=== PATIENT | male | born 1970 | race Caucasian/White ===

== ENCOUNTER 2017-06-08 14:21 | Inpatient (IN) | payer OTHER ==
[~2017-06-08] VITALS: Ht 172.7 cm; Wt 137.9 kg
--- NOTE | ~2017-06-08 | O ---
[place], [place] OPERATIVE NOTE NAME: CHARY COBURN UNIT #: [id number] ROOM: 521 DOCTOR: TWAN ALONSO DPM BIRTHDATE: [birth year] DOS: 06/09/2017 PREOPERATIVE DIAGNOSIS: Abscess, left foot with possible osteomyelitis. POSTOPERATIVE DIAGNOSIS: Abscess, left foot with possible osteomyelitis. Pending pathology. PROCEDURE: Incision and drainage, left foot with bone biopsy, fourth left metatarsal head. SURGEON: Twan Alonso DPM ESTIMATED BLOOD LOSS: 8 mL. SPECIMEN: Bone, fourth left metatarsal. PACKIN.5 inch plain packing. ANESTHESIA: MAC. PROCEDURE IN DETAIL: The patient was brought to the operating room, placed on the operating table in supine position. Anesthesia was administered per Anesthesia Department. The left lower extremity was prepped and draped in usual aseptic manner. Local block of 10 mL of 0.5% Marcaine plain was utilized for local block. There was an ulceration plantar to the fourth left MPJ with necrotic tissue noted. A Barnum elevator was utilized and the ulceration probed both proximally and distally, approximately a total of 6 cm. A 15 blade was utilized to incise the area through and through subcutaneous tissue level to the exposed fourth left metatarsal head. The Barnum elevator also was utilized to follow a tract to the dorsal aspect of the medial aspect of the fourth left toe, which was dorsally linearly incised with a 15 blade. All necrotic tissue was debrided and excised. There was foul odor, serous and purulent bloody drainage noted which was cultured. A Jamshidi needle was utilized to obtain bone specimens to be sent to pathology to rule out osteomyelitis and for separate cultures of the bone including Gram stain, aerobic, anaerobic, acid fast and fungal cultures. Next, copious irrigation was performed with sterile saline. The area was packed with 0.5 inch plain packing, sterile compression dressing consisting of wet-to-dry dressing of 4 x 4s, Kerlix, ABD, and Gerald bandage was applied. Capillary refill time was less than 1 second to all digits of the left foot. The patient tolerated the procedure and anesthesia well and left the OR with vital signs stable, and neurovascular status intact. The patient will return to the nursing unit after clearance by Anesthesia and resume previous orders, antibiotics per Infectious Disease and the patient will be seen tomorrow for a followup. [place], [place] OPERATIVE NOTE NAME: CHARY COBURN UNIT #: [id number] ROOM: 521 DOCTOR: TWAN ALONSO DPM BIRTHDATE: [birth year] TWAN ALONOS DPM CM:CARLOSECORD:OPERATIVE NOTE [id number] TWAN ALONSO DPM 06/10/17 0834 interface
--- NOTE | ~2017-06-08 | CON ---
[place], [place] REPORT OF CONSULTATION NAME: CHARY COBURN UNIT #: [id number] ROOM: 521 DOCTOR: ULYSSES ALONSO DPM BIRTHDATE: [birth year] DOS: 06/09/2017 SUBJECTIVE: The patient is a 46-year-old male with chief complaint of swelling and redness of the left foot, which has been evident for the last 4 days. The patient has pain to the area. The patient tried treating it himself. 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 SOCIAL HISTORY: Denies alcohol, illicit drug use or smoking. FAMILY HISTORY: Mother age 65. Father age 66. ALLERGIES: No known allergies. PHYSICAL EXAMINATION: LOWER EXTREMITY: Pedal pulses are palpable. There is decreased hair growth. There is an ulceration of plantar fourth left MPJ with foul odor noted, surrounding undermining noted. There is also to the tissue distally to the plantar fourth left toe. Fluctuance and apparent purulent drainage under the skin noted. IMAGING: Review of the radiographs by myself reveals clinically correlating possible gas in the soft tissue, which would correlate with the fluctuant apparent drainage. The patient's arterial studies were normal. His left foot MRI revealed ulceration, plantar aspect of fourth metatarsal head with cellulitis, diffuse forefoot soft tissue swelling and reactive ostitis within the plantar aspect of the fourth metatarsal head. No definitive acute osteomyelitis. They stated that no drainable abscess or fluid collection and myositis of the intrinsic muscles of the foot; however, clinically the patient does appear to have an abscess and noted purulence underneath the skin with correlation on the x-rays. ASSESSMENT: Diabetic foot infection, possible osteomyelitis, abscess, left foot. PLAN: Evaluation and management. The patient will be taken for incision and drainage with bone biopsy later tonight. Bactroban dressing applied currently and we will proceed with surgical intervention. [place], [place] REPORT OF CONSULTATION NAME: CHARY COBURN UNIT #: [id number] ROOM: 521 DOCTOR: ULYSSES ALONSO DPM BIRTHDATE: [birth year] ULYSSES ALONSO DPM CM:CONSTR:REPORT OF CONSULTATION 1211 06/09/17 2232 interface
--- NOTE | ~2017-06-08 | PROC NOTE ---
[place], [place] PROCEDURE NOTE NAME: CHARY COBURN UNIT #: [id number] ROOM: 521 DOCTOR: Silke Yepez BIRTHDATE: [birth year] DOS: 06/13/2017 REFERRING PHYSICIAN: Dr. Alanis. AGE: 46 years. BACKGROUND MEDICAL HISTORY: The patient was admitted to the hospital due to sepsis in his foot and a diabetic ulcer and was diagnosed with acute renal failure, cellulitis hyperglycemia, and elevated blood pressure. The patient also has a diagnosis of right lower lobe pneumonia and a modified barium swallow study was ordered to rule out aspiration. The patient reports no difficulty at bedside and nurses notes indicated no difficulty during meals at this time, and the patient states that he has no difficulty coughing or choking during the meals. Oral assessment was completed and lingual range of motion was decreased. Labial range of motion was within functional limits as well as strength and coordination, eliciting a dry cough was within functional limits and eliciting a dry swallow was also within functional limits at this time. METHODS OF MATERIALS: The patient was seated in a wheelchair and viewed in the lateral plane. The patient was given thin liquids by cup and by straw as well as nectar thick liquids by cup, pureed consistency to soft consistencies and a regular consistency material, all coated in liquid beers first for viewing under fluoroscopy. ORAL PHASE: This phase of swallow was essentially unremarkable. At this time, the patient demonstrated adequate labial seal and mastication. The patient's oral transit times were within functional limits. No piecemeal deglutition was noted and bolus formation was adequate. At this time, the tongue in the palate contact and tongue in the posterior pharyngeal wall contact were within functional limits. No tongue pumping was noted and Hubert function was noted as well. PHARYNGEAL PHASE: The patient demonstrated mild deficits with the pharyngeal phase at this time. Swallow trigger was timely this date and no premature loss of bolus was noted. The vallecular stasis did not occur during the assessment aside from minimal stasis noted after the swallow with puree consistency; however, this was cleared. Piriform stasis was also not noted during the assessment this date. The patient demonstrated flash penetration of thin liquids and nectar thick liquids; however, improvement was noted with a chin tuck. No aspiration occurred at any time during the assessment. ESOPHAGEAL PHASE: This phase of swallow was not formally assessed; however, no regurgitation of material was noted during the assessment. IMPRESSION AND RECOMMENDATIONS: The patient presents with mild pharyngeal deficits; however, no diet changes are recommended as the patient is tolerating his current diet and no aspiration was noted during the assessment. Flash penetration is normal and was cleared this date by the patient. It is recommended that the patient remain on his present diet and continued to eat slowly during meals. Monitor the patient for any changes in condition. The [place], [place] PROCEDURE NOTE NAME: CHARY COBURN UNIT #: [id number] ROOM: 521 DOCTOR: Silke Yepez BIRTHDATE: [birth year] patient also presented with involuntary movements during the assessment and throughout the session today of his trunk, head, neck, and arms. The patient was frequently moving during the assessment and it is possible that the movement contributed to his flash penetration as he was constantly moving while trying to swallow. This appears to be baseline for the patient. Therefore, no diet changes are recommended at this time. If you have any questions or comments regarding this assessment, please contact the speech pathology department at [phone]. Thank you for this referral. Silke Yepez CM:PROCNOTE:PROCEDURE NOTE [id number] Silke Yepez
--- NOTE | ~2017-06-08 | PR ---
[place], [place] PROGRESS NOTE NAME: CHARY COBURN UNIT #: [id number] ROOM: 521 DOCTOR: ULYSSES ALONSO DPM BIRTHDATE: [birth year] DOS: 06/11/2017 SUBJECTIVE: The patient is seen for follow up post I and D of abscess, left foot, day 2. The patient feels less discomfort at this time. OBJECTIVE: Upon removal of the dressing and packing, there is definite decrease in erythema and edema from pre-surgical appearance. There are no further signs of purulent drainage, much improved overall. ASSESSMENT: Postop incision and drainage of abscess, left foot. PLAN: The packing and dressing change this visit. Discussed the case with the patient that he may need delayed primary closure or a wound VAC and possible hyperbaric oxygen treatment along with proper offloading for the diabetic foot and IV antibiotics. Time span depending on results of the bone biopsy and cultures and to be determined by ID. I will write for physical therapy for crutch training and the patient can ambulate with no weight to the left foot with crutches. ULYSSES ALONSO DPM CM:KRYSTLE [id number] ULYSSES ALONSO DPM 06/11/17 1558 interface
--- NOTE | ~2017-06-08 | PR ---
[place], [place] PROGRESS NOTE NAME: CHARY COBURN UNIT #: [id number] ROOM: 521 DOCTOR: UYLSSES ALONSO DPM BIRTHDATE: [birth year] DOS: 06/10/2017 SUBJECTIVE: The patient is seen postop I and D of abscess of left foot, day #1. The patient has some discomfort. OBJECTIVE: Upon removal of the dressing and packing, there is decreased erythema and decreased edema. There are no further signs of purulent drainage or foul odor. The area has improved from surgery. ASSESSMENT: Post incision and drainage of abscess with bone biopsy, left foot. PLAN: Dressing and packing changes visit ordered, half inch plain packing with wet to dry dressing twice a day. Discussed with the patient and his daughter. We may start a wound VAC on Monday. We will perform the b.i.d. packing and dressing changes until that point, continue antibiotics per Infectious Disease. Cultures results are still pending. Bone biopsy results still pending. The patient will be seen tomorrow or Monday for followup. ULYSSES ALONSO DPM CM:KRYSTLE [id number] ULYSSES ALONSO DPM 06/10/17 1211 interface
--- NOTE | ~2017-06-08 | PR ---
[place], [place] PROGRESS NOTE NAME: CHARY COBURN UNIT #: [id number] ROOM: 521 DOCTOR: RAGHAV GARCIA DPM BIRTHDATE: [birth year] DOS: 06/12/2017 SUBJECTIVE: The patient is seen postop day 3, status post I and D of abscess, left foot. States he feels well, only minimal discomfort. Denies fever, chills, nausea, vomiting or night sweats. OBJECTIVE: Upon removal of packing and dressing, the area is very clean and granular with no purulent drainage or malodor. The area is clean. No surrounding edema or erythema. No signs of remaining abscess and only minimal erythema is seen. ASSESSMENT: Postop day #3, status post incision and drainage of abscess, left foot, doing well. PLAN: Packing and dressing is changed. Discussed with the patient it is okay from Podiatry standpoint if can be discharged, nonweightbearing with crutches, with packing and dressing changes daily. He has an appointment tomorrow to follow up in the wound care center. He can follow up there for postop visit in crutches, nonweightbearing with daily wound care. If he is still there tomorrow, we will see him. If not, he will follow up at wound care center. RAGHAV GARCIA DPM CM:PNTRANS [id number] RAGHAV GARCIA DPM 06/12/17 1434 interface
--- NOTE | ~2017-06-08 | PR ---
[place], [place] PROGRESS NOTE NAME: CHARY COBURN UNIT #: [id number] ROOM: 521 DOCTOR: ULYSSES ALONSO DPM BIRTHDATE: [birth year] DOS: 06/13/2017 SUBJECTIVE: The patient is seen post I and D of abscess, left foot. The patient is resting comfortably without pain. OBJECTIVE: Upon removal of dressing and packing post-abscess, it is granulating well. No signs of purulent drainage or foul odor. No erythema or edema. ASSESSMENT: Post incision and drainage of abscess, left foot with bone biopsy. PLAN: Packing and dressing changes visit. The patient is being discharged to be nonweightbearing with crutches. Home nursing is to apply packing and wet to dry dressing daily. I spoke with Dr. Del Castillo at the [facility] who will see the patient for possible hyperbaric oxygen treatment and possible wound VAC or delayed closure. If our assistance is needed to perform delayed closure procedure, we will perform the procedure. But again, I think the patient may be a candidate for the hyperbaric oxygen treatment along with wound VAC and antibiotics per Infectious Disease. ULYSSES ALONSO DPM CM:KRYSTLE [id number] ULYSESS ALONSO DPM 06/13/171741 interface
[~2017-06-08 14:21] MED LIST: ANAPROX DS550 MG PO; CLEOCIN HCL150 MG PO; FLOMAX0.4 MG PO; HYDROCODONE BIT1 T11 PO; VICODIN 5/500 505 MG PO
[2017-06-08 14:44] VITALS: BP 150/92
[2017-06-08 15:27] LABS: BASO # 0.1 10*3/uL (0.0-0.1); BASO % 0.4 % (0.0-1.0); EOS # 0.1 10*3/uL (0.0-0.4); EOS % 0.9 % (1.0-4.0); HEMATOCRIT 40.9 % (42.0-52.0); HEMOGLOBIN 14.4 g/dl (14.0-18.0); IG # 0.1 10*3/uL (0.0-0.1); LYMPH # 2.1 10*3/uL (1.3-4.4); LYMPH % 15.9 % (27.0-41.0); MEAN CELL VOLUME 83.3 fl (80.0-94.0); MEAN CORPUSCULAR HGB 29.3 pg (27.0-31.0); MEAN CORPUSCULAR HGB CONC 35.2 g/dl (33.0-37.0); MONO # 0.9 10*3/uL (0.1-1.0); MONO % 6.7 % (3.0-9.0); NEUT # 10.1 10*3/uL (2.3-7.9); NEUT % 75.6 % (47.0-73.0); PLATELET COUNT AUTOMATED 218 10*3/uL (130-400); RED BLOOD COUNT 4.91 10*6/uL (4.50-5.90); RED CELL DISTRI WIDTH 13.5 % (0-14.5); WHITE BLOOD COUNT 13.4 10*3/uL (4.8-10.8)
[2017-06-08 15:45] LABS: ALBUMIN 3.2 gm/dl (3.1-4.5); ALKALINE PHOSPHATASE 63 U/L (45-117); BILIRUBIN, TOTAL 1.4 mg/dl (0.2-1.0); BUN 17 mg/dl (7-24); CARBON DIOXIDE 24 mmol/L (21-32); CHLORIDE 97 mmol/L (98-107); EST GLOM FILT AFRICAN AMERICAN 48 ml/min; GLUCOSE 398 mg/dL (65-99); POTASSIUM 4.2 mmol/L (3.5-5.1); SGOT/AST 12 IU/L (3-35); SGPT/ALT 22 U/L (12-78); SODIUM 133 mmol/L (136-145)
[2017-06-08 15:46] LABS: TROPONIN I < 0.015 ng/ml (<0.045)
[2017-06-08 16:51] VITALS: BP 152/70
[2017-06-08 17:19] VITALS: BP 155/77
[2017-06-08 17:23] LABS: LA>2 REFLEX 2 HR DRAW NOW
[2017-06-08 17:42] VITALS: BP 156/78
[2017-06-08 20:00] VITALS: BP 105/46
[2017-06-09] VITALS (8 sets, daily range): BP systolic 130–161; BP diastolic 63–102
[2017-06-09 06:24] LABS: BASO % 0.4 % (0.0-1.0); EOS # 0.3 10*3/uL (0.0-0.4); EOS % 2.3 % (1.0-4.0); HEMATOCRIT 39.4 % (42.0-52.0); HEMOGLOBIN 13.2 g/dl (14.0-18.0); LYMPH % 18.5 % (27.0-41.0); MEAN CELL VOLUME 85.5 fl (80.0-94.0); MEAN CORPUSCULAR HGB 28.6 pg (27.0-31.0); MEAN CORPUSCULAR HGB CONC 33.5 g/dl (33.0-37.0); MEAN PLATELET VOLUME 10.4 fl (9.6-12.3); MONO # 0.8 10*3/uL (0.1-1.0); MONO % 7.3 % (3.0-9.0); NEUT # 7.9 10*3/uL (2.3-7.9); NEUT % 71.1 % (47.0-73.0); PLATELET COUNT AUTOMATED 204 10*3/uL (130-400); RED BLOOD COUNT 4.61 10*6/uL (4.50-5.90); RED CELL DISTRI WIDTH 13.8 % (0-14.5)
[2017-06-09 06:42] LABS: ALBUMIN 2.6 gm/dl (3.1-4.5); ALKALINE PHOSPHATASE 56 U/L (45-117); BUN 17 mg/dl (7-24); CARBON DIOXIDE 25 mmol/L (21-32); CHLORIDE 103 mmol/L (98-107); CHOLESTEROL 127 mg/dL (<200); EST GLOM FILT AFRICAN AMERICAN > 60 ml/min; GLUCOSE 308 mg/dL (65-99); HDL CHOLESTEROL 28 mg/dl (40-60); LDL CHOLESTEROL 25 mg/dL (9-159); MAGNESIUM 1.9 mg/dL (1.5-2.1); PHOSPHOROUS 3.1 mg/dL (2.5-4.9); SGOT/AST 13 IU/L (3-35); SGPT/ALT 17 U/L (12-78); SODIUM 137 mmol/L (136-145); TOTAL PROTEIN 6.8 gm/dL (6.4-8.2); TRIGLYCERIDES 368 mg/dl (<150); VLDL CHOLESTEROL 74 mg/dL (6-40)
[2017-06-09 06:57] LABS: HEMOGLOBIN A1c 10.1 % (4.8-5.6)
[2017-06-09 07:34] LABS: FOLIC ACID 11.56 ng/mL (>5.38); VITAMIN D, 25-HYDROXY 14.6 ng/mL (30-100)
[2017-06-10] VITALS: BP 144/72
[2017-06-10 06:17] LABS: BASO # 0.1 10*3/uL (0.0-0.1); BASO % 0.4 % (0.0-1.0); EOS # 0.3 10*3/uL (0.0-0.4); EOS % 2.3 % (1.0-4.0); HEMATOCRIT 39.9 % (42.0-52.0); HEMOGLOBIN 13.7 g/dl (14.0-18.0); IG # 0.1 10*3/uL (0.0-0.1); LYMPH # 2.2 10*3/uL (1.3-4.4); MEAN CELL VOLUME 85.6 fl (80.0-94.0); MEAN CORPUSCULAR HGB 29.4 pg (27.0-31.0); MEAN CORPUSCULAR HGB CONC 34.3 g/dl (33.0-37.0); MEAN PLATELET VOLUME 9.4 fl (9.6-12.3); MONO # 0.9 10*3/uL (0.1-1.0); MONO % 7.6 % (3.0-9.0); NEUT # 8.1 10*3/uL (2.3-7.9); NEUT % 70.2 % (47.0-73.0); PLATELET COUNT AUTOMATED 219 10*3/uL (130-400); RED BLOOD COUNT 4.66 10*6/uL (4.50-5.90); RED CELL DISTRI WIDTH 13.8 % (0-14.5); WHITE BLOOD COUNT 11.6 10*3/uL (4.8-10.8)
[2017-06-10 06:39] LABS: POTASSIUM 4.2 mmol/L (3.5-5.1)
[2017-06-10 08:00] VITALS: BP 156/78
[2017-06-10 12:00] VITALS: BP 148/75
[2017-06-10 14:14] VITALS: BP 176/88
[2017-06-10 16:00] VITALS: BP 154/81
[2017-06-10 20:00] VITALS: BP 160/72
[2017-06-11] VITALS: BP 135/70
[2017-06-11 06:18] LABS: BASO % 0.4 % (0.0-1.0); EOS # 0.2 10*3/uL (0.0-0.4); EOS % 2.4 % (1.0-4.0); HEMATOCRIT 37.5 % (42.0-52.0); HEMOGLOBIN 12.8 g/dl (14.0-18.0); LYMPH # 2.3 10*3/uL (1.3-4.4); LYMPH % 25.4 % (27.0-41.0); MEAN CELL VOLUME 85.6 fl (80.0-94.0); MEAN CORPUSCULAR HGB 29.2 pg (27.0-31.0); MEAN CORPUSCULAR HGB CONC 34.1 g/dl (33.0-37.0); MEAN PLATELET VOLUME 9.7 fl (9.6-12.3); MONO # 0.7 10*3/uL (0.1-1.0); MONO % 7.3 % (3.0-9.0); NEUT # 5.8 10*3/uL (2.3-7.9); NEUT % 64.1 % (47.0-73.0); PLATELET COUNT AUTOMATED 235 10*3/uL (130-400); RED BLOOD COUNT 4.38 10*6/uL (4.50-5.90); RED CELL DISTRI WIDTH 13.5 % (0-14.5); WHITE BLOOD COUNT 9.1 10*3/uL (4.8-10.8)
[2017-06-11 06:20] LABS: ALBUMIN 2.4 gm/dl (3.1-4.5); BILIRUBIN, TOTAL 1.2 mg/dl (0.2-1.0); PHOSPHOROUS 3.9 mg/dL (2.5-4.9); TOTAL PROTEIN 6.9 gm/dL (6.4-8.2)
[2017-06-11 08:00] VITALS: BP 134/86
[2017-06-11 12:00] VITALS: BP 130/82
[2017-06-11 16:00] VITALS: BP 158/89
[2017-06-11 20:00] VITALS: BP 160/90
[2017-06-12] VITALS: BP 124/65
[2017-06-12 06:46] LABS: BASO % 0.3 % (0.0-1.0); EOS # 0.1 10*3/uL (0.0-0.4); EOS % 0.5 % (1.0-4.0); HEMATOCRIT 39.5 % (42.0-52.0); HEMOGLOBIN 13.6 g/dl (14.0-18.0); IG # 0.1 10*3/uL (0.0-0.1); LYMPH # 1.9 10*3/uL (1.3-4.4); LYMPH % 13.8 % (27.0-41.0); MEAN CELL VOLUME 83.3 fl (80.0-94.0); MEAN CORPUSCULAR HGB 28.7 pg (27.0-31.0); MEAN CORPUSCULAR HGB CONC 34.4 g/dl (33.0-37.0); MEAN PLATELET VOLUME 9.5 fl (9.6-12.3); MONO # 0.7 10*3/uL (0.1-1.0); MONO % 5.2 % (3.0-9.0); NEUT # 10.9 10*3/uL (2.3-7.9); NEUT % 79.5 % (47.0-73.0); PLATELET COUNT AUTOMATED 296 10*3/uL (130-400); RED BLOOD COUNT 4.74 10*6/uL (4.50-5.90); RED CELL DISTRI WIDTH 13.2 % (0-14.5); WHITE BLOOD COUNT 13.7 10*3/uL (4.8-10.8)
[2017-06-12 08:00] VITALS: BP 126/52; BP 126/74
[2017-06-12 12:00] VITALS: BP 136/65
[2017-06-12] MEDS ORDERED: KEFLEX500 M1 PO (14:17)
[2017-06-12 16:00] VITALS: BP 134/75
[2017-06-12 20:00] VITALS: BP 156/99
[2017-06-13] VITALS: BP 133/76
[2017-06-13 07:47] LABS: BASO # 0.1 10*3/uL (0.0-0.1); BASO % 0.6 % (0.0-1.0); EOS # 0.3 10*3/uL (0.0-0.4); EOS % 3.5 % (1.0-4.0); HEMATOCRIT 40.3 % (42.0-52.0); HEMOGLOBIN 13.8 g/dl (14.0-18.0); IG # 0.1 10*3/uL (0.0-0.1); LYMPH # 2.7 10*3/uL (1.3-4.4); LYMPH % 29.1 % (27.0-41.0); MEAN CELL VOLUME 85.6 fl (80.0-94.0); MEAN CORPUSCULAR HGB 29.3 pg (27.0-31.0); MEAN CORPUSCULAR HGB CONC 34.2 g/dl (33.0-37.0); MEAN PLATELET VOLUME 9.4 fl (9.6-12.3); MONO # 0.6 10*3/uL (0.1-1.0); MONO % 5.9 % (3.0-9.0); NEUT # 5.7 10*3/uL (2.3-7.9); NEUT % 60.3 % (47.0-73.0); PLATELET COUNT AUTOMATED 264 10*3/uL (130-400); RED BLOOD COUNT 4.71 10*6/uL (4.50-5.90); RED CELL DISTRI WIDTH 13.5 % (0-14.5); WHITE BLOOD COUNT 9.4 10*3/uL (4.8-10.8)
[2017-06-13 08:00] VITALS: BP 130/78
[2017-06-13 08:07] LABS: POTASSIUM 3.9 mmol/L (3.5-5.1)
[2017-06-13 12:00] VITALS: BP 127/70
[2017-06-13] MEDS ORDERED: LEVEMIR10 ML SC (12:10)
[2017-06-13] MEDS ORDERED: D-1000 185 MG-11 TAB PO (12:10)
[2017-06-13] MEDS ORDERED: MUCINEX ER600 MG PO (12:10)
[2017-06-13] MEDS ORDERED: LOPRESSOR25 MG PO (12:10)
[2017-06-13] MEDS ORDERED: HUMALOG100 U/ML SC (12:10)
[2017-06-13] MEDS ORDERED: NEURONTIN100 MG PO (12:12)
[2017-06-14 15:07] LABS: LEGIONELLA URINARY ANTIGEN Negative (Negative); ORGANISM ID Not indicated. (.); SPECIMEN SOURCE Urine (.); STREPTOCOCCUS PNEUMONIAE AG Negative (Negative)
== END 2017-06-13 13:44 | disposition home or self-care (01) | DRG 853 ==
LOC: ED 14:21 → EDHOLD 16:38 → 5E 16:38
PROVIDERS: Hospitalist; Internal Medicine; Registered Nurse
PROC: 0QBP0ZX Excision of Left Metatarsal, Open Approach, Diagnostic (ICD-10-PCS; principal; 2017-06-09)
PROC: BD11YZZ Fluoroscopy of Esophagus using Other Contrast (ICD-10-PCS; 2017-06-13)
DX: A41.9 Sepsis, unspecified organism (principal); N17.0 Acute kidney failure with tubular necrosis; E43 Unspecified severe protein-calorie malnutrition; E87.2 Acidosis; E11.621 Type 2 diabetes mellitus with foot ulcer; J18.1 Lobar pneumonia, unspecified organism; E87.8 Other disorders of electrolyte and fluid balance, not elsewhere classified; B86 Scabies; L03.116 Cellulitis of left lower limb; E87.1 Hypo-osmolality and hyponatremia; Z68.42 Body mass index [BMI] 45.0-49.9, adult; R65.20 Severe sepsis without septic shock; E66.01 Morbid (severe) obesity due to excess calories; E83.51 Hypocalcemia; E11.65 Type 2 diabetes mellitus with hyperglycemia; E80.6 Other disorders of bilirubin metabolism; L97.529 Non-pressure chronic ulcer of other part of left foot with unspecified severity; E55.9 Vitamin D deficiency, unspecified; E78.2 Mixed hyperlipidemia; Z71.3 Dietary counseling and surveillance

== ENCOUNTER → 2017-06-20 | Outpatient (CLI) | payer OTHER ==
[~2017-06-20] MED LIST changes: +D-1000 185 MG-11 TAB PO; +HUMALOG100 U/ML SC; +KEFLEX500 M1 PO; +LEVEMIR10 ML SC; +LOPRESSOR25 MG PO; +MUCINEX ER600 MG PO; +NEURONTIN100 MG PO
== END | disposition home or self-care (01) ==
LOC: RESCLI 06-13 02:26
DX: E11.621 Type 2 diabetes mellitus with foot ulcer (principal); I10 Essential (primary) hypertension; L97.509 Non-pressure chronic ulcer of other part of unspecified foot with unspecified severity; G62.9 Polyneuropathy, unspecified; G25.0 Essential tremor; E55.9 Vitamin D deficiency, unspecified; E66.09 Other obesity due to excess calories

== ENCOUNTER 2017-07-04 00:04 | Inpatient (IN) | payer OTHER ==
[~2017-07-04] VITALS: Ht 172.7 cm; Wt 128.0 kg
[2017-07-04] VITALS (13 sets, daily range): BP systolic 101–163; BP diastolic 62–89
--- NOTE | ~2017-07-04 | CON ---
[place], [place] REPORT OF CONSULTATION NAME: CHARY COBURN UNIT #: [id number] ROOM: 516 DOCTOR: ULYSSES ALONSO DPM BIRTHDATE: [birth year] DOS: 07/04/2017 SUBJECTIVE: The patient is a 46-year-old male who is seen for infection again to the left foot. The patient was doing well with outpatient therapy and improving and a wound VAC was ordered and was to be applied today at the office; however, over the last 2 days, the patient and his family member noticed increased redness and swelling and yesterday, they noted drainage and a foul odor and the patient went to the Emergency Room and was subsequently admitted. PAST MEDICAL HISTORY: Acute renal failure, diabetes, pneumonia, hyperlipidemia, moderate protein calorie malnutrition, morbid obesity, vitamin D deficiency, history of hip surgery, essential tremor, disease. SOCIAL HISTORY: Denies alcohol, illicit drug use or smoking. FAMILY HISTORY: Mother at age 65. Father at age 66. ALLERGIES: No known allergies. PHYSICAL EXAMINATION: LOWER EXTREMITIES: Examination, pedal pulses palpable. There is erythema to the left forefoot. There is purulent drainage and foul odor noted from the previous incision site to the plantar left foot consistent with abscess. The erythema extending to the dorsal foot. There is mild tenderness to the area noted. ASSESSMENT: Abscess, left foot, possible progressing osteomyelitis. PLAN: Evaluation and management discussed with the patient's family member. The patient needs to return to the operating room for incision and drainage with possible additional bone biopsy. The patient will be n.p.o. immediately and will be taken to surgery later today. Consent surgery would be incision and drainage, left foot with bone biopsy, left foot. ULYSSES ALONSO DPM CM:CONSTR:REPORT OF CONSULTATION 1139 07/04/17 1206 interface
--- NOTE | ~2017-07-04 | PR ---
[place], [place] PROGRESS NOTE [facility]: [facility]URN [id number] UNIT #: [id number] ROOM: 516 DOCTOR: RAGHAV GARCIA DPM BIRTHDATE: [birth year] DOS: 07/07/2017 SUBJECTIVE: The patient is seen postop day 3, I and D of abscess, left foot. He states he thinks he is feeling better and his left foot is not as painful. OBJECTIVE: Wound VAC is removed at this time. There is noted to be edematous and erythematous area at the dorsal left distal fourth intermetatarsal space and dorsal left fifth metatarsal. Upon probe in the area plantarly and squeezing the dorsal foot, there is about 2-3 mL of purulence that are removed from the area that appears to be an abscess at the dorsal lateral left forefoot. The area is warm and red and the plantar wound tracks dorsally to this area. The patient's white blood cell count is still elevated at 11.5 and his sed rate is still elevated at 135. ASSESSMENT: Status post I and D, left foot, with another abscess dorsal lateral left forefoot. PLAN: Wound VAC was removed. Again, there was found to be an abscess dorsal lateral left forefoot. The plantar wound appears to tract to dorsal and lateral into the area of the abscess. I called Dr. Omer and also discussed with the patient. I feel the patient needs to be taken back to surgery to debride the wound, incise that area and flush it out. This was discussed with the patient, need to do this today. The patient was made n.p.o. and consent will be obtained for incision and drainage of abscess, left foot, with debridement. I think the patient will benefit from further debridement, irrigation and then obviously incising the area at the dorsal lateral foot. He is agreeable with this. I discussed possible complications with the patient. We will try to get this set up later today for Dr. Omer and again, he was made n.p.o. now. He has not eaten since breakfast. RAGHAV GARCIA DPM CM:PNTRANS [id number] RAGHAV GARCIA Sejal 07/11/17 0712 interface
--- NOTE | ~2017-07-04 | O ---
[place], [place] OPERATIVE NOTE NAME: CHARY COBURN UNIT #: [id number] ROOM: 516 DOCTOR: TWAN ALONSO DPM BIRTHDATE: [birth year] DOS: 07/07/2017 INTERIM NOTE: The patient was seen on the nursing unit today by Dr. Hoang who noted a new abscess site overlying the fifth left metatarsophalangeal joint. He was able to drain pus from the area, but thought that it may track deeper, subsequently it was decided to proceed with additional incision and drainage of the left foot with debridement. PREOPERATIVE DIAGNOSIS: Abscess, left foot with osteomyelitis. POSTOPERATIVE DIAGNOSIS: Abscess, left foot with osteomyelitis with new pockets of abscess from previous surgical intervention performed 2 days ago. PROCEDURE: Incision and drainage of multiple pockets of abscess, left foot and both plantar and dorsal aspect. SURGEON: Twan Alonso DPM FORENSIC STRUCTURAL ENGINEER: None. ESTIMATED BLOOD LOSS: Approximately 10 mL. ANESTHESIA: LMAC. PACKING: One-inch plain packing. SPECIMEN: None. PROCEDURE DETAILS: The patient was brought to the operating room placed on operating table in supine position. Anesthesia administered per Anesthesia Department. Local infiltration of 10 mL of 0.5% Marcaine plain was utilized for local block. The left foot was prepped and draped in usual aseptic manner. Attention was directed to the plantar incision site, which was probed with Amalia elevator, new additional pockets were identified and incised with a #15 blade. A new sinus tract was noted to track to the dorsal fifth left MPJ, which was linearly incised approximately 3 cm in length to the dorsal foot, this was noted to track dorsally proximally, which was opened with #15 blade and drained. The sinus tract was opened again also to the medial aspect of the fourth left toe. Necrotic nonviable tissue was excised with rongeur. No further sinus tracts were identified and approximately 10 mL of serous drainage was noted and drained. Culture was taken of the dorsal fifth MPJ abscess site. The area was copiously flushed with pulse power irrigation with sterile saline. The areas were packed with 1 inch plain packing with wet-to-dry dressing with 4 x 4s, Kerlix, ABD pads, and Gerald bandage. The patient tolerated the procedure and anesthesia well and left the OR with vital signs stable, neurovascular status intact. Capillary refill time was still noted to be within normal limits to all digits of the left foot. The patient will return to nursing unit and resume previous orders. Elevate the left foot, apply ice 30 minutes per hour under the left knee while awake. No weightbearing in the left foot. Reinforce dressing as needed, and I will see the patient tomorrow morning and possibly resume the [place], [place] OPERATIVE NOTE NAME: CHARY COBURN UNIT #: [id number] ROOM: 516 DOCTOR: TWAN ALONSO DPM BIRTHDATE: [birth year] wound VAC at that time after removal of the packing. I discussed with the patient both preoperatively and postoperatively, he is still at severe risk for limb loss, loss of digits or forefoot. The patient understood this and stated he would be more compliant at this time. The patient will be released back to the nursing unit on the fifth floor after discharge via clearance by Anesthesia. TWAN ALONSO DPM CM:OPRECORD:OPERATIVE NOTE [id number] TWAN ALONSO DPM 07/08/17 0547 interface
--- NOTE | ~2017-07-04 | PR ---
[place], [place] PROGRESS NOTE NAME: CHARY COBURN UNIT #: [id number] ROOM: 516 DOCTOR: ULYSSES ALONSO DPM BIRTHDATE: [birth year] DOS: 07/06/2017 SUBJECTIVE: The patient is seen postop day 2 post I and D of abscess. The patient feels decreased pain at this time to the left foot. OBJECTIVE: The wound VAC is in place. Decreased surrounding erythema, decreased pain to the foot. Decreased overall edema. Results of the patient's blood culture showed no bacterial growth. The patient's WBC has decreased somewhat to 11.7. C-reactive protein has decreased to 7.06. The patient's wound culture consistent with E. coli. ASSESSMENT: Post incision and drainage of abscess with Escherichia coli infection. PLAN: Continue wound VAC. Continue IV antibiotics per ID who has not seen the patient yet. Discussed the patient's case with Dr. Monreal on the floor. Ordered new CBC with diff, sed rate and C-reactive protein for tomorrow morning. Discussed the case with Dr. Hoang who will see the patient tomorrow. If no improvement, possible additional debridement may need to be performed; however, the patient currently appears to be improving. We will monitor the patient closely. The patient is not stable enough to be discharged in my opinion at this time and is still at very high risk for limb loss. I discussed this with the patient in detail. He needs to maintain compliance this time after his discharge and not go back to work and is to maintain nonweightbearing. Still awaiting for results of the bone biopsy. The patient will be seen again tomorrow for continued care and followup and the patient will need at least 2 weeks of IV antibiotic treatment potentially 6 weeks if the bone biopsy is positive. ULYSSES ALONSO DPM CM:PNRENAN 30 [phone] ULYSSES ALONSO DPM 07/06/172120 interface
--- NOTE | ~2017-07-04 | O ---
[place], [place] OPERATIVE NOTE NAME: CHARY COBURN UNIT #: [id number] ROOM: 516 DOCTOR: TWAN ALONSO DPM BIRTHDATE: [birth year] DOS: 07/05/2017 INTERIM NOTE: The patient presents as a 46-year-old male for surgical intervention of the left foot. The patient did not offload his foot as directed after his previous surgery and subsequently became infected again. The patient was admitted again to the hospital last night. The patient had been seen last and the wound was clean with no signs of purulent drainage or foul odor and a wound VAC was ordered for the patient. The patient was seen preoperatively. Discussed with the patient and his family member he needs to maintain compliance as the patient is at extreme risk for limb loss and sepsis. We decided to proceed with incision and drainage of left foot with bone biopsy. PREOPERATIVE DIAGNOSIS: Abscess, left foot with possible osteomyelitis. POSTOPERATIVE DIAGNOSIS: Multiple pockets of abscess throughout the plantar left foot all different tissue levels and possible osteomyelitis, pending pathology. PROCEDURE: Incision and drainage of multiple pockets of abscess, plantar aspect of left foot extending the dorsal left foot with bone biopsy of the fourth left metatarsal. SURGEON: Twan Alonso DPM. MEDICAL FACILITIES SECTION DIRECTOR: None. ESTIMATED BLOOD LOSS: Approximately 20 mL. ANESTHESIA: LMAC Packin.5 inch plain packing. SPECIMEN: From the fourth left metatarsal. DESCRIPTION OF PROCEDURE: The patient was brought to operating room and placed on the operating table in supine position. Anesthesia was administered per Anesthesia Department. The left lower extremity was prepped and draped in usual aseptic manner. No tourniquet was utilized during the procedure. Local infiltration of 8 mL of 0.5% Marcaine plain was utilized for local block. Attention was directed to the previous incision site at the plantar aspect of left foot where purulent drainage was noted. The wound was probed with a [place] elevator and was noted to extend proximally. This was opened down to the deep layers of the foot with a #15 blade. There are multiple pockets noted throughout the different tissue planes with pockets of purulent drainage. These were all opened with a 15 blade and rongeur. The necrotic nonviable tissue was debrided with a rongeur. The wound was noted to track to the dorsal aspect of the fourth left MPJ. This was also opened with a 15 blade. All pockets throughout the tissue planes were opened and drained. There was approximately 15 mL of purulent drainage that was drained with foul odor. Deep cultures were taken of the soft tissue and separately of the bone for Gram stain, aerobic, anaerobic, acid fast and fungal cultures. A Jamshidi needle was utilized to obtain bone from the fourth left metatarsal, which samples were sent for both [place], [place] OPERATIVE NOTE NAME: CHARY COBURN UNIT #: [id number] ROOM: [facility] DOCTOR: TWAN ALONSO DPM BIRTHDATE: [birth year] culture and pathology to rule out osteomyelitis. Extensive irrigation was performed with pulse power irrigation to flush out any remaining drainage or foul odor from the wound. The wound was noted to be clean after sterile flush and debridement. There was no further evidence of foul odor or purulence at this time. Subsequently, all the tissue planes were packed with 0.5 inch plain packing both plantarly and dorsally. The incision in the plantar foot was approximately 9 cm in length. The dorsal foot was approximately 2 cm in length. The area was then dressed with a wet to dry dressing consisting of 4 x 4s, Kerlix, ABD and Gerald bandage. The patient tolerated the procedures and anesthesia well and left the OR with vital signs stable and neurovascular status intact. Capillary refill time was noted to be less than 1 second to all digits of the left foot. The patient will be transferred back to the nursing unit after anesthesia clears the patient for return to the floor, will resume previous orders. The patient is to maintain strict nonweightbearing crutches only, reinforce the dressing as needed, elevate the left leg, ice behind the left knee at 30 minute intervals. Additionally, the patient will be seen tomorrow for packing and dressing change and possible wound VAC consultation at that time to be started. The patient is to maintain strict nonweightbearing and will reinforce again with the patient and his family he cannot return to work, that he is at high risk for limb loss and sepsis or even . Again, the patient will be seen tomorrow. TWAN ALONSO DPM CM:OPRECORD:OPERATIVE NOTE [id number] TWAN ALONSO DPM 07/11/17 0711 interface
--- NOTE | ~2017-07-04 | PR ---
[place], [place] PROGRESS NOTE NAME: CHARY COBURN UNIT #: [id number] ROOM: 516 DOCTOR: RAGHAV GARCIA DPM BIRTHDATE: [birth year] DOS: 07/10/2017 SUBJECTIVE: The patient presents today status post I and D of abscess, left foot. States he is feeling well. Denies fever, chills, nausea, vomiting or night sweats. OBJECTIVE: Upon removal of the wound VAC, the plantar and dorsal foot wounds are very clean. There is minimal malodor. There is no expressible purulent drainage. Previous edema and erythema at the dorsal lateral left forefoot has gone and the wounds look much more clean and granular than it did on Monday. No signs of remaining abscess at this time. ASSESSMENT: Status post incision and drainage of abscess for severe diabetic foot infection, osteomyelitis, left foot. PLAN: His wound looks significantly better at the plantar and dorsal left forefoot. We would to go home with the [facility] wound [facility]. This was applied today. We will get him a wheelchair to be nonweightbearing on the left foot. He will follow up at the wound care center for and wound care. He will get IV antibiotic therapy per Infectious Disease. Right now, he is doing well and he is okay to discharge from Podiatry standpoint. RAGHAV GARCIA DPM CM:PNRENAN [id number] RAGHAV GARCIA DPM 07/10/17 1337 interface
--- NOTE | ~2017-07-04 | PR ---
[place], [place] PROGRESS NOTE NAME: CHARY COBURN UNIT #: [id number] ROOM: 516 DOCTOR: ULYSSES ALONSO DPM BIRTHDATE: [birth year] DOS: 07/08/2017 SUBJECTIVE: The patient presents post I and D of abscess, left foot. The patient feels less pain today than he did last night. OBJECTIVE: Upon removal of the dressing and packing, there is still foul odor from the new abscess site of the dorsal fifth left MPJ. There are no signs of purulent drainage noted; however, the erythema surrounding the new abscess site has resolved from appearance prior to surgical intervention. The plantar wound appears improving. There is less necrotic tissue postsurgery. There are no apparent new pockets of abscess identified. ASSESSMENT: Severe diabetic foot infection, left foot with osteomyelitis, post incision and drainage of abscess. PLAN: Ordered the wound VAC to be applied, continuous at 125 mmHg. Continue antibiotics per Infectious Disease. Ordered new CBC with diff, sed rate, C-reactive protein for the morning. Discussed with the patient we will keep him in-house until he is stabilized and his numbers start to improve. Again, the patient is still at high risk for limb loss and for new pockets of abscess. We will monitor the patient's blood work and keep the patient in-house until at least Monday. Discussed with the patient we may have him follow at the wound care center for continuation of the wound VAC and additionally hyperbaric oxygen treatment to try and heal the large wound and prevent limb loss. ULYSSES ALONSO DPM CM:PNTRANS [id number] ULYSSES ALONSO DPM 07/08/17 1053 interface
[2017-07-04 00:49] LABS: BASO % 0.3 % (0.0-1.0); EOS # 0.4 10*3/uL (0.0-0.4); HEMATOCRIT 33.7 % (42.0-52.0); HEMOGLOBIN 11.5 g/dl (14.0-18.0); LYMPH # 1.9 10*3/uL (1.3-4.4); LYMPH % 16.2 % (27.0-41.0); MEAN CELL VOLUME 81.6 fl (80.0-94.0); MEAN CORPUSCULAR HGB 27.8 pg (27.0-31.0); MEAN CORPUSCULAR HGB CONC 34.1 g/dl (33.0-37.0); MEAN PLATELET VOLUME 10.1 fl (9.6-12.3); MONO # 0.9 10*3/uL (0.1-1.0); MONO % 7.9 % (3.0-9.0); NEUT # 8.6 10*3/uL (2.3-7.9); NEUT % 71.9 % (47.0-73.0); PLATELET COUNT AUTOMATED 207 10*3/uL (130-400); RED BLOOD COUNT 4.13 10*6/uL (4.50-5.90); RED CELL DISTRI WIDTH 13.8 % (0-14.5); WHITE BLOOD COUNT 11.9 10*3/uL (4.8-10.8)
[2017-07-04 01:04] LABS: ALBUMIN 2.6 gm/dl (3.1-4.5); CREATININE 1.72 mg/dL (0.70-1.30); POTASSIUM 3.9 mmol/L (3.5-5.1); TOTAL PROTEIN 7.9 gm/dL (6.4-8.2)
[2017-07-04 08:49] LABS: BASO % 0.4 % (0.0-1.0); EOS # 0.3 10*3/uL (0.0-0.4); EOS % 3.3 % (1.0-4.0); LYMPH # 1.6 10*3/uL (1.3-4.4); LYMPH % 15.2 % (27.0-41.0); MEAN CELL VOLUME 82.5 fl (80.0-94.0); MEAN CORPUSCULAR HGB 28.4 pg (27.0-31.0); MEAN CORPUSCULAR HGB CONC 34.4 g/dl (33.0-37.0); MEAN PLATELET VOLUME 9.8 fl (9.6-12.3); MONO # 0.8 10*3/uL (0.1-1.0); MONO % 8.1 % (3.0-9.0); NEUT # 7.4 10*3/uL (2.3-7.9); NEUT % 72.3 % (47.0-73.0); PLATELET COUNT AUTOMATED 197 10*3/uL (130-400); RED BLOOD COUNT 3.88 10*6/uL (4.50-5.90); RED CELL DISTRI WIDTH 13.9 % (0-14.5); WHITE BLOOD COUNT 10.3 10*3/uL (4.8-10.8)
[2017-07-04 09:23] LABS: ALBUMIN 2.4 gm/dl (3.1-4.5); CREATININE 1.54 mg/dL (0.70-1.30); MAGNESIUM 2.3 mg/dL (1.5-2.1); PHOSPHOROUS 3.7 mg/dL (2.5-4.9); POTASSIUM 4.2 mmol/L (3.5-5.1); TOTAL PROTEIN 7.3 gm/dL (6.4-8.2)
[2017-07-04] MEDS ORDERED: LISINOPRIL5 MG PO (09:32)
[2017-07-04] MEDS ORDERED: LANTUS SOL100 UNIT/1 SC (09:35)
[2017-07-04 18:29] LABS: BILIRUBIN NEGATIVE (NEGATIVE); BLOOD 2+ (NEGATIVE); CLARITY SL CLOUDY (CLEAR); COLOR YELLOW (YELLOW); GLUCOSE NEGATIVE (NEGATIVE); KETONE NEGATIVE (NEGATIVE); LEUKO ESTERASE NEGATIVE (NEGATIVE); NITRITE NEGATIVE (NEGATIVE); PH 5.5 (5.0-9.0); SPECIFIC GRAVITY 1.025 (1.005-1.030)
[2017-07-04 18:52] LABS: BACTERIA 1+; URIC ACID CRYSTALS 3+
[2017-07-04 18:53] LABS: RBC 21-30 rbc/hpf (0-2)
[2017-07-05] VITALS: BP 132/61
[2017-07-05 06:13] LABS: BASO # 0.1 10*3/uL (0.0-0.1); BASO % 0.4 % (0.0-1.0); EOS # 0.4 10*3/uL (0.0-0.4); EOS % 2.9 % (1.0-4.0); HEMATOCRIT 28.1 % (42.0-52.0); HEMOGLOBIN 9.7 g/dl (14.0-18.0); LYMPH # 2.3 10*3/uL (1.3-4.4); LYMPH % 18.8 % (27.0-41.0); MEAN CELL VOLUME 82.4 fl (80.0-94.0); MEAN CORPUSCULAR HGB 28.4 pg (27.0-31.0); MEAN CORPUSCULAR HGB CONC 34.5 g/dl (33.0-37.0); MEAN PLATELET VOLUME 9.4 fl (9.6-12.3); MONO # 1.1 10*3/uL (0.1-1.0); MONO % 9.2 % (3.0-9.0); NEUT # 8.3 10*3/uL (2.3-7.9); NEUT % 67.9 % (47.0-73.0); PLATELET COUNT AUTOMATED 236 10*3/uL (130-400); RED BLOOD COUNT 3.41 10*6/uL (4.50-5.90); RED CELL DISTRI WIDTH 13.8 % (0-14.5); WHITE BLOOD COUNT 12.2 10*3/uL (4.8-10.8)
[2017-07-05 06:44] LABS: ALBUMIN 2.2 gm/dl (3.1-4.5); CREATININE 1.77 mg/dL (0.70-1.30); POTASSIUM 4.4 mmol/L (3.5-5.1); TOTAL PROTEIN 7.1 gm/dL (6.4-8.2)
[2017-07-05 08:00] VITALS: BP 127/71
[2017-07-05 13:00] VITALS: BP 112/62
[2017-07-05 16:00] VITALS: BP 119/68
[2017-07-05 20:00] VITALS: BP 143/75
[2017-07-06] VITALS: BP 141/57
[2017-07-06 06:26] LABS: BASO % 0.3 % (0.0-1.0); EOS # 0.5 10*3/uL (0.0-0.4); EOS % 3.9 % (1.0-4.0); HEMATOCRIT 30.1 % (42.0-52.0); HEMOGLOBIN 10.1 g/dl (14.0-18.0); LYMPH # 2.6 10*3/uL (1.3-4.4); LYMPH % 22.1 % (27.0-41.0); MEAN CELL VOLUME 83.6 fl (80.0-94.0); MEAN CORPUSCULAR HGB 28.1 pg (27.0-31.0); MEAN CORPUSCULAR HGB CONC 33.6 g/dl (33.0-37.0); MEAN PLATELET VOLUME 9.4 fl (9.6-12.3); MONO # 0.9 10*3/uL (0.1-1.0); MONO % 7.7 % (3.0-9.0); NEUT # 7.5 10*3/uL (2.3-7.9); NEUT % 64.5 % (47.0-73.0); PLATELET COUNT AUTOMATED 286 10*3/uL (130-400); RED CELL DISTRI WIDTH 13.8 % (0-14.5); WHITE BLOOD COUNT 11.7 10*3/uL (4.8-10.8)
[2017-07-06 06:42] LABS: POTASSIUM 4.5 mmol/L (3.5-5.1)
[2017-07-06 06:44] LABS: CREATININE 1.53 mg/dL (0.70-1.30)
[2017-07-06 08:00] VITALS: BP 140/60
[2017-07-06 16:00] VITALS: BP 160/87
[2017-07-06 20:00] VITALS: BP 164/75
[2017-07-07] VITALS (7 sets, daily range): BP systolic 129–163; BP diastolic 60–90
[2017-07-07 06:57] LABS: BASO % 0.4 % (0.0-1.0); EOS # 0.4 10*3/uL (0.0-0.4); EOS % 3.1 % (1.0-4.0); HEMATOCRIT 29.5 % (42.0-52.0); LYMPH # 2.6 10*3/uL (1.3-4.4); LYMPH % 22.7 % (27.0-41.0); MEAN CELL VOLUME 83.6 fl (80.0-94.0); MEAN CORPUSCULAR HGB 28.3 pg (27.0-31.0); MEAN CORPUSCULAR HGB CONC 33.9 g/dl (33.0-37.0); MONO # 0.8 10*3/uL (0.1-1.0); MONO % 6.9 % (3.0-9.0); NEUT # 7.3 10*3/uL (2.3-7.9); NEUT % 65.1 % (47.0-73.0); PLATELET COUNT AUTOMATED 294 10*3/uL (130-400); RED BLOOD COUNT 3.53 10*6/uL (4.50-5.90); RED CELL DISTRI WIDTH 13.8 % (0-14.5); WHITE BLOOD COUNT 11.2 10*3/uL (4.8-10.8)
[2017-07-07 07:27] LABS: ALBUMIN 2.3 gm/dl (3.1-4.5); ALKALINE PHOSPHATASE 62 U/L (45-117); BUN 15 mg/dl (7-24); CHLORIDE 105 mmol/L (98-107); CREATININE 1.39 mg/dL (0.70-1.30); POTASSIUM 4.5 mmol/L (3.5-5.1); SGOT/AST 15 IU/L (3-35); SGPT/ALT 30 U/L (12-78); SODIUM 137 mmol/L (136-145); TOTAL PROTEIN 7.5 gm/dL (6.4-8.2)
[2017-07-07 12:07] LABS: ACID FAST SMEAR Negative (.); ACID FAST SPEC PROCESSING Tissue Grinding (.)
[2017-07-07 12:07] LABS: ACID FAST SMEAR Negative (.)
[2017-07-08] VITALS: BP 112/44; BP 154/75
[2017-07-08 06:20] LABS: BASO % 0.3 % (0.0-1.0); EOS # 0.3 10*3/uL (0.0-0.4); EOS % 2.7 % (1.0-4.0); HEMATOCRIT 29.9 % (42.0-52.0); HEMOGLOBIN 10.2 g/dl (14.0-18.0); LYMPH % 23.8 % (27.0-41.0); MEAN CELL VOLUME 83.3 fl (80.0-94.0); MEAN CORPUSCULAR HGB 28.4 pg (27.0-31.0); MEAN CORPUSCULAR HGB CONC 34.1 g/dl (33.0-37.0); MEAN PLATELET VOLUME 9.1 fl (9.6-12.3); MONO % 7.9 % (3.0-9.0); NEUT % 63.3 % (47.0-73.0); PLATELET COUNT AUTOMATED 353 10*3/uL (130-400); RED BLOOD COUNT 3.59 10*6/uL (4.50-5.90); RED CELL DISTRI WIDTH 13.6 % (0-14.5); WHITE BLOOD COUNT 12.7 10*3/uL (4.8-10.8)
[2017-07-08 06:58] LABS: BUN 16 mg/dl (7-24); CHLORIDE 104 mmol/L (98-107); CREATININE 1.41 mg/dL (0.70-1.30); PHOSPHOROUS 4.7 mg/dL (2.5-4.9); POTASSIUM 4.3 mmol/L (3.5-5.1); SODIUM 137 mmol/L (136-145)
[2017-07-08 08:00] VITALS: BP 121/64
[2017-07-08 12:00] VITALS: BP 130/64
[2017-07-08 16:00] VITALS: BP 153/75
[2017-07-08 20:00] VITALS: BP 127/67
[2017-07-09] VITALS: BP 147/75
[2017-07-09 06:43] LABS: BASO % 0.4 % (0.0-1.0); EOS # 0.3 10*3/uL (0.0-0.4); EOS % 3.1 % (1.0-4.0); HEMATOCRIT 29.7 % (42.0-52.0); HEMOGLOBIN 9.9 g/dl (14.0-18.0); LYMPH # 2.7 10*3/uL (1.3-4.4); LYMPH % 26.7 % (27.0-41.0); MEAN CELL VOLUME 83.2 fl (80.0-94.0); MEAN CORPUSCULAR HGB 27.7 pg (27.0-31.0); MEAN CORPUSCULAR HGB CONC 33.3 g/dl (33.0-37.0); MEAN PLATELET VOLUME 9.3 fl (9.6-12.3); MONO # 0.8 10*3/uL (0.1-1.0); MONO % 7.7 % (3.0-9.0); NEUT # 5.9 10*3/uL (2.3-7.9); NEUT % 59.2 % (47.0-73.0); PLATELET COUNT AUTOMATED 341 10*3/uL (130-400); RED BLOOD COUNT 3.57 10*6/uL (4.50-5.90); RED CELL DISTRI WIDTH 13.6 % (0-14.5)
[2017-07-09 06:51] LABS: BUN 21 mg/dl (7-24); CHLORIDE 102 mmol/L (98-107); CREATININE 1.45 mg/dL (0.70-1.30); POTASSIUM 4.2 mmol/L (3.5-5.1); SODIUM 136 mmol/L (136-145)
[2017-07-09 08:00] VITALS: BP 141/67
[2017-07-09 12:00] VITALS: BP 142/85
[2017-07-09 16:00] VITALS: BP 140/82
[2017-07-09 20:00] VITALS: BP 131/70
[2017-07-10] VITALS: BP 142/76
[2017-07-10 08:00] VITALS: BP 137/67
[2017-07-10] MEDS ORDERED: NORCO 5-325 TA1 EACH PO (10:05)
[2017-07-10] MEDS ORDERED: ANTIFUNGAL CREA14 GM T (10:05)
[2017-07-10] MEDS ORDERED: METOPROLOL TART50 M1 PO (10:05)
[2017-07-10] MEDS ORDERED: LEVEMIR100 UNIT/1 SC (10:05)
[2017-07-10] MEDS ORDERED: CEFTRIAXON2 GM/50 ML IV (10:06)
[2017-07-10 12:00] VITALS: BP 144/78
== END 2017-07-10 16:33 | disposition home health service (06) | DRG 853 ==
LOC: ED 00:04 → 5E 01:32 → EDHOLD 01:32 → 5E 01:39
PROVIDERS: Family Medicine; Internal Medicine; Physician Assistant; Podiatrist; ADMIT Internal Medicine
PROC: 0QBP3ZX Excision of Left Metatarsal, Percutaneous Approach, Diagnostic (ICD-10-PCS; principal; 2017-07-05)
PROC: 02HV33Z Insertion of Infusion Device into Superior Vena Cava, Percutaneous Approach (ICD-10-PCS; 2017-07-06)
PROC: 0JBR0ZZ Excision of Left Foot Subcutaneous Tissue and Fascia, Open Approach (ICD-10-PCS; 2017-07-07)
DX: A41.9 Sepsis, unspecified organism (principal); E43 Unspecified severe protein-calorie malnutrition; N17.0 Acute kidney failure with tubular necrosis; E87.1 Hypo-osmolality and hyponatremia; M86.072 Acute hematogenous osteomyelitis, left ankle and foot; E11.40 Type 2 diabetes mellitus with diabetic neuropathy, unspecified; B37.2 Candidiasis of skin and nail; Z68.41 Body mass index [BMI] 40.0-44.9, adult; L03.116 Cellulitis of left lower limb; E11.621 Type 2 diabetes mellitus with foot ulcer; E11.69 Type 2 diabetes mellitus with other specified complication; E11.65 Type 2 diabetes mellitus with hyperglycemia; N18.3 Chronic kidney disease, stage 3 (moderate); L97.529 Non-pressure chronic ulcer of other part of left foot with unspecified severity; E66.01 Morbid (severe) obesity due to excess calories; E11.628 Type 2 diabetes mellitus with other skin complications; E78.5 Hyperlipidemia, unspecified; L08.9 Local infection of the skin and subcutaneous tissue, unspecified; B96.20 Unspecified Escherichia coli [E. coli] as the cause of diseases classified elsewhere; F95.2 Tourette's disorder; E55.9 Vitamin D deficiency, unspecified; Z79.899 Other long term (current) drug therapy; Z79.4 Long term (current) use of insulin

== ENCOUNTER → 2017-07-13 | Outpatient (CLI) | payer OTHER ==
[~2017-07-13] MED LIST changes: +ANTIFUNGAL CREA14 GM T; +CEFTRIAXON2 GM/50 ML IV; +LANTUS SOL100 UNIT/1 SC; +LEVEMIR100 UNIT/1 SC; +LISINOPRIL5 MG PO; +METOPROLOL TART50 M1 PO; +NORCO 5-325 TA1 EACH PO
--- NOTE | ~2017-07-13 | WRIGHTHP ---
[place], [place] PATIENT HISTORY AND PHYSICAL EXAM NAME: CHARY COBURN [facility] #: [id number] UNIT #: [id number] ROOM: DOCTOR: ROSITA PortilloFERNIE BIRTHDATE: [birth year] DOS: 07/13/2017 CHIEF COMPLAINT: Diabetic foot ulcer. HISTORY OF PRESENT ILLNESS: This is a 46-year-old male with a history of recently diagnosed uncontrolled diabetes mellitus who was admitted back towards the end of May initially for a diabetic foot infection. He underwent surgical debridement of an abscess of the foot on 06/09/2017 with bone biopsy done as well. This was done by Dr. Omer. Initial cultures looked to be positive for Proteus, Morganella and streptococci. The patient was sent home on oral antibiotics, Keflex and was following up with Podiatry. However, subsequently readmitted just recently on 07/04/2017 for sepsis, diabetic foot ulceration, infection and osteomyelitis. He underwent 2 subsequent operative debridements of the foot, had several pockets noted during the incision and drainage. His MRI was positive for septic arthritis and osteomyelitis at the fourth metatarsophalangeal joint. Secondary osteonecrosis of the fourth metatarsal head was questioned. Diffuse soft tissue edema was noted as well. His subsequent cultures grew E. coli and he is being managed by Infectious Disease on Rocephin 2 g IV daily for 6 weeks. The wound was quite deep. He actually has more than one wound and he was started on a wound VAC and recently discharged on 07/10/2017. He was referred to the Wound [facility] to see Dr. Del Castillo, however, he was unable to make an appointment for tomorrow, so he has come in to see me today. He has also been referred for hyperbaric oxygen therapy possibly. PAST MEDICAL HISTORY: Recently diagnosed diabetes mellitus, hemoglobin A1c is over 10, healthcare-associated pneumonia, hyperlipidemia, moderate protein calorie malnutrition, acute renal failure, morbid obesity, vitamin D deficiency, history of hip surgery, essential tremor, Sjlp-Sbhwh-Qupnglm disease. SOCIAL HISTORY: Does not smoke or drink. FAMILY HISTORY: Really noncontributory at this time. ALLERGIES: No known drug allergies. CURRENT MEDICATIONS: Lipitor 20 mg p.o. daily, metoprolol 50 p.o. b.i.d., Humalog sliding scale, Levemir 48 units at bedtime, Clayton 1 tablet every 6 hours as needed, vitamin D3 1000 units daily and Rocephin 2 g IV daily for 42 days. The patient has Home Health coming in, they changed the wound VAC twice since it has been started. The patient states that he has had multiple difficulties with the seal with the wound VAC presently and basically since 2 o'clock this morning, the wound VAC was not working. He unhooked the machine and could not find where the leak was, but kept the dressing on. So, the dressing was maintained there with all the foam, but was not actually working. He reports continued pain with his foot. When I asked specifically if it is any worse, he said "it is not any worse." He says overall his swelling in his foot has improved. He denies any fevers or chills. He denies any problems with the antibiotics. He denies any chest pains or shortness of breath or nausea or [place], [place] PATIENT HISTORY AND PHYSICAL EXAM NAME: CHARY COBURN UNIT #: [id number] ROOM: DOCTOR: FERNIE BECKER M.D. BIRTHDATE: [birth year] vomiting or diarrhea. He has a tic disorder and has uncontrollable motor tics that is not new. I asked specifically if he has to use inhalers on a daily basis and he says no. He has never had a seizure disorder. He does have some claustrophobia, but states he is willing to go ahead and try HBO if insurance approves it. He offers no other specific complaints. PHYSICAL EXAMINATION: VITAL SIGNS: Temperature 99.1, pulse is 60, respirations 20, blood pressure is 90/60: GENERAL: This is an alert male in no acute distress who is pleasant and cooperative. He has multiple motor tics mostly on his face and his head notable. He is mildly obese. HEENT: Oropharynx is clear. Extraocular movements are intact. Tympanic membranes appear to have some scar tissue bilaterally noted. There does appear to be a perforation on the left tympanic membrane. I asked specifically if he had any hearing difficulties or pain with his ears or any problems with ear infections in the past and he reports no. NECK: There is no JVD. LUNGS: Clear. CARDIOVASCULAR: S1, S2 regular rate and rhythm. He is not tachycardic. ABDOMEN: Soft, morbidly obese. EXTREMITIES: He has positive pedal pulses. He has a very large open wound of the left foot noted. The plantar wound is noted to be 11.5 x 1.5 x 2.1 in depth. There is a foul smelling pungent odor noted. There is exposed tendon and moderate necrotic tissue still present. There is a wound on the left dorsum of the foot that is measuring 3.5 x 1 x 1.2 cm in depth that tracks 3.5 cm distally and there is exposed tendon as well, moderate necrotic tissue is present. There is induration and severe swelling of the left foot, but when I asked specifically if the swelling was worse or improved, the patient reports that it is actually much better than it was. A debridement was done to remove devitalized tissue from the plantar wound. It is a fibrin, slough and subcutaneous tissue was noted. There was minimal bleeding. The patient tolerated the debridement well. Forceps, scissors, and a curette was utilized. The other wound was cleansed with sterile saline and a sterile Q-tip with a brown purulent drainage that was noted. It was fairly moderate in nature. The post-debridement wounds on the plantar wound actually was 11.5 x 2 x 2 cm in depth. No debridement was done on the dorsal wound. A lot of the drainage was cleaned with a sterile Q-tip and saline. The patient tolerated the debridement well. LABORATORY DATA: Show a hemoglobin A1c of 10.1. His bone biopsy showed positive for acute osteomyelitis, most recent cultures was E. coli. His ESR is high, anywhere from the 120-135 range. CRP was 11 when he came in and it was down to 7 upon discharge. Most recent white count was 10,000. Chem-7 shows a BUN of 21, a creatinine of 1.45. Glucose of 149. Urine was positive for 2+ blood and 2+ protein. ASSESSMENT AND PLAN: Diabetic foot ulcer, Barker stage 3 with osteomyelitis, status post multiple debridements. He is on IV antibiotics. He has 2 very large deep wounds presently. He has been referred for hyperbaric oxygen [place], [place] PATIENT HISTORY AND PHYSICAL EXAM NAME: CHARY COBURN UNIT #: [id number] ROOM: DOCTOR: [facility]illo[facility] He did have arterial Dopplers, which indicates no hemodynamically significant peripheral vascular disease. Due to the foul odor noted and the fact that the wound VAC was not working and he had kept it on for some many hours without it is functioning well, I would like to hold off on the wound VAC for now until the wound looks a bit trolley cleaner. So, for now, we are going to use Santyl and Aquacel Ag ribbon, it is going to be changed every day. Home Health will be notified about this change for now and we would like him to come back on Monday to reevaluate the situation. Due to the patient's extent of his wound and the fact that he has had over 30 days of wound care, he has had bone debridements and treatment for infection, he has Barker 3 and is at high risk for amputation and should be considered a candidate for hyperbaric oxygen treatment as adjuvant therapy for limb salvage. He had an echocardiogram done, which showed normal systolic function. He had a chest x-ray done which showed cardiomegaly with mild central vascular congestion; however, that was back at the end of May. Currently, he is asymptomatic. There is no pneumothorax or pleural effusion or any type of bullous disease noted. He did have an EKG, which showed a right bundle branch block, so we will go ahead and check to see if we can get approval for HBO therapy. FERNIE BECKER MD CM:HISPHYS:PATIENT HISTORY AND PHYSICAL EXAMINATION [id number] FERNIE BECKER M.D. 07/13/171707 interface
--- NOTE | ~2017-07-13 | PR ---
[place], [place] PROGRESS NOTE NAME: CHARY COBURN UNIT #: [id number] ROOM: DOCTOR: FERNIE BECKER M.D. BIRTHDATE: [birth year] DOS: 07/13/2017 ADDENDUM I just want to mention that his blood pressure was noted to be 90/60. When he came here, he was asymptomatic from this. He stated that he told staff that he had just taken his blood pressure medication before arriving here. He did not report any feelings of dizziness or feeling ill in any way other than continued pain and discomfort in his foot that was present before and has not changed. FERNIE BECKER MD CM:PNTRANS [id number] FERNIE BECKER M.D. 07/14/17 0603 interface
== END | disposition home or self-care (01) ==
LOC: WOUNDCARE 11:58
DX: E11.621 Type 2 diabetes mellitus with foot ulcer (principal); L97.522 Non-pressure chronic ulcer of other part of left foot with fat layer exposed; E11.69 Type 2 diabetes mellitus with other specified complication; M86.072 Acute hematogenous osteomyelitis, left ankle and foot; E78.5 Hyperlipidemia, unspecified; E66.01 Morbid (severe) obesity due to excess calories

== ENCOUNTER 2017-07-18 16:18 | Emergency (ER) | payer OTHER ==
[~2017-07-18] VITALS: Ht 172.7 cm; Wt 138.3 kg
[2017-07-18 17:13] LABS: BASO # 0.1 10*3/uL (0.0-0.1); BASO % 0.7 % (0.0-1.0); EOS # 0.2 10*3/uL (0.0-0.4); EOS % 1.6 % (1.0-4.0); HEMATOCRIT 32.6 % (42.0-52.0); HEMOGLOBIN 10.8 g/dl (14.0-18.0); LYMPH # 2.1 10*3/uL (1.3-4.4); LYMPH % 21.4 % (27.0-41.0); MEAN CELL VOLUME 81.5 fl (80.0-94.0); MEAN CORPUSCULAR HGB CONC 33.1 g/dl (33.0-37.0); MEAN PLATELET VOLUME 9.3 fl (9.6-12.3); MONO # 0.8 10*3/uL (0.1-1.0); MONO % 7.7 % (3.0-9.0); NEUT # 6.7 10*3/uL (2.3-7.9); NEUT % 68.1 % (47.0-73.0); PLATELET COUNT AUTOMATED 297 10*3/uL (130-400); WHITE BLOOD COUNT 9.9 10*3/uL (4.8-10.8)
[2017-07-18 17:27] LABS: ALBUMIN 2.9 gm/dl (3.1-4.5); CREATININE 1.52 mg/dL (0.70-1.30); POTASSIUM 4.2 mmol/L (3.5-5.1); TOTAL PROTEIN 8.2 gm/dL (6.4-8.2)
== END 2017-07-18 18:39 | disposition home or self-care (01) ==
LOC: ED 16:18
PROVIDERS: Internal Medicine
DX: M79.662 Pain in left lower leg (principal); E11.22 Type 2 diabetes mellitus with diabetic chronic kidney disease; N18.3 Chronic kidney disease, stage 3 (moderate); E78.5 Hyperlipidemia, unspecified; M86.9 Osteomyelitis, unspecified; E11.40 Type 2 diabetes mellitus with diabetic neuropathy, unspecified; E66.01 Morbid (severe) obesity due to excess calories

== ENCOUNTER → 2017-07-18 | Outpatient (CLI) | payer OTHER ==
--- NOTE | ~2017-07-18 | PR ---
[place], [place] PROGRESS NOTE NAME: CHARY COBURN UNIT #: [id number] ROOM: DOCTOR: ROSITA PortilloFERNIE BIRTHDATE: [birth year] DOS: 07/18/2017 CHIEF COMPLAINT: Follow up diabetic foot ulcer. HISTORY OF PRESENT ILLNESS: A 46-year-old male with recently diagnosed diabetes, which was uncontrolled, who was seen for the first time last in the wound clinic for a very large diabetic foot ulcer with infection and osteomyelitis. He had undergone multiple debridements and drainage by Podiatry and was sent here for wound care therapy. He was discharged on 07/10/2017 with the wound VAC and IV antibiotics per Infectious Disease. His most recent cultures grew E. coli. When he presented to the clinic last , he had complained that the wound VAC was not working properly, it had a leak and he was not told or explained by home health about how to work the wound VAC and he left it on all day until he came to the wound clinic and there was a very foul smell once that was removed. There was also a moderate amount of necrotic tissue present when we saw him last week and due to this concern for continued infection, the wound VAC was held off for a couple days until I saw him later this week. So, the patient returns for followup for this wound. He states overall the foot feels the same, it is not really any worse. His is with him and feels that the foot is definitely not as swollen as it was and definitely a lot of the redness has gone down quite a bit. He has no documented fevers. I did explain to the patient that we were still trying to get him approved for hyperbaric, but we do not have approval yet. Apparently, [facility] is out of network and so that has to be sorted through before we can approve him to go into the chamber. He is complaining about home health and saying that he does not feel that they are doing an adequate job with dressing the wound and cleansing the wound. He is just not happy with the way they are providing wound care. Staff report that when they first took the dressing off, they did noticed pungent odor and once the foot was washed and the dressing was removed and cleansed and when I went into the room, I did not notice the odor as I did last week. The staff did report, however, that the Aquacel Ag ribbon that was ordered was not really packed as it should be and it was just sort of lying on top of the upper part of the wound. SOCIAL HISTORY: The patient is a former smoker, has quit 25 years ago and does not drink alcohol. OBJECTIVE: VITAL SIGNS: Temperature 98.8, pulse of 104, respirations are 20 and blood pressure is 112/74. SKIN: The wound on the left foot is measuring 9.5 x 1.5 x 1.8 in depth. Overall, it does appear slightly pattern cleaner than last week. There is an area where it still goes deep at the 12 o'clock position, it goes almost down to 2.6 cm. A debridement was done to remove the necrotic tissue, fibrin and slough as well as subcutaneous tissue. Once again, the tendon was exposed. The dorsal foot wound was also evaluated and it is measuring 3.5 x 1 x 1.5. There is moderate amount of fibrin and slough present in the base of the wound and there is still a fair amount of drainage noted. There is still the pocket that goes deep at that area around the 12 o'clock position towards the distal part of the toe and that is fairly deep as well. The distal tunnel is measuring 3 cm, I believe it was [place], [place] PROGRESS NOTE NAME: CHARY COBURN UNIT #: [id number] ROOM: DOCTOR: FERNIE BECKER M.D. BIRTHDATE: [birth year] larger last week at 3.5. This area was also debrided of fibrin, slough and subcutaneous tissue. There was moderate bleeding controlled with pressure. The patient tolerated the debridement well. Overall, the foot seems to be less swollen, there is less erythema and it is not acutely tender in general. ASSESSMENT AND PLAN: Diabetic foot ulcer, Barker stage 3 with osteomyelitis and obvious continued infection. I think the wound is pattern cleaner than it was. The foot does not appear to be as swollen as it did last week and we will go ahead and write to restart the wound VAC as planned per Podiatry. He is going to follow up with Dr. Del Castillo in the wound clinic this Monday. Also, we did explain that we are trying to get approval for hyperbaric oxygen therapy and as soon as he is approved, we will go ahead and try to get him into the chamber as soon as possible. The patient is maintained on IV antibiotics. FERNIE BECKER MD CM:KRYSTLE [id number] FERNIE BECKER M.D. 07/20/17 1259 interface
== END | disposition home or self-care (01) ==
LOC: WOUNDCARE 03:15
DX: E11.621 Type 2 diabetes mellitus with foot ulcer (principal); L97.522 Non-pressure chronic ulcer of other part of left foot with fat layer exposed; E11.69 Type 2 diabetes mellitus with other specified complication; M86.072 Acute hematogenous osteomyelitis, left ankle and foot; Z87.891 Personal history of nicotine dependence

== ENCOUNTER 2017-07-26 16:42 | Emergency (ER) | payer OTHER ==
[~2017-07-26] VITALS: Wt 140.6 kg
[2017-07-26] MEDS ORDERED: Percocet 325 MG1 TAB PO (17:17)
== END 2017-07-26 19:38 | disposition home or self-care (01) ==
LOC: ED 16:42
DX: M79.672 Pain in left foot (principal)

== ENCOUNTER → 2017-07-28 | Outpatient (CLI) | payer OTHER ==
[~2017-07-28] MED LIST changes: +Percocet 325 MG1 TAB PO
--- NOTE | ~2017-07-28 | PR ---
[place], [place] PROGRESS NOTE NAME: CHARY COBURN UNIT #: [id number] ROOM: DOCTOR: HELEN FERMIN DPM BIRTHDATE: [birth year] DOS: 07/28/2017 SUBJECTIVE: This is an established patient at [facility], but a new patient to me. He had been seen by Dr. Parada, originally seen by Dr. Omer. He then was at [facility] where another I and D of the foot was done. He comes in with a wound VAC and not been on the foot for about a day and a half because there are problems with the seal. Upon physical examination, it is noted the left plantar foot incision measures 10 cm x 1.3 cm x 0.2 cm. Some slough and debris is noted at the base of the wound. Left foot dorsal ulceration is 5 cm x 2 cm x 1.3 cm and new left foot dorsal midline wound secondary from the previous I and D measures 3 cm x 0.5 cm x 0.6 cm. These areas have slough and debris at the base of the wound. No odor, drainage or signs of active purulence or active infection noted. DP, PT pulses are unable to be palpated. There is some edema of the lower extremity consistent for multiple surgeries and probable osteomyelitis. The patient is no longer on IV antibiotics, but he is on p.o. antibiotics. He does have a rash noted in and around the areas of the incision which is most likely secondary to the Op-Site from the VAC. IMPRESSION: Diabetic grade 3 ulcerations x 3, left foot. PLAN: 1. Evaluate. 2. Debridement was performed through subcutaneous to remove devitalized tissue and debris. The patient tolerated procedure well. We will reinstate the wound VAC. We will put Puracol AG at the base of the wounds and have the patient come back in 1 week for followup. HELEN FERMIN DPM CM:PNTRANS [id number] HELEN FERMIN DPM 07/29/17 0924 interface
== END | disposition home or self-care (01) ==
LOC: WOUNDCARE 02:38
DX: E11.621 Type 2 diabetes mellitus with foot ulcer (principal); L97.522 Non-pressure chronic ulcer of other part of left foot with fat layer exposed; E11.69 Type 2 diabetes mellitus with other specified complication; M86.072 Acute hematogenous osteomyelitis, left ankle and foot

== ENCOUNTER → 2017-08-01 | Outpatient (CLI) | payer OTHER | END | disposition home or self-care (01) | LOC: RESCLI 02:03 | DX: E11.621 Type 2 diabetes mellitus with foot ulcer (principal); L97.509 Non-pressure chronic ulcer of other part of unspecified foot with unspecified severity; L08.9 Local infection of the skin and subcutaneous tissue, unspecified; E78.5 Hyperlipidemia, unspecified; G62.9 Polyneuropathy, unspecified; G25.0 Essential tremor; E66.09 Other obesity due to excess calories ==

== ENCOUNTER → 2017-08-04 | Outpatient (CLI) | payer OTHER | END | disposition home or self-care (01) | LOC: WOUNDCARE 02:09 | DX: E11.621 Type 2 diabetes mellitus with foot ulcer (principal); L97.522 Non-pressure chronic ulcer of other part of left foot with fat layer exposed; E11.69 Type 2 diabetes mellitus with other specified complication; M86.072 Acute hematogenous osteomyelitis, left ankle and foot; Z87.891 Personal history of nicotine dependence ==

== ENCOUNTER 2017-08-08 13:50 | Emergency (ER) | payer OTHER ==
[~2017-08-08] VITALS: Ht 172.7 cm; Wt 121.6 kg
[2017-08-08 15:23] LABS: BASO # 0.1 10*3/uL (0.0-0.1); BASO % 0.6 % (0.0-1.0); EOS # 0.3 10*3/uL (0.0-0.4); EOS % 3.2 % (1.0-4.0); HEMATOCRIT 37.2 % (42.0-52.0); HEMOGLOBIN 12.3 g/dl (14.0-18.0); LYMPH # 2.4 10*3/uL (1.3-4.4); LYMPH % 27.2 % (27.0-41.0); MEAN CELL VOLUME 82.5 fl (80.0-94.0); MEAN CORPUSCULAR HGB 27.3 pg (27.0-31.0); MEAN CORPUSCULAR HGB CONC 33.1 g/dl (33.0-37.0); MEAN PLATELET VOLUME 9.3 fl (9.6-12.3); MONO # 0.6 10*3/uL (0.1-1.0); MONO % 6.3 % (3.0-9.0); NEUT # 5.6 10*3/uL (2.3-7.9); NEUT % 62.3 % (47.0-73.0); PLATELET COUNT AUTOMATED 238 10*3/uL (130-400); RED BLOOD COUNT 4.51 10*6/uL (4.50-5.90); RED CELL DISTRI WIDTH 15.8 % (0-14.5); WHITE BLOOD COUNT 8.9 10*3/uL (4.8-10.8)
[2017-08-08 15:40] LABS: ALBUMIN 3.3 gm/dl (3.1-4.5); ALKALINE PHOSPHATASE 60 U/L (45-117); BUN 25 mg/dl (7-24); CHLORIDE 103 mmol/L (98-107); CREATININE 1.28 mg/dL (0.70-1.30); POTASSIUM 4.2 mmol/L (3.5-5.1); SGOT/AST 15 IU/L (3-35); SGPT/ALT 23 U/L (12-78); SODIUM 138 mmol/L (136-145); TOTAL PROTEIN 8.2 gm/dL (6.4-8.2)
[2017-08-08 15:42] LABS: TROPONIN I < 0.015 ng/ml (<0.045)
== END 2017-08-08 16:37 | disposition home or self-care (01) ==
LOC: ED 13:50
PROVIDERS: Nurse Practitioner Family
DX: S91.302A Unspecified open wound, left foot, initial encounter (principal); L08.9 Local infection of the skin and subcutaneous tissue, unspecified; E11.22 Type 2 diabetes mellitus with diabetic chronic kidney disease; N18.3 Chronic kidney disease, stage 3 (moderate); E78.5 Hyperlipidemia, unspecified; E78.00 Pure hypercholesterolemia, unspecified; E66.01 Morbid (severe) obesity due to excess calories; Z98.890 Other specified postprocedural states; Z79.899 Other long term (current) drug therapy; Z88.8 Allergy status to other drugs, medicaments and biological substances; X58.XXXA Exposure to other specified factors, initial encounter; Y93.89 Activity, other specified; Y92.89 Other specified places as the place of occurrence of the external cause; Y99.9 Unspecified external cause status

== ENCOUNTER → 2017-08-11 | Outpatient (CLI) | payer OTHER | END | disposition home or self-care (01) | LOC: WOUNDCARE 01:40 | DX: T81.89XD Other complications of procedures, not elsewhere classified, subsequent encounter (principal); E11.621 Type 2 diabetes mellitus with foot ulcer; L97.522 Non-pressure chronic ulcer of other part of left foot with fat layer exposed; E11.69 Type 2 diabetes mellitus with other specified complication; M86.072 Acute hematogenous osteomyelitis, left ankle and foot; Z87.891 Personal history of nicotine dependence; Y83.8 Other surgical procedures as the cause of abnormal reaction of the patient, or of later complication, without mention of misadventure at the time of the procedure ==

== ENCOUNTER → 2017-08-30 | Outpatient (CLI) | payer OTHER | LOC: WOUNDCARE 08-18 01:12 | DX: T81.89XD Other complications of procedures, not elsewhere classified, subsequent encounter (principal); E11.621 Type 2 diabetes mellitus with foot ulcer; L97.522 Non-pressure chronic ulcer of other part of left foot with fat layer exposed; E11.69 Type 2 diabetes mellitus with other specified complication; M86.072 Acute hematogenous osteomyelitis, left ankle and foot; Z87.891 Personal history of nicotine dependence; Y83.8 Other surgical procedures as the cause of abnormal reaction of the patient, or of later complication, without mention of misadventure at the time of the procedure ==

== ENCOUNTER 2017-11-13 09:56 | Inpatient (IN) | payer OTHER ==
[~2017-11-13] VITALS: Ht 172.7 cm; Wt 133.6 kg
--- NOTE | ~2017-11-13 | PR ---
[place], [place] PROGRESS NOTE NAME: CHARY COBURN UNIT #: [id number] ROOM: 522 DOCTOR: ULYSSES ALONSO DPM BIRTHDATE: [birth year] DOS: 11/16/2017 SUBJECTIVE: The patient was seen for followup of incision and drainage with bone biopsy of the left foot. The patient is resting comfortably without acute pain. OBJECTIVE: Wound VAC is intact with no signs of localized erythema or abscess. Capillary refill time is within normal limits to the digits. The patient's WBC is 6.2 today with bone biopsy consistent with chronic osteomyelitis. Cultures are consistent with Escherichia coli and MRSA. ASSESSMENT: Osteomyelitis, MRSA, and E. coli infection, left foot. PLAN: Recommend continue wound VAC therapy. Continue antibiotics per Infectious Disease. Apparently, the patient needs to be transferred to [facility] due to insurance reasons. The patient can follow with the physicians at [facility]. I discussed with the patient he may need further resection of bone of the fourth and possibly fifth metatarsal heads and decision will be made accordingly depending on following physician. We can help out if need be down the road, but again the patient will be transferred to [facility] for continued treatment and follow. The patient was resistant at first and wanted to sign out AMA, but after discussion with the patient due to his history of multiple infections and severe recurrent cellulitis, chronic osteomyelitis and multiple abscess surgeries discussed. The patient is still at risk for limb loss and the patient understood this and agreed to be transferred. Again, the patient further surgical intervention with possible further resection of bone if need be will be determined [facility]. ULYSSES ALONSO DPM CM:PNTRANS [id number] ULYSSES ALONSO DPM 11/16/[id number] interface
--- NOTE | ~2017-11-13 | O ---
[place], [place] OPERATIVE NOTE NAME: CHARY COBURN UNIT #: [id number] ROOM: 522 DOCTOR: CELESTE MUNOZ,TWAN Marx BIRTHDATE: [birth year] DOS: 11/14/2017 PREOPERATIVE DIAGNOSIS: Abscess left foot with possible osteomyelitis fourth metatarsal. POSTOPERATIVE DIAGNOSIS: Abscess left foot with possible osteomyelitis fourth metatarsal, pending pathology. PROCEDURE: Incision and drainage of left foot with bone biopsy, fourth left metatarsal. ESTIMATED BLOOD LOSS: 2 mL. SPECIMEN: Bone fourth flap metatarsal. PACKING: Half inch plain packing. QC ANALYST: None. ANESTHESIA: LMAC. SURGEON: Twan Alonso DPM PROCEDURE IN DETAIL: The patient was brought to operating room, placed in the operating table in supine position. Anesthesia administered per anesthesia department. Local infiltration of 9 mL of 0.5% Marcaine plain was utilized for local block. The area was prepped and draped in usual aseptic manner. Attention was directed to plantar fourth left MPJ where an ulceration was noted with abscess. All necrotic nonviable tissue was excised excisionally with a rongeur. [place] elevator was utilized to probe to the fourth left metatarsal head. A bone rongeur was utilized to resect bone for bone cultures and bone biopsy. Tissue cultures were also taken and the culture consisted of aerobic and anaerobic acid-fast and fungal cultures along with gram stain. The area was flushed with sterile saline and sterile compressive dressing consisting of half inch plain packing. A wet to dry dressing with 4x4, ABD, Kerlix and SHANTA bandage was applied. Patient tolerated the procedure and anesthesia well, left the OR with vital signs stable and neurovascular status intact. Capillary refill time is normal to all digits to left foot. I discussed with the patient preoperatively he may need resection of the fourth left metatarsal head at a later date and potential further surgical intervention. Return to unit and resume previous orders. CBC with diff, sed rate and C-reactive protein for tomorrow morning is ordered. IV antibiotics per infectious disease. The patient will be seen tomorrow for postoperative followup. The patient will be discharged back to the unit after approval by anesthesia. [place], [place] OPERATIVE NOTE NAME: CHARY COBURN UNIT #: [id number] ROOM: 522 DOCTOR: TWAN ALONSO DPM BIRTHDATE: [birth year] TWAN ALONSO DPM CM:OPRECORD:OPERATIVE NOTE [id number] TWAN ALONSO DPM 11/17/17 0706 interface
--- NOTE | ~2017-11-13 | CON ---
[place], [place] REPORT OF CONSULTATION NAME: CHARY COBURN UNIT #: [id number] ROOM: 522 DOCTOR: ULYSSES ALONSO DPM BIRTHDATE: [birth year] DOS: 11/14/2017 SUBJECTIVE: The patient was admitted yesterday with chief complaint of bleeding from an ulceration on the plantar left foot. The patient is well known to our practice, has had multiple bouts of diabetic ulcerations with infected abscess and osteomyelitis. The patient was currently seeing a [facility] in [place]. PAST MEDICAL HISTORY: Chronic kidney disease stage 3. Essential tremor, insulin-dependent diabetes, Wfdx-Mdkjr-Ooydngm disease, morbid obesity, Tourette syndrome, vitamin D deficiency. PAST SURGICAL HISTORY: Hip surgery, left foot I and D with bone biopsies and debridement. SOCIAL HISTORY: Denies alcohol, illicit drug use or smoking. FAMILY HISTORY: Father, mother alive. ALLERGIES: METOPROLOL. LOWER EXTREMITY EXAMINATION: Pedal pulses palpable, but diminished, epicritic sensations, decreased bilateral. There is an ulceration, plantar fourth MPJ is full thickness to and through subcutaneous tissue level of foul odor in apparent sinus tract, consistent with an abscess. Results of the CT exam of the left foot were consistent with possible abscess with extensive soft tissue swelling, cellulitis and edema, acute or chronic osteomyelitis of the fourth metatarsal bone as well as fifth metatarsal bone and proximal fifth digit consistent with septic arthritis. ASSESSMENT: Abscess, osteomyelitis, left foot. PLAN: Evaluation and management. The patient will be taken to surgery at noon today for incision and drainage with biopsy of bone of the left foot. Discussed the advantages, disadvantages with the patient of the surgery along with potential complications including potential transmetatarsal amputation or potential loss of limb continued wound care treatment, extended IV antibiotic treatment, etc. The patient understood. All questions answered. No guarantees were given. We will proceed with surgical intervention. [place], [place] REPORT OF CONSULTATION NAME: CHARY COBURN UNIT #: [id number] ROOM: 522 DOCTOR: ULYSSES ALONSO DPM BIRTHDATE: [birth year] ULYSSES ALONSO DPM CM:CONSTR:REPORT OF CONSULTATION [id number] 11/14/17 2331 interface
[2017-11-13 10:04] VITALS: BP 131/74
[2017-11-13 11:01] LABS: BASO # 0.1 10*3/uL (0.0-0.1); BASO % 0.5 % (0.0-1.0); EOS # 0.4 10*3/uL (0.0-0.4); HEMATOCRIT 46.7 % (42.0-52.0); HEMOGLOBIN 15.8 g/dl (14.0-18.0); LYMPH # 2.5 10*3/uL (1.3-4.4); MEAN CELL VOLUME 81.8 fl (80.0-94.0); MEAN CORPUSCULAR HGB 27.7 pg (27.0-31.0); MEAN CORPUSCULAR HGB CONC 33.8 g/dl (33.0-37.0); MONO # 0.6 10*3/uL (0.1-1.0); MONO % 6.8 % (3.0-9.0); NEUT # 5.6 10*3/uL (2.3-7.9); NEUT % 61.3 % (47.0-73.0); PLATELET COUNT AUTOMATED 204 10*3/uL (130-400); RED BLOOD COUNT 5.71 10*6/uL (4.50-5.90); RED CELL DISTRI WIDTH 14.7 % (0-14.5); WHITE BLOOD COUNT 9.1 10*3/uL (4.8-10.8)
[2017-11-13 11:10] LABS: ACT PARTIAL THROMBO TIME 25.5 SECONDS (20.8-31.5)
[2017-11-13 11:19] LABS: ALBUMIN 3.5 gm/dl (3.1-4.5); ALKALINE PHOSPHATASE 65 U/L (45-117); BUN 28 mg/dl (7-24); CHLORIDE 100 mmol/L (98-107); LIPASE 298 U/L (73-393); POTASSIUM 4.4 mmol/L (3.5-5.1); SGOT/AST 19 IU/L (3-35); SGPT/ALT 28 U/L (12-78); SODIUM 136 mmol/L (136-145); TOTAL PROTEIN 7.9 gm/dL (6.4-8.2)
[2017-11-13 11:23] LABS: TROPONIN I < 0.015 ng/ml (<0.045)
[2017-11-13] MEDS ORDERED: LISINOPRIL5 MG PO (13:16)
[2017-11-13] MEDS ORDERED: HUMALOG100 UNIT/2 SQ (13:16)
[2017-11-13] MEDS ORDERED: LANTUS SOL100 UNIT/1 SQ (13:16)
[2017-11-13 13:45] VITALS: BP 111/78
[2017-11-13 14:33] VITALS: BP 122/73
[2017-11-13 16:00] VITALS: BP 135/88
[2017-11-13 20:00] VITALS: BP 145/90
[2017-11-14] VITALS (11 sets, daily range): BP systolic 110–154; BP diastolic 77–92
[2017-11-14 06:58] LABS: BASO # 0.1 10*3/uL (0.0-0.1); BASO % 0.9 % (0.0-1.0); EOS # 0.3 10*3/uL (0.0-0.4); HEMATOCRIT 42.6 % (42.0-52.0); HEMOGLOBIN 14.7 g/dl (14.0-18.0); LYMPH # 2.1 10*3/uL (1.3-4.4); LYMPH % 25.2 % (27.0-41.0); MEAN CELL VOLUME 81.8 fl (80.0-94.0); MEAN CORPUSCULAR HGB 28.2 pg (27.0-31.0); MEAN CORPUSCULAR HGB CONC 34.5 g/dl (33.0-37.0); MONO # 0.6 10*3/uL (0.1-1.0); MONO % 6.8 % (3.0-9.0); NEUT # 5.2 10*3/uL (2.3-7.9); NEUT % 62.6 % (47.0-73.0); PLATELET COUNT AUTOMATED 186 10*3/uL (130-400); RED BLOOD COUNT 5.21 10*6/uL (4.50-5.90); RED CELL DISTRI WIDTH 14.5 % (0-14.5); WHITE BLOOD COUNT 8.2 10*3/uL (4.8-10.8)
[2017-11-14 07:34] LABS: CREATININE 1.55 mg/dL (0.70-1.30); PHOSPHOROUS 3.8 mg/dL (2.5-4.9)
[2017-11-14 07:43] LABS: THYROID STIM HORMONE (HS) 3.45 uIU/ml (0.358-4.75)
[2017-11-14 10:45] LABS: VITAMIN D, 25-HYDROXY 8.1 ng/mL (30-100)
[2017-11-15] VITALS: BP 114/61
[2017-11-15 06:43] LABS: BASO # 0.1 10*3/uL (0.0-0.1); BASO % 0.7 % (0.0-1.0); EOS # 0.3 10*3/uL (0.0-0.4); EOS % 3.8 % (1.0-4.0); HEMATOCRIT 42.5 % (42.0-52.0); HEMOGLOBIN 14.7 g/dl (14.0-18.0); LYMPH # 2.1 10*3/uL (1.3-4.4); LYMPH % 23.1 % (27.0-41.0); MEAN CELL VOLUME 82.5 fl (80.0-94.0); MEAN CORPUSCULAR HGB 28.5 pg (27.0-31.0); MEAN CORPUSCULAR HGB CONC 34.6 g/dl (33.0-37.0); MEAN PLATELET VOLUME 9.6 fl (9.6-12.3); MONO # 0.7 10*3/uL (0.1-1.0); MONO % 7.3 % (3.0-9.0); NEUT # 5.8 10*3/uL (2.3-7.9); NEUT % 64.7 % (47.0-73.0); PLATELET COUNT AUTOMATED 175 10*3/uL (130-400); RED BLOOD COUNT 5.15 10*6/uL (4.50-5.90); RED CELL DISTRI WIDTH 14.6 % (0-14.5)
[2017-11-15 07:06] LABS: CREATININE 1.54 mg/dL (0.70-1.30)
[2017-11-15 08:00] VITALS: BP 125/56
[2017-11-15 12:00] VITALS: BP 135/75
[2017-11-15 16:00] VITALS: BP 118/79
[2017-11-15 20:00] VITALS: BP 139/89
[2017-11-16] VITALS: BP 143/76
[2017-11-16 06:00] LABS: CREATININE 1.56 mg/dL (0.70-1.30); POTASSIUM 4.3 mmol/L (3.5-5.1)
[2017-11-16 06:02] LABS: VANCOMYCIN TROUGH 19.8 ug/mL (10-20)
[2017-11-16 06:07] LABS: BASO % 0.5 % (0.0-1.0); EOS # 0.2 10*3/uL (0.0-0.4); EOS % 3.9 % (1.0-4.0); HEMOGLOBIN 13.9 g/dl (14.0-18.0); LYMPH # 1.6 10*3/uL (1.3-4.4); LYMPH % 25.6 % (27.0-41.0); MEAN CELL VOLUME 82.5 fl (80.0-94.0); MEAN CORPUSCULAR HGB CONC 33.9 g/dl (33.0-37.0); MEAN PLATELET VOLUME 9.8 fl (9.6-12.3); MONO # 0.5 10*3/uL (0.1-1.0); MONO % 8.4 % (3.0-9.0); NEUT # 3.8 10*3/uL (2.3-7.9); NEUT % 61.3 % (47.0-73.0); PLATELET COUNT AUTOMATED 148 10*3/uL (130-400); RED BLOOD COUNT 4.97 10*6/uL (4.50-5.90); RED CELL DISTRI WIDTH 14.6 % (0-14.5); WHITE BLOOD COUNT 6.2 10*3/uL (4.8-10.8)
[2017-11-16 08:00] VITALS: BP 138/87
[2017-11-16 12:00] VITALS: BP 140/69
[2017-11-16 16:00] VITALS: BP 134/91
== END 2017-11-16 22:25 | disposition short-term general hospital (02) | DRG 623 ==
LOC: ED 09:56 → EDHOLD 12:51 → 5E 12:51
PROVIDERS: Emergency Medicine; Family Medicine; Internal Medicine; Internal Medicine Infectious Disease; Podiatrist; Student in an Organized Health Care Education/Training Program
PROC: 0QBP0ZX Excision of Left Metatarsal, Open Approach, Diagnostic (ICD-10-PCS; principal; 2017-11-14)
PROC: 0JBR0ZZ Excision of Left Foot Subcutaneous Tissue and Fascia, Open Approach (ICD-10-PCS; 2017-11-14)
DX: E11.69 Type 2 diabetes mellitus with other specified complication (principal); L03.116 Cellulitis of left lower limb; M86.672 Other chronic osteomyelitis, left ankle and foot; N17.0 Acute kidney failure with tubular necrosis; E11.621 Type 2 diabetes mellitus with foot ulcer; E66.01 Morbid (severe) obesity due to excess calories; E11.22 Type 2 diabetes mellitus with diabetic chronic kidney disease; E11.40 Type 2 diabetes mellitus with diabetic neuropathy, unspecified; L97.428 Non-pressure chronic ulcer of left heel and midfoot with other specified severity; L02.612 Cutaneous abscess of left foot; Z68.41 Body mass index [BMI] 40.0-44.9, adult; N18.3 Chronic kidney disease, stage 3 (moderate); E55.9 Vitamin D deficiency, unspecified; F95.2 Tourette's disorder; E11.65 Type 2 diabetes mellitus with hyperglycemia; B96.20 Unspecified Escherichia coli [E. coli] as the cause of diseases classified elsewhere; B95.62 Methicillin resistant Staphylococcus aureus infection as the cause of diseases classified elsewhere; M91.12 Juvenile osteochondrosis of head of femur [Legg-Calve-Perthes], left leg; M91.11 Juvenile osteochondrosis of head of femur [Legg-Calve-Perthes], right leg; Z88.8 Allergy status to other drugs, medicaments and biological substances; Z79.899 Other long term (current) drug therapy; Z79.4 Long term (current) use of insulin

== ENCOUNTER 2020-12-20 15:32 | Emergency (ER) | payer MEDICARE, OTHER ==
[~2020-12-20] VITALS: Ht 172.7 cm; Wt 149.7 kg
[~2020-12-20 15:32] MED LIST changes: +HUMALOG100 UNIT/2 SQ; +LANTUS SOL100 UNIT/1 SQ
[2020-12-20] MEDS ORDERED: AMOXICILLIN500 M2 PO (16:18)
[2020-12-20] MEDS ORDERED: CORTISPORIN SUS10 ML OT (16:18)
[2021-03-07] MEDS ORDERED: HYDROXYZINE HCL25 MG PO (20:11)
[2021-03-07] MEDS ORDERED: FUROSEMIDE40 MG PO (20:12)
[2021-03-07] MEDS ORDERED: CARVEDILOL25 MG PO (20:12)
[2021-03-07] MEDS ORDERED: REPAGLINIDE2 M1 PO (20:14)
[2021-03-07] MEDS ORDERED: ASPIRIN CHEWABL81 MG PO (20:15)
[2021-03-07] MEDS ORDERED: SERTRALINE HYDR50 MG PO (20:16)
[2021-03-07] MEDS ORDERED: ALLOPURINOL100 MG PO (20:16)
[2021-03-07] MEDS ORDERED: FISH OIL 1,0001 EAC3 PO (20:17)
[2021-03-07] MEDS ORDERED: LIPITOR40 MG PO (20:17)
[2021-03-07] MEDS ORDERED: VITAMIN D3250 MC2 PO (20:18)
[2021-03-10] MEDS ORDERED: LEVOFLOXACIN750 M2 PO (14:12)
== END 2020-12-20 16:27 | disposition home or self-care (01) ==
LOC: ED 15:32
DX: H66.91 Otitis media, unspecified, right ear (principal); H60.91 Unspecified otitis externa, right ear; E11.9 Type 2 diabetes mellitus without complications; E78.00 Pure hypercholesterolemia, unspecified; I10 Essential (primary) hypertension; Z88.8 Allergy status to other drugs, medicaments and biological substances; Z79.4 Long term (current) use of insulin; Z79.899 Other long term (current) drug therapy; Z98.890 Other specified postprocedural states; Z86.14 Personal history of Methicillin resistant Staphylococcus aureus infection

== ENCOUNTER 2021-04-13 16:50 | Emergency (ER) | payer MEDICARE, OTHER ==
[~2021-04-13] VITALS: Wt 145.1 kg
[~2021-04-13 16:50] MED LIST changes: +ALLOPURINOL100 MG PO; +AMOXICILLIN500 M2 PO; +ASPIRIN CHEWABL81 MG PO; +CARVEDILOL25 MG PO; +CORTISPORIN SUS10 ML OT; +FISH OIL 1,0001 EAC3 PO; +FUROSEMIDE40 MG PO; +HYDROXYZINE HCL25 MG PO; +LEVOFLOXACIN750 M2 PO; +LIPITOR40 MG PO; +REPAGLINIDE2 M1 PO; +SERTRALINE HYDR50 MG PO; +VITAMIN D3250 MC2 PO
[2021-04-13] MEDS ORDERED: NAPROSYN500 MG PO (21:39)
== END 2021-04-13 21:56 | disposition home or self-care (01) ==
LOC: ED 16:50
DX: M13.862 Other specified arthritis, left knee (principal); Z79.899 Other long term (current) drug therapy; Z79.4 Long term (current) use of insulin; Z98.890 Other specified postprocedural states

== ENCOUNTER 2021-06-24 13:21 | Inpatient (IN) | payer MEDICARE, OTHER ==
[~2021-06-24] VITALS: Ht 172.7 cm; Wt 153.4 kg
[~2021-06-24 13:21] MED LIST changes: +NAPROSYN500 MG PO
[2021-06-24 13:32] VITALS: BP 152/74
[2021-06-24 14:13] LABS: BASO % 0.2 % (0.0-1.0); EOS # 0.1 10*3/uL (0.0-0.4); EOS % 0.7 % (1.0-4.0); HEMATOCRIT 35.8 % (42.0-52.0); LYMPH # 1.4 10*3/uL (1.3-4.4); LYMPH % 11.8 % (27.0-41.0); MEAN CELL VOLUME 83.6 fl (80.0-94.0); MEAN CORPUSCULAR HGB 28.5 pg (27.0-31.0); MEAN CORPUSCULAR HGB CONC 34.1 g/dl (33.0-37.0); MEAN PLATELET VOLUME 9.2 fl (9.6-12.3); MONO # 0.6 10*3/uL (0.1-1.0); MONO % 4.7 % (3.0-9.0); NEUT # 9.9 10*3/uL (2.3-7.9); NEUT % 81.7 % (47.0-73.0); PLATELET COUNT AUTOMATED 198 10*3/uL (130-400); RED BLOOD COUNT 4.28 10*6/uL (4.50-5.90); RED CELL DISTRI WIDTH 13.8 % (0-14.5); WHITE BLOOD COUNT 12.2 10*3/uL (4.8-10.8)
[2021-06-24 14:30] LABS: ALBUMIN 2.5 gm/dl (3.1-4.5); CREATININE 2.08 mg/dL (0.70-1.30)
[2021-06-24 16:00] VITALS: BP 155/84
[2021-06-24 20:46] VITALS: BP 137/77
[2021-06-24 21:40] VITALS: BP 155/84
[2021-06-25] VITALS: BP 143/81
[2021-06-25 02:00] VITALS: BP 143/81
[2021-06-25 06:25] LABS: CREATININE 2.02 mg/dL (0.70-1.30); POTASSIUM 4.3 mmol/L (3.5-5.1)
[2021-06-25 06:39] LABS: BASO % 0.4 % (0.0-1.0); EOS # 0.3 10*3/uL (0.0-0.4); EOS % 2.5 % (1.0-4.0); HEMATOCRIT 37.5 % (42.0-52.0); LYMPH # 2.5 10*3/uL (1.3-4.4); LYMPH % 21.6 % (27.0-41.0); MEAN CELL VOLUME 85.4 fl (80.0-94.0); MEAN CORPUSCULAR HGB 28.7 pg (27.0-31.0); MEAN CORPUSCULAR HGB CONC 33.6 g/dl (33.0-37.0); MEAN PLATELET VOLUME 9.8 fl (9.6-12.3); MONO # 0.7 10*3/uL (0.1-1.0); MONO % 6.1 % (3.0-9.0); NEUT # 7.8 10*3/uL (2.3-7.9); NEUT % 68.4 % (47.0-73.0); PLATELET COUNT AUTOMATED 244 10*3/uL (130-400); RED BLOOD COUNT 4.39 10*6/uL (4.50-5.90); RED CELL DISTRI WIDTH 14.1 % (0-14.5); WHITE BLOOD COUNT 11.4 10*3/uL (4.8-10.8)
[2021-06-25 08:00] VITALS: BP 161/94
[2021-06-25 12:00] VITALS: BP 121/73
[2021-06-25 16:00] VITALS: BP 159/91
[2021-06-25 20:00] VITALS: BP 144/72
[2021-06-26] VITALS: BP 160/70
[2021-06-26 06:26] LABS: BASO # 0.1 10*3/uL (0.0-0.1); BASO % 0.7 % (0.0-1.0); EOS # 0.3 10*3/uL (0.0-0.4); EOS % 3.8 % (1.0-4.0); HEMATOCRIT 35.3 % (42.0-52.0); LYMPH # 1.7 10*3/uL (1.3-4.4); LYMPH % 24.4 % (27.0-41.0); MEAN CELL VOLUME 85.7 fl (80.0-94.0); MEAN CORPUSCULAR HGB 28.2 pg (27.0-31.0); MEAN CORPUSCULAR HGB CONC 32.9 g/dl (33.0-37.0); MEAN PLATELET VOLUME 9.5 fl (9.6-12.3); MONO # 0.5 10*3/uL (0.1-1.0); NEUT # 4.5 10*3/uL (2.3-7.9); NEUT % 63.1 % (47.0-73.0); PLATELET COUNT AUTOMATED 205 10*3/uL (130-400); RED BLOOD COUNT 4.12 10*6/uL (4.50-5.90); WHITE BLOOD COUNT 7.1 10*3/uL (4.8-10.8)
[2021-06-26 06:40] LABS: ALBUMIN 2.5 gm/dl (3.1-4.5); CREATININE 1.98 mg/dL (0.70-1.30); POTASSIUM 4.4 mmol/L (3.5-5.1)
[2021-06-26 06:42] LABS: TOTAL PROTEIN 6.8 gm/dL (6.4-8.2)
[2021-06-26 08:00] VITALS: BP 157/69
[2021-06-26 12:00] VITALS: BP 162/90
[2021-06-26 16:00] VITALS: BP 168/81
[2021-06-26 17:25] LABS: BILIRUBIN Negative (Negative); BLOOD 1+ (Negative); CLARITY Clear (Clear); COLOR Yellow (Yellow); GLUCOSE 2+ (Negative); KETONE Negative (Negative); LEUKO ESTERASE Negative (Negative); NITRITE Negative (Negative); PH 5.5 (4.5-8.0); SPECIFIC GRAVITY 1.015 (1.001-1.030); UROBILINOGEN 0.2 E.U./dl (0.0-1.0)
[2021-06-26 17:46] LABS: WBC 0-2 wbc/hpf (0-5)
[2021-06-26 17:47] LABS: BACTERIA TRACE
[2021-06-26 20:00] VITALS: BP 164/98
[2021-06-27] VITALS: BP 165/73
[2021-06-27 06:12] LABS: BASO # 0.1 10*3/uL (0.0-0.1); BASO % 0.6 % (0.0-1.0); EOS # 0.3 10*3/uL (0.0-0.4); EOS % 3.2 % (1.0-4.0); HEMATOCRIT 37.7 % (42.0-52.0); LYMPH # 2.2 10*3/uL (1.3-4.4); LYMPH % 24.9 % (27.0-41.0); MEAN CELL VOLUME 85.5 fl (80.0-94.0); MEAN CORPUSCULAR HGB 27.9 pg (27.0-31.0); MEAN CORPUSCULAR HGB CONC 32.6 g/dl (33.0-37.0); MEAN PLATELET VOLUME 9.3 fl (9.6-12.3); MONO # 0.5 10*3/uL (0.1-1.0); MONO % 5.6 % (3.0-9.0); NEUT # 5.8 10*3/uL (2.3-7.9); NEUT % 64.5 % (47.0-73.0); PLATELET COUNT AUTOMATED 235 10*3/uL (130-400); RED BLOOD COUNT 4.41 10*6/uL (4.50-5.90); RED CELL DISTRI WIDTH 13.6 % (0-14.5); WHITE BLOOD COUNT 8.9 10*3/uL (4.8-10.8)
[2021-06-27 06:14] LABS: ALBUMIN 2.5 gm/dl (3.1-4.5); CREATININE 2.07 mg/dL (0.70-1.30); POTASSIUM 4.3 mmol/L (3.5-5.1); TOTAL PROTEIN 7.2 gm/dL (6.4-8.2)
[2021-06-27 08:00] VITALS: BP 154/81
[2021-06-27] MEDS ORDERED: DOXYCYCLINE100 M3 PO (10:22)
== END 2021-06-27 11:30 | disposition home or self-care (01) | DRG 871 ==
LOC: ED 13:21 → EDHOLD 15:47 → 4E 15:47
PROVIDERS: Family Medicine; Internal Medicine; Physician Assistant; Social Worker Clinical; Student in an Organized Health Care Education/Training Program; ADMIT Internal Medicine; ATTEND Internal Medicine
DX: A41.9 Sepsis, unspecified organism (principal); E43 Unspecified severe protein-calorie malnutrition; N17.0 Acute kidney failure with tubular necrosis; L03.115 Cellulitis of right lower limb; L97.419 Non-pressure chronic ulcer of right heel and midfoot with unspecified severity; Z68.43 Body mass index [BMI] 50.0-59.9, adult; E11.621 Type 2 diabetes mellitus with foot ulcer; F95.2 Tourette's disorder; I12.9 Hypertensive chronic kidney disease with stage 1 through stage 4 chronic kidney disease, or unspecified chronic kidney disease; E11.22 Type 2 diabetes mellitus with diabetic chronic kidney disease; M91.10 Juvenile osteochondrosis of head of femur [Legg-Calve-Perthes], unspecified leg; R65.20 Severe sepsis without septic shock; D64.9 Anemia, unspecified; E83.51 Hypocalcemia; G25.0 Essential tremor; E11.40 Type 2 diabetes mellitus with diabetic neuropathy, unspecified; N18.32 Chronic kidney disease, stage 3b; J44.9 Chronic obstructive pulmonary disease, unspecified; B96.20 Unspecified Escherichia coli [E. coli] as the cause of diseases classified elsewhere; B96.89 Other specified bacterial agents as the cause of diseases classified elsewhere; E11.65 Type 2 diabetes mellitus with hyperglycemia; Z79.4 Long term (current) use of insulin; Z88.8 Allergy status to other drugs, medicaments and biological substances; Z79.899 Other long term (current) drug therapy; Z79.82 Long term (current) use of aspirin

== ENCOUNTER 2021-10-25 15:50 | Inpatient (IN) | payer MEDICARE, OTHER ==
[~2021-10-25] VITALS: Ht 172.7 cm; Wt 137.2 kg
[~2021-10-25 15:50] MED LIST changes: +DOXYCYCLINE100 M3 PO
[2021-10-25 15:56] VITALS: BP 113/64
[2021-10-25] MEDS ORDERED: AMLODIPINE BESYL5 MG PO (16:04)
[2021-10-25] MEDS ORDERED: MACROBID100 M1 PO (16:08)
[2021-10-25 17:10] LABS: BASO # 0.1 10*3/uL (0.0-0.1); BASO % 0.3 % (0.0-1.0); EOS # 0.1 10*3/uL (0.0-0.4); EOS % 0.6 % (1.0-4.0); HEMATOCRIT 25.2 % (42.0-52.0); LYMPH # 1.6 10*3/uL (1.3-4.4); MEAN CELL VOLUME 84.8 fl (80.0-94.0); MEAN CORPUSCULAR HGB 28.3 pg (27.0-31.0); MEAN CORPUSCULAR HGB CONC 33.3 g/dl (33.0-37.0); MEAN PLATELET VOLUME 9.9 fl (9.6-12.3); MONO # 0.4 10*3/uL (0.1-1.0); MONO % 2.6 % (3.0-9.0); NEUT # 13.9 10*3/uL (2.3-7.9); NEUT % 85.6 % (47.0-73.0); PLATELET COUNT AUTOMATED 382 10*3/uL (130-400); RED BLOOD COUNT 2.97 10*6/uL (4.50-5.90); RED CELL DISTRI WIDTH 14.5 % (0-14.5); WHITE BLOOD COUNT 16.3 10*3/uL (4.8-10.8)
[2021-10-25 17:30] LABS: ALBUMIN 2.5 gm/dl (3.1-4.5); CREATININE 3.4 mg/dL (0.70-1.30); POTASSIUM 5.8 mmol/L (3.5-5.1); TOTAL PROTEIN 6.7 gm/dL (6.4-8.2)
[2021-10-25 17:36] LABS: ACT PARTIAL THROMBO TIME 25.6 SECONDS (20.0-32.1)
[2021-10-25 18:57] LABS: IRON 81 ug/dL (65-175); TOTAL IRON BINDING CAPACITY 285 ug/dl (250-450)
[2021-10-25 19:00] LABS: BILIRUBIN Negative (Negative); BLOOD Trace-Lysed (Negative); CLARITY Clear (Clear); COLOR Yellow (Yellow); GLUCOSE Trace (Negative); KETONE Negative (Negative); LEUKO ESTERASE Negative (Negative); NITRITE Negative (Negative); SPECIFIC GRAVITY 1.015 (1.001-1.030); UROBILINOGEN 0.2 E.U./dl (0.0-1.0)
[2021-10-25 19:10] LABS: BACTERIA 2+; EPITHELIAL CELLS 0-2; RBC 0-2 rbc/hpf (0-2)
[2021-10-25 19:11] LABS: HYALINE CAST 0-2
[2021-10-25 19:51] VITALS: BP 108/48
[2021-10-25 23:51] VITALS: BP 98/52
[2021-10-26] VITALS (19 sets, daily range): BP systolic 86–131; BP diastolic 42–80
[2021-10-26 06:32] LABS: MEAN CELL VOLUME 87.1 fl (80.0-94.0); MEAN CORPUSCULAR HGB 29.3 pg (27.0-31.0); MEAN CORPUSCULAR HGB CONC 33.7 g/dl (33.0-37.0); MEAN PLATELET VOLUME 9.8 fl (9.6-12.3); NUCLEATED RED BLOOD CELL 0.2 % (0.0-0.0); PLATELET COUNT AUTOMATED 290 10*3/uL (130-400); RED BLOOD COUNT 2.32 10*6/uL (4.50-5.90); RED CELL DISTRI WIDTH 15.1 % (0-14.5); WHITE BLOOD COUNT 17.9 10*3/uL (4.8-10.8)
[2021-10-26 06:41] LABS: HEMATOCRIT 20.2 % (42.0-52.0)
[2021-10-26 06:42] LABS: ACT PARTIAL THROMBO TIME 25.8 SECONDS (20.0-32.1); INTERNATIONAL NORM RATIO 1.1 (2.0-3.5)
[2021-10-26 06:50] LABS: CHLORIDE 111 mmol/L (98-107); SODIUM 136 mmol/L (136-145)
[2021-10-26 07:03] LABS: ALBUMIN 2.4 gm/dl (3.1-4.5); ALKALINE PHOSPHATASE 52 U/L (45-117); CREATININE 3.99 mg/dL (0.70-1.30); FREE T4 0.76 ng/dl (0.76-1.46); SGOT/AST 7 IU/L (3-35); SGPT/ALT 21 U/L (12-78); TOTAL PROTEIN 6.3 gm/dL (6.4-8.2)
[2021-10-26 07:15] LABS: VITAMIN D, 25-HYDROXY 14.7 ng/mL (30-100)
[2021-10-26 07:19] LABS: CHOLESTEROL 89 mg/dL (<200)
[2021-10-26 07:25] LABS: TRIGLYCERIDES 374 mg/dl (<150)
[2021-10-26 07:29] LABS: BUN 124 mg/dl (7-24)
[2021-10-26 08:04] LABS: ATYPICAL LYMPHS 1 % (0-0); BASOPHILS 2 % (0-1); BURR CELLS FEW; PLATELET SUFFICIENCY NORMAL (NORMAL); POLYCHROMASIA SLIGHT; ROULEAUX SLIGHT; TOTAL CELLS COUNTED 100 #CELLS; TOXIC GRANULATION SLIGHT
[2021-10-26 14:12] LABS: HEMATOCRIT 21.3 % (42.0-52.0); MEAN CELL VOLUME 86.6 fl (80.0-94.0); MEAN CORPUSCULAR HGB 29.7 pg (27.0-31.0); MEAN CORPUSCULAR HGB CONC 34.3 g/dl (33.0-37.0); MEAN PLATELET VOLUME 9.8 fl (9.6-12.3); NUCLEATED RED BLOOD CELL 0.2 % (0.0-0.0); PLATELET COUNT AUTOMATED 282 10*3/uL (130-400); RED BLOOD COUNT 2.46 10*6/uL (4.50-5.90); WHITE BLOOD COUNT 20.7 10*3/uL (4.8-10.8)
[2021-10-26 14:34] LABS: TOTAL CELLS COUNTED 100 #CELLS
[2021-10-26 14:35] LABS: PLATELET SUFFICIENCY NORMAL (NORMAL); POLYCHROMASIA SLIGHT
[2021-10-26 14:36] LABS: BURR CELLS FEW
[2021-10-27] VITALS (22 sets, daily range): BP systolic 108–159; BP diastolic 43–82
[2021-10-27 07:23] LABS: MEAN CELL VOLUME 88.3 fl (80.0-94.0); MEAN CORPUSCULAR HGB 28.8 pg (27.0-31.0); MEAN CORPUSCULAR HGB CONC 32.6 g/dl (33.0-37.0); MEAN PLATELET VOLUME 9.8 fl (9.6-12.3); NUCLEATED RED BLOOD CELL 0.2 % (0.0-0.0); PLATELET COUNT AUTOMATED 220 10*3/uL (130-400); RED BLOOD COUNT 2.05 10*6/uL (4.50-5.90); RED CELL DISTRI WIDTH 15.5 % (0-14.5); WHITE BLOOD COUNT 14.1 10*3/uL (4.8-10.8)
[2021-10-27 07:27] LABS: HEMATOCRIT 18.1 % (42.0-52.0)
[2021-10-27 07:40] LABS: CREATININE 3.87 mg/dL (0.70-1.30)
[2021-10-27 08:32] LABS: TOTAL CELLS COUNTED 100 #CELLS
[2021-10-27 08:33] LABS: BURR CELLS MODERATE; PLATELET SUFFICIENCY NORMAL (NORMAL); POLYCHROMASIA SLIGHT; ROULEAUX SLIGHT; SCHISTOCYTES FEW
[2021-10-27 13:45] LABS: MEAN CELL VOLUME 88.8 fl (80.0-94.0); MEAN CORPUSCULAR HGB 29.6 pg (27.0-31.0); MEAN CORPUSCULAR HGB CONC 33.3 g/dl (33.0-37.0); MEAN PLATELET VOLUME 9.2 fl (9.6-12.3); NUCLEATED RED BLOOD CELL 0.1 % (0.0-0.0); PLATELET COUNT AUTOMATED 196 10*3/uL (130-400); RED BLOOD COUNT 2.23 10*6/uL (4.50-5.90); RED CELL DISTRI WIDTH 15.7 % (0-14.5); WHITE BLOOD COUNT 14.8 10*3/uL (4.8-10.8)
[2021-10-27 13:50] LABS: HEMATOCRIT 19.8 % (42.0-52.0)
[2021-10-27 14:30] LABS: PLATELET SUFFICIENCY NORMAL (NORMAL); TOTAL CELLS COUNTED 100 #CELLS
[2021-10-27 14:31] LABS: ACANTHOCYTES FEW
[2021-10-27 22:07] LABS: MEAN CELL VOLUME 90.4 fl (80.0-94.0); MEAN CORPUSCULAR HGB 29.8 pg (27.0-31.0); MEAN PLATELET VOLUME 9.6 fl (9.6-12.3); NUCLEATED RED BLOOD CELL 0.3 % (0.0-0.0); PLATELET COUNT AUTOMATED 185 10*3/uL (130-400); RED BLOOD COUNT 2.18 10*6/uL (4.50-5.90); RED CELL DISTRI WIDTH 15.3 % (0-14.5); WHITE BLOOD COUNT 14.3 10*3/uL (4.8-10.8)
[2021-10-27 22:14] LABS: HEMATOCRIT 19.7 % (42.0-52.0)
[2021-10-27 22:27] LABS: MICROCYTOSIS SLIGHT; PLATELET SUFFICIENCY NORMAL (NORMAL); TOTAL CELLS COUNTED 100 #CELLS
[2021-10-28] VITALS (11 sets, daily range): BP systolic 128–155; BP diastolic 55–81
[2021-10-28 08:37] LABS: BASO % 0.2 % (0.0-1.0); EOS # 0.3 10*3/uL (0.0-0.4); EOS % 2.1 % (1.0-4.0); HEMATOCRIT 22.7 % (42.0-52.0); LYMPH # 1.9 10*3/uL (1.3-4.4); LYMPH % 15.9 % (27.0-41.0); MEAN CELL VOLUME 87.6 fl (80.0-94.0); MEAN CORPUSCULAR HGB 30.1 pg (27.0-31.0); MEAN CORPUSCULAR HGB CONC 34.4 g/dl (33.0-37.0); MONO # 0.7 10*3/uL (0.1-1.0); MONO % 6.3 % (3.0-9.0); NEUT # 8.5 10*3/uL (2.3-7.9); NEUT % 73.1 % (47.0-73.0); NUCLEATED RED BLOOD CELL 0.1 10*3/uL (0.0-0.0); NUCLEATED RED BLOOD CELL 0.4 % (0.0-0.0); PLATELET COUNT AUTOMATED 182 10*3/uL (130-400); RED BLOOD COUNT 2.59 10*6/uL (4.50-5.90); RED CELL DISTRI WIDTH 15.1 % (0-14.5); WHITE BLOOD COUNT 11.7 10*3/uL (4.8-10.8)
[2021-10-28 09:08] LABS: ALBUMIN 2.6 gm/dl (3.1-4.5); CREATININE 3.28 mg/dL (0.70-1.30); POTASSIUM 3.9 mmol/L (3.5-5.1); TOTAL PROTEIN 6.4 gm/dL (6.4-8.2)
[2021-10-29] VITALS (8 sets, daily range): BP systolic 129–155; BP diastolic 63–99
[2021-10-29 06:30] LABS: HEMATOCRIT 23.6 % (42.0-52.0); MEAN CELL VOLUME 90.1 fl (80.0-94.0); MEAN CORPUSCULAR HGB CONC 32.2 g/dl (33.0-37.0); MEAN PLATELET VOLUME 9.5 fl (9.6-12.3); NUCLEATED RED BLOOD CELL 0.3 % (0.0-0.0); PLATELET COUNT AUTOMATED 191 10*3/uL (130-400); RED BLOOD COUNT 2.62 10*6/uL (4.50-5.90); RED CELL DISTRI WIDTH 15.3 % (0-14.5); WHITE BLOOD COUNT 8.7 10*3/uL (4.8-10.8)
[2021-10-29 06:46] LABS: CREATININE 2.96 mg/dL (0.70-1.30); POTASSIUM 3.6 mmol/L (3.5-5.1)
[2021-10-29 07:43] LABS: PLATELET SUFFICIENCY NORMAL (NORMAL); TOTAL CELLS COUNTED 100 #CELLS
[2021-10-30] VITALS: BP 149/83
[2021-10-30 06:07] LABS: HEMATOCRIT 23.9 % (42.0-52.0); MEAN CELL VOLUME 88.5 fl (80.0-94.0); MEAN CORPUSCULAR HGB CONC 33.9 g/dl (33.0-37.0); MEAN PLATELET VOLUME 9.7 fl (9.6-12.3); NUCLEATED RED BLOOD CELL 0.4 % (0.0-0.0); PLATELET COUNT AUTOMATED 213 10*3/uL (130-400); RED CELL DISTRI WIDTH 15.9 % (0-14.5); WHITE BLOOD COUNT 9.5 10*3/uL (4.8-10.8)
[2021-10-30 06:24] LABS: ALBUMIN 2.6 gm/dl (3.1-4.5); CREATININE 2.56 mg/dL (0.70-1.30); POTASSIUM 3.7 mmol/L (3.5-5.1); TOTAL PROTEIN 6.2 gm/dL (6.4-8.2)
[2021-10-30 08:00] VITALS: BP 142/71
[2021-10-30 08:07] LABS: PLATELET SUFFICIENCY NORMAL (NORMAL); POLYCHROMASIA SLIGHT; TOTAL CELLS COUNTED 100 #CELLS
[2021-10-30 11:07] LABS: ACID FAST SPEC PROCESSING Tissue Grinding (.)
[2021-10-30 12:00] VITALS: BP 148/83
[2021-10-30 16:00] VITALS: BP 143/75
[2021-10-30 20:00] VITALS: BP 143/80
[2021-10-31] VITALS: BP 159/76
[2021-10-31 06:28] LABS: HEMATOCRIT 23.3 % (42.0-52.0); MEAN CELL VOLUME 88.6 fl (80.0-94.0); MEAN CORPUSCULAR HGB 29.7 pg (27.0-31.0); MEAN CORPUSCULAR HGB CONC 33.5 g/dl (33.0-37.0); MEAN PLATELET VOLUME 9.6 fl (9.6-12.3); NUCLEATED RED BLOOD CELL 0.2 % (0.0-0.0); PLATELET COUNT AUTOMATED 191 10*3/uL (130-400); RED BLOOD COUNT 2.63 10*6/uL (4.50-5.90); RED CELL DISTRI WIDTH 15.7 % (0-14.5); WHITE BLOOD COUNT 9.7 10*3/uL (4.8-10.8)
[2021-10-31 06:33] LABS: CREATININE 2.34 mg/dL (0.70-1.30); POTASSIUM 3.8 mmol/L (3.5-5.1)
[2021-10-31 07:46] LABS: PLATELET SUFFICIENCY NORMAL (NORMAL); TOTAL CELLS COUNTED 100 #CELLS
[2021-10-31 08:00] VITALS: BP 156/68
[2021-10-31 12:00] VITALS: BP 163/75
[2021-10-31 16:00] VITALS: BP 160/76
[2021-10-31 20:00] VITALS: BP 175/79
[2021-11-01] VITALS: BP 162/86
[2021-11-01 06:04] LABS: CREATININE 2.32 mg/dL (0.70-1.30)
[2021-11-01 06:28] LABS: HEMATOCRIT 24.6 % (42.0-52.0); MEAN CELL VOLUME 89.1 fl (80.0-94.0); MEAN CORPUSCULAR HGB CONC 32.5 g/dl (33.0-37.0); MEAN PLATELET VOLUME 9.8 fl (9.6-12.3); PLATELET COUNT AUTOMATED 188 10*3/uL (130-400); RED BLOOD COUNT 2.76 10*6/uL (4.50-5.90); RED CELL DISTRI WIDTH 15.8 % (0-14.5); WHITE BLOOD COUNT 10.9 10*3/uL (4.8-10.8)
[2021-11-01 08:00] VITALS: BP 142/74
[2021-11-01 08:01] LABS: BASOPHILS 1 % (0-1); TOTAL CELLS COUNTED 100 #CELLS
[2021-11-01 08:03] LABS: POLYCHROMASIA SLIGHT
[2021-11-01 08:04] LABS: PLATELET SUFFICIENCY NORMAL (NORMAL)
[2021-11-01 12:00] VITALS: BP 167/87
[2021-11-01 16:00] VITALS: BP 145/62
[2021-11-01] MEDS ORDERED: ERTAPENEM1 GM IV (16:55)
[2021-11-01 20:00] VITALS: BP 158/83
[2021-11-02] VITALS: BP 148/60; BP 192/91
[2021-11-02 06:54] LABS: HEMATOCRIT 25.5 % (42.0-52.0); MEAN CELL VOLUME 87.9 fl (80.0-94.0); MEAN CORPUSCULAR HGB 29.3 pg (27.0-31.0); MEAN CORPUSCULAR HGB CONC 33.3 g/dl (33.0-37.0); MEAN PLATELET VOLUME 9.7 fl (9.6-12.3); PLATELET COUNT AUTOMATED 187 10*3/uL (130-400); RED CELL DISTRI WIDTH 16.1 % (0-14.5); WHITE BLOOD COUNT 12.6 10*3/uL (4.8-10.8)
[2021-11-02 07:04] LABS: ALBUMIN 2.6 gm/dl (3.1-4.5); CREATININE 2.25 mg/dL (0.70-1.30); POTASSIUM 4.2 mmol/L (3.5-5.1); TOTAL PROTEIN 6.5 gm/dL (6.4-8.2)
[2021-11-02 07:49] LABS: BASOPHILS 1 % (0-1); TOTAL CELLS COUNTED 100 #CELLS
[2021-11-02 07:50] LABS: PLATELET SUFFICIENCY NORMAL (NORMAL); POLYCHROMASIA SLIGHT; SCHISTOCYTES FEW
[2021-11-02 08:07] VITALS: BP 152/72
[2021-11-02 11:48] VITALS: BP 139/68
[2021-11-02 13:35] VITALS: BP 168/78
[2021-11-02] MEDS ORDERED: Carafate1 GM PO (13:39)
[2021-11-02] MEDS ORDERED: PROTONIX40 MG PO (13:39)
[2021-11-02 16:00] VITALS: BP 158/73
== END 2021-11-02 16:30 | disposition home health service (06) | DRG 853 ==
LOC: ED 15:50 → EDHOLD 22:32 → 4E 22:32 → EDHOLD 22:54 → 4E 10-26 00:59
PROVIDERS: Emergency Medicine; Hospitalist; Internal Medicine; Podiatrist Foot & Ankle Surgery; Student in an Organized Health Care Education/Training Program; ADMIT Family Medicine; ATTEND Family Medicine
PROC: 30233N1 Transfusion of Nonautologous Red Blood Cells into Peripheral Vein, Percutaneous Approach (ICD-10-PCS; 2021-10-26)
PROC: 0DB68ZX Excision of Stomach, Via Natural or Artificial Opening Endoscopic, Diagnostic (ICD-10-PCS; principal; 2021-10-27)
PROC: 0QBQ0ZZ Excision of Right Toe Phalanx, Open Approach (ICD-10-PCS; 2021-10-29)
PROC: 0DJD8ZZ Inspection of Lower Intestinal Tract, Via Natural or Artificial Opening Endoscopic (ICD-10-PCS; 2021-10-29)
PROC: 02HV33Z Insertion of Infusion Device into Superior Vena Cava, Percutaneous Approach (ICD-10-PCS; 2021-11-02)
DX: A41.9 Sepsis, unspecified organism (principal); N17.0 Acute kidney failure with tubular necrosis; E43 Unspecified severe protein-calorie malnutrition; K25.4 Chronic or unspecified gastric ulcer with hemorrhage; E87.1 Hypo-osmolality and hyponatremia; Z68.42 Body mass index [BMI] 45.0-49.9, adult; M86.8X7 Other osteomyelitis, ankle and foot; K62.82 Dysplasia of anus; K52.9 Noninfective gastroenteritis and colitis, unspecified; E11.65 Type 2 diabetes mellitus with hyperglycemia; M91.10 Juvenile osteochondrosis of head of femur [Legg-Calve-Perthes], unspecified leg; F95.2 Tourette's disorder; E11.22 Type 2 diabetes mellitus with diabetic chronic kidney disease; N18.30 Chronic kidney disease, stage 3 unspecified; E11.621 Type 2 diabetes mellitus with foot ulcer; R65.20 Severe sepsis without septic shock; D64.9 Anemia, unspecified; E87.5 Hyperkalemia; E87.8 Other disorders of electrolyte and fluid balance, not elsewhere classified; J44.9 Chronic obstructive pulmonary disease, unspecified; G25.0 Essential tremor; I12.9 Hypertensive chronic kidney disease with stage 1 through stage 4 chronic kidney disease, or unspecified chronic kidney disease; M17.12 Unilateral primary osteoarthritis, left knee; L97.519 Non-pressure chronic ulcer of other part of right foot with unspecified severity; E11.69 Type 2 diabetes mellitus with other specified complication; Z79.4 Long term (current) use of insulin; Z87.891 Personal history of nicotine dependence; Z90.49 Acquired absence of other specified parts of digestive tract

== ENCOUNTER 2021-12-11 10:44 | Emergency (ER) | payer MEDICARE, OTHER ==
[~2021-12-11] VITALS: Ht 172.7 cm; Wt 131.5 kg
[~2021-12-11 10:44] MED LIST changes: +AMLODIPINE BESYL5 MG PO; +Carafate1 GM PO; +ERTAPENEM1 GM IV; +MACROBID100 M1 PO; +PROTONIX40 MG PO
== END 2021-12-11 11:15 | disposition home or self-care (01) ==
LOC: ED 10:44
DX: T82.898A Other specified complication of vascular prosthetic devices, implants and grafts, initial encounter (principal); J44.9 Chronic obstructive pulmonary disease, unspecified; I12.9 Hypertensive chronic kidney disease with stage 1 through stage 4 chronic kidney disease, or unspecified chronic kidney disease; E11.22 Type 2 diabetes mellitus with diabetic chronic kidney disease; N18.30 Chronic kidney disease, stage 3 unspecified; Z90.49 Acquired absence of other specified parts of digestive tract; Z98.890 Other specified postprocedural states; Z87.891 Personal history of nicotine dependence; Z79.899 Other long term (current) drug therapy; Y92.89 Other specified places as the place of occurrence of the external cause

== ENCOUNTER → 2021-12-13 | Outpatient (CLI) | payer MEDICARE, OTHER ==
[2021-12-13 09:30] VITALS: BP 175/93
== END ==
LOC: PICC 08:30
PROVIDERS: ATTEND Emergency Medicine
DX: M86.9 Osteomyelitis, unspecified (principal); I10 Essential (primary) hypertension; E10.9 Type 1 diabetes mellitus without complications

== ENCOUNTER 2022-02-17 00:41 | Inpatient (IN) | payer OTHER ==
[~2022-02-17] VITALS: Ht 172.7 cm; Wt 145.1 kg
[2022-02-17 00:58] VITALS: BP 160/88
[2022-02-17 01:14] LABS: BASO # 0.1 10*3/uL (0.0-0.1); BASO % 0.5 % (0.0-1.0); EOS # 0.4 10*3/uL (0.0-0.4); EOS % 4.6 % (1.0-4.0); HEMATOCRIT 39.6 % (42.0-52.0); LYMPH # 1.7 10*3/uL (1.3-4.4); LYMPH % 17.5 % (27.0-41.0); MEAN CELL VOLUME 78.9 fl (80.0-94.0); MEAN CORPUSCULAR HGB 26.5 pg (27.0-31.0); MEAN CORPUSCULAR HGB CONC 33.6 g/dl (33.0-37.0); MEAN PLATELET VOLUME 9.9 fl (9.6-12.3); MONO # 0.9 10*3/uL (0.1-1.0); MONO % 9.4 % (3.0-9.0); NEUT # 6.5 10*3/uL (2.3-7.9); NEUT % 67.7 % (47.0-73.0); PLATELET COUNT AUTOMATED 185 10*3/uL (130-400); RED BLOOD COUNT 5.02 10*6/uL (4.50-5.90); RED CELL DISTRI WIDTH 15.2 % (0-14.5); WHITE BLOOD COUNT 9.6 10*3/uL (4.8-10.8)
[2022-02-17 01:25] LABS: ACT PARTIAL THROMBO TIME 30.8 SECONDS (20.0-32.1)
[2022-02-17 01:30] LABS: CREATININE 2.21 mg/dL (0.70-1.30); POTASSIUM 4.3 mmol/L (3.5-5.1)
[2022-02-17 07:00] VITALS: BP 151/74
[2022-02-17 10:00] VITALS: BP 159/123
[2022-02-17 16:00] VITALS: BP 132/62
[2022-02-17 20:00] VITALS: BP 158/88
[2022-02-18] VITALS: BP 146/80
[2022-02-18 06:34] LABS: BASO % 0.1 % (0.0-1.0); HEMATOCRIT 37.5 % (42.0-52.0); LYMPH # 1.1 10*3/uL (1.3-4.4); LYMPH % 7.6 % (27.0-41.0); MEAN CELL VOLUME 78.1 fl (80.0-94.0); MEAN CORPUSCULAR HGB 26.5 pg (27.0-31.0); MEAN CORPUSCULAR HGB CONC 33.9 g/dl (33.0-37.0); MEAN PLATELET VOLUME 10.2 fl (9.6-12.3); MONO # 0.4 10*3/uL (0.1-1.0); MONO % 2.9 % (3.0-9.0); NEUT % 88.8 % (47.0-73.0); PLATELET COUNT AUTOMATED 214 10*3/uL (130-400); RED CELL DISTRI WIDTH 14.8 % (0-14.5); WHITE BLOOD COUNT 14.6 10*3/uL (4.8-10.8)
[2022-02-18 06:54] LABS: CREATININE 2.27 mg/dL (0.70-1.30); POTASSIUM 4.7 mmol/L (3.5-5.1); TOTAL PROTEIN 6.7 gm/dL (6.4-8.2)
[2022-02-18 08:00] VITALS: BP 134/72
[2022-02-18] MEDS ORDERED: PREDNISONE10 MG PO (10:45)
[2022-02-18] MEDS ORDERED: VIBRAMYCIN HYC100 MG PO (10:45)
[2022-02-18] MEDS ORDERED: Ipratropium Brom3 ML INH (10:46)
== END 2022-02-18 14:00 | disposition home or self-care (01) | DRG 191 ==
LOC: ED 00:41 → EDHOLD 02:59 → 4E 02:59 → EDHOLD 03:45 → 4E 10:46
PROVIDERS: Emergency Medicine; Internal Medicine; ADMIT Family Medicine; ATTEND Family Medicine
DX: J44.1 Chronic obstructive pulmonary disease with (acute) exacerbation (principal); E44.0 Moderate protein-calorie malnutrition; Z68.42 Body mass index [BMI] 45.0-49.9, adult; N18.4 Chronic kidney disease, stage 4 (severe); F95.2 Tourette's disorder; J01.10 Acute frontal sinusitis, unspecified; M17.10 Unilateral primary osteoarthritis, unspecified knee; I12.9 Hypertensive chronic kidney disease with stage 1 through stage 4 chronic kidney disease, or unspecified chronic kidney disease; N18.32 Chronic kidney disease, stage 3b; Z20.822 Contact with and (suspected) exposure to COVID-19; E66.01 Morbid (severe) obesity due to excess calories; D50.9 Iron deficiency anemia, unspecified; G25.0 Essential tremor; E55.9 Vitamin D deficiency, unspecified; E11.65 Type 2 diabetes mellitus with hyperglycemia; D64.9 Anemia, unspecified; Z90.49 Acquired absence of other specified parts of digestive tract; Z87.891 Personal history of nicotine dependence; Z79.4 Long term (current) use of insulin; Z79.899 Other long term (current) drug therapy

== ENCOUNTER 2022-04-30 19:32 | Emergency (ER) | payer OTHER ==
[~2022-04-30] VITALS: Ht 172.7 cm; Wt 154.2 kg
[~2022-04-30 19:32] MED LIST changes: +Ipratropium Brom3 ML INH; +PREDNISONE10 MG PO; +VIBRAMYCIN HYC100 MG PO
[2022-04-30 20:05] LABS: BASO # 0.1 10*3/uL (0.0-0.1); BASO % 0.3 % (0.0-1.0); EOS # 0.1 10*3/uL (0.0-0.4); EOS % 0.7 % (1.0-4.0); HEMATOCRIT 40.1 % (42.0-52.0); LYMPH # 0.8 10*3/uL (1.3-4.4); MEAN CELL VOLUME 79.9 fl (80.0-94.0); MEAN CORPUSCULAR HGB 27.3 pg (27.0-31.0); MEAN CORPUSCULAR HGB CONC 34.2 g/dl (33.0-37.0); MEAN PLATELET VOLUME 9.6 fl (9.6-12.3); MONO % 5.4 % (3.0-9.0); NEUT # 16.7 10*3/uL (2.3-7.9); NEUT % 89.1 % (47.0-73.0); PLATELET COUNT AUTOMATED 243 10*3/uL (130-400); RED BLOOD COUNT 5.02 10*6/uL (4.50-5.90); RED CELL DISTRI WIDTH 15.2 % (0-14.5); WHITE BLOOD COUNT 18.8 10*3/uL (4.8-10.8)
[2022-04-30 20:19] LABS: CREATININE 2.69 mg/dL (0.70-1.30); POTASSIUM 4.5 mmol/L (3.5-5.1); TOTAL PROTEIN 7.5 gm/dL (6.4-8.2)
== END 2022-05-01 00:19 | disposition home or self-care (01) ==
LOC: ED 19:32
PROVIDERS: Internal Medicine
DX: L97.519 Non-pressure chronic ulcer of other part of right foot with unspecified severity (principal); N17.9 Acute kidney failure, unspecified; A41.9 Sepsis, unspecified organism; E44.0 Moderate protein-calorie malnutrition; E11.65 Type 2 diabetes mellitus with hyperglycemia; I10 Essential (primary) hypertension; J44.9 Chronic obstructive pulmonary disease, unspecified; Z87.891 Personal history of nicotine dependence; Z79.899 Other long term (current) drug therapy

== ENCOUNTER → 2022-05-09 | Outpatient (CLI) | payer OTHER | END | disposition home or self-care (01) | LOC: WOUNDCARE 02:49 | PROVIDERS: ATTEND Podiatrist Foot & Ankle Surgery | DX: E11.621 Type 2 diabetes mellitus with foot ulcer (principal); L97.512 Non-pressure chronic ulcer of other part of right foot with fat layer exposed; R60.9 Edema, unspecified; E11.622 Type 2 diabetes mellitus with other skin ulcer; L97.212 Non-pressure chronic ulcer of right calf with fat layer exposed; E11.22 Type 2 diabetes mellitus with diabetic chronic kidney disease; I12.9 Hypertensive chronic kidney disease with stage 1 through stage 4 chronic kidney disease, or unspecified chronic kidney disease; N18.9 Chronic kidney disease, unspecified; J44.9 Chronic obstructive pulmonary disease, unspecified; Z90.49 Acquired absence of other specified parts of digestive tract; Z79.4 Long term (current) use of insulin; Z79.899 Other long term (current) drug therapy; Z89.422 Acquired absence of other left toe(s) ==

== ENCOUNTER 2022-05-29 07:43 | Emergency (ER) | payer OTHER ==
[~2022-05-29] VITALS: Ht 172.7 cm; Wt 154.2 kg
[2022-05-29 08:30] LABS: BASO # 0.1 10*3/uL (0.0-0.1); BASO % 0.5 % (0.0-1.0); EOS # 0.4 10*3/uL (0.0-0.4); EOS % 3.4 % (1.0-4.0); LYMPH # 1.7 10*3/uL (1.3-4.4); LYMPH % 15.8 % (27.0-41.0); MEAN CELL VOLUME 83.5 fl (80.0-94.0); MEAN CORPUSCULAR HGB 27.9 pg (27.0-31.0); MEAN CORPUSCULAR HGB CONC 33.4 g/dl (33.0-37.0); MEAN PLATELET VOLUME 9.8 fl (9.6-12.3); MONO # 0.7 10*3/uL (0.1-1.0); MONO % 6.6 % (3.0-9.0); NEUT # 7.7 10*3/uL (2.3-7.9); NEUT % 73.1 % (47.0-73.0); PLATELET COUNT AUTOMATED 186 10*3/uL (130-400); RED BLOOD COUNT 4.55 10*6/uL (4.50-5.90); RED CELL DISTRI WIDTH 15.4 % (0-14.5); WHITE BLOOD COUNT 10.6 10*3/uL (4.8-10.8)
[2022-05-29 08:46] LABS: CREATININE 2.35 mg/dL (0.70-1.30); POTASSIUM 4.3 mmol/L (3.5-5.1); TOTAL PROTEIN 6.6 gm/dL (6.4-8.2)
[2022-05-29] MEDS ORDERED: VIBRAMYCIN100 MG PO (11:32)
== END 2022-05-29 11:47 | disposition home or self-care (01) ==
LOC: ED 07:43
PROVIDERS: Emergency Medicine
DX: E08.621 Diabetes mellitus due to underlying condition with foot ulcer (principal); L97.412 Non-pressure chronic ulcer of right heel and midfoot with fat layer exposed; J44.9 Chronic obstructive pulmonary disease, unspecified; E66.9 Obesity, unspecified; I12.9 Hypertensive chronic kidney disease with stage 1 through stage 4 chronic kidney disease, or unspecified chronic kidney disease; E11.22 Type 2 diabetes mellitus with diabetic chronic kidney disease; N18.30 Chronic kidney disease, stage 3 unspecified; Z79.899 Other long term (current) drug therapy; Z90.49 Acquired absence of other specified parts of digestive tract; Z98.890 Other specified postprocedural states; Z87.891 Personal history of nicotine dependence

== ENCOUNTER 2022-06-07 10:34 | Inpatient (IN) | payer OTHER ==
[~2022-06-07] VITALS: Ht 172.7 cm; Wt 154.2 kg
[~2022-06-07 10:34] MED LIST changes: +VIBRAMYCIN100 MG PO
[2022-06-07 10:47] VITALS: BP 146/74
[2022-06-07 11:27] LABS: BASO # 0.1 10*3/uL (0.0-0.1); BASO % 0.7 % (0.0-1.0); EOS # 0.4 10*3/uL (0.0-0.4); HEMATOCRIT 40.1 % (42.0-52.0); LYMPH % 20.5 % (27.0-41.0); MEAN CELL VOLUME 85.1 fl (80.0-94.0); MEAN CORPUSCULAR HGB 27.6 pg (27.0-31.0); MEAN CORPUSCULAR HGB CONC 32.4 g/dl (33.0-37.0); MEAN PLATELET VOLUME 10.1 fl (9.6-12.3); MONO # 0.6 10*3/uL (0.1-1.0); MONO % 5.7 % (3.0-9.0); NEUT # 6.5 10*3/uL (2.3-7.9); NEUT % 67.7 % (47.0-73.0); PLATELET COUNT AUTOMATED 211 10*3/uL (130-400); RED BLOOD COUNT 4.71 10*6/uL (4.50-5.90); RED CELL DISTRI WIDTH 15.4 % (0-14.5); WHITE BLOOD COUNT 9.6 10*3/uL (4.8-10.8)
[2022-06-07 11:30] VITALS: BP 149/78
[2022-06-07 11:43] LABS: CREATININE 2.37 mg/dL (0.70-1.30); POTASSIUM 4.5 mmol/L (3.5-5.1)
[2022-06-07 13:50] VITALS: BP 140/92
[2022-06-07 16:00] VITALS: BP 177/87
[2022-06-07 20:00] VITALS: BP 167/88
[2022-06-08] VITALS: BP 155/80
[2022-06-08 06:01] LABS: CREATININE 2.24 mg/dL (0.70-1.30); FREE T4 0.9 ng/dl (0.76-1.46); POTASSIUM 4.2 mmol/L (3.5-5.1); TOTAL PROTEIN 6.7 gm/dL (6.4-8.2)
[2022-06-08 06:06] LABS: THYROID STIM HORMONE (HS) 3.74 uIU/ml (0.358-4.75)
[2022-06-08 06:14] LABS: BASO # 0.1 10*3/uL (0.0-0.1); BASO % 0.6 % (0.0-1.0); EOS # 0.4 10*3/uL (0.0-0.4); EOS % 4.3 % (1.0-4.0); HEMATOCRIT 37.8 % (42.0-52.0); LYMPH # 2.4 10*3/uL (1.3-4.4); LYMPH % 23.7 % (27.0-41.0); MEAN CELL VOLUME 83.8 fl (80.0-94.0); MEAN CORPUSCULAR HGB 27.5 pg (27.0-31.0); MEAN CORPUSCULAR HGB CONC 32.8 g/dl (33.0-37.0); MEAN PLATELET VOLUME 10.2 fl (9.6-12.3); MONO # 0.6 10*3/uL (0.1-1.0); MONO % 6.1 % (3.0-9.0); NEUT # 6.5 10*3/uL (2.3-7.9); NEUT % 64.5 % (47.0-73.0); PLATELET COUNT AUTOMATED 201 10*3/uL (130-400); RED BLOOD COUNT 4.51 10*6/uL (4.50-5.90); RED CELL DISTRI WIDTH 15.1 % (0-14.5); WHITE BLOOD COUNT 10.1 10*3/uL (4.8-10.8)
[2022-06-08 08:00] VITALS: BP 172/94
[2022-06-08 12:00] VITALS: BP 158/94
[2022-06-08 16:00] VITALS: BP 168/82
[2022-06-08 20:00] VITALS: BP 166/82
[2022-06-09] VITALS: BP 155/69
[2022-06-09 05:58] LABS: CREATININE 2.28 mg/dL (0.70-1.30); POTASSIUM 4.4 mmol/L (3.5-5.1)
[2022-06-09 06:23] LABS: BASO # 0.1 10*3/uL (0.0-0.1); BASO % 0.8 % (0.0-1.0); EOS # 0.4 10*3/uL (0.0-0.4); EOS % 4.5 % (1.0-4.0); LYMPH # 1.8 10*3/uL (1.3-4.4); MEAN CELL VOLUME 83.7 fl (80.0-94.0); MEAN CORPUSCULAR HGB 27.8 pg (27.0-31.0); MEAN CORPUSCULAR HGB CONC 33.2 g/dl (33.0-37.0); MEAN PLATELET VOLUME 10.5 fl (9.6-12.3); MONO # 0.6 10*3/uL (0.1-1.0); MONO % 6.4 % (3.0-9.0); NEUT # 6.8 10*3/uL (2.3-7.9); NEUT % 69.3 % (47.0-73.0); PLATELET COUNT AUTOMATED 201 10*3/uL (130-400); RED BLOOD COUNT 4.42 10*6/uL (4.50-5.90); RED CELL DISTRI WIDTH 14.9 % (0-14.5); WHITE BLOOD COUNT 9.8 10*3/uL (4.8-10.8)
[2022-06-09 08:00] VITALS: BP 178/83
[2022-06-09] MEDS ORDERED: AMOXICILLIN500 M3 PO (08:43)
[2022-06-09] MEDS ORDERED: LEVOFLOXACIN750 M2 PO (08:43)
[2022-06-09] MEDS ORDERED: APRESOLINE25 MG PO (11:59)
[2022-06-09 12:00] VITALS: BP 162/77
== END 2022-06-09 12:37 | disposition home or self-care (01) | DRG 638 ==
LOC: ED 10:34 → 4E 12:00 → EDHOLD 12:00 → 4E 12:47
PROVIDERS: Emergency Medicine; Student in an Organized Health Care Education/Training Program; ADMIT Internal Medicine; ATTEND Internal Medicine
DX: E11.621 Type 2 diabetes mellitus with foot ulcer (principal); E44.0 Moderate protein-calorie malnutrition; M86.8X7 Other osteomyelitis, ankle and foot; L03.115 Cellulitis of right lower limb; Z68.43 Body mass index [BMI] 50.0-59.9, adult; E11.69 Type 2 diabetes mellitus with other specified complication; M91.10 Juvenile osteochondrosis of head of femur [Legg-Calve-Perthes], unspecified leg; N18.30 Chronic kidney disease, stage 3 unspecified; E11.40 Type 2 diabetes mellitus with diabetic neuropathy, unspecified; M17.10 Unilateral primary osteoarthritis, unspecified knee; M17.12 Unilateral primary osteoarthritis, left knee; D64.9 Anemia, unspecified; J41.0 Simple chronic bronchitis; E11.65 Type 2 diabetes mellitus with hyperglycemia; G25.0 Essential tremor; F95.2 Tourette's disorder; I12.9 Hypertensive chronic kidney disease with stage 1 through stage 4 chronic kidney disease, or unspecified chronic kidney disease; L97.519 Non-pressure chronic ulcer of other part of right foot with unspecified severity; E11.22 Type 2 diabetes mellitus with diabetic chronic kidney disease; E66.01 Morbid (severe) obesity due to excess calories; M91.11 Juvenile osteochondrosis of head of femur [Legg-Calve-Perthes], right leg; B96.1 Klebsiella pneumoniae [K. pneumoniae] as the cause of diseases classified elsewhere; B95.4 Other streptococcus as the cause of diseases classified elsewhere; Z79.4 Long term (current) use of insulin; Z90.49 Acquired absence of other specified parts of digestive tract

== ENCOUNTER 2022-07-12 11:56 | Inpatient (IN) | payer OTHER ==
[~2022-07-12] VITALS: Ht 172.7 cm; Wt 145.1 kg
[~2022-07-12 11:56] MED LIST changes: +AMOXICILLIN500 M3 PO; +APRESOLINE25 MG PO
[2022-07-12 12:25] VITALS: BP 192/112
[2022-07-12 12:29] LABS: BASO % 0.3 % (0.0-1.0); EOS # 0.4 10*3/uL (0.0-0.4); EOS % 3.5 % (1.0-4.0); HEMATOCRIT 39.7 % (42.0-52.0); LYMPH # 1.6 10*3/uL (1.3-4.4); LYMPH % 13.5 % (27.0-41.0); MEAN CELL VOLUME 86.9 fl (80.0-94.0); MEAN CORPUSCULAR HGB 28.9 pg (27.0-31.0); MEAN CORPUSCULAR HGB CONC 33.2 g/dl (33.0-37.0); MONO # 0.7 10*3/uL (0.1-1.0); MONO % 5.7 % (3.0-9.0); NEUT # 9.1 10*3/uL (2.3-7.9); NEUT % 76.4 % (47.0-73.0); PLATELET COUNT AUTOMATED 165 10*3/uL (130-400); RED BLOOD COUNT 4.57 10*6/uL (4.50-5.90); RED CELL DISTRI WIDTH 15.3 % (0-14.5)
[2022-07-12 12:40] LABS: ACT PARTIAL THROMBO TIME 29.2 SECONDS (20.0-32.1)
[2022-07-12 12:46] LABS: CREATININE 2.33 mg/dL (0.70-1.30); POTASSIUM 4.3 mmol/L (3.5-5.1); TOTAL PROTEIN 6.8 gm/dL (6.4-8.2)
[2022-07-12 13:28] VITALS: BP 152/73
[2022-07-12 14:41] VITALS: BP 135/65
[2022-07-12 16:06] LABS: ABG BASE EXCESS -8.5 mmol/L (-2.0-2.0); ARTERIAL BLOOD GAS PH 7.31 (7.35-7.45); ARTERIAL BLOOD GAS PO2 85.1 (80-90)
[2022-07-12 19:45] VITALS: BP 176/89
[2022-07-12 20:23] LABS: BILIRUBIN Negative (Negative); BLOOD 1+ (Negative); CLARITY Clear (Clear); COLOR Yellow (Yellow); GLUCOSE 2+ (Negative); KETONE Negative (Negative); LEUKO ESTERASE Negative (Negative); NITRITE Negative (Negative); UROBILINOGEN 0.2 E.U./dl (0.0-1.0)
[2022-07-12 20:32] LABS: MUCOUS 1+; WBC 0-2 wbc/hpf (0-5)
[2022-07-12] MEDS ORDERED: AMLODIPINE BESY10 MG PO (21:13)
[2022-07-12] MEDS ORDERED: ASPIRIN ADULT L81 M2 PO (21:14)
[2022-07-12] MEDS ORDERED: APRESOLINE25 MG PO (21:14)
[2022-07-12] MEDS ORDERED: OMEPRAZOLE40 MG PO (21:15)
[2022-07-12] MEDS ORDERED: INSULIN GL100 UNIT/3 SQ (21:15)
[2022-07-13] VITALS: BP 161/72
[2022-07-13 06:07] LABS: CREATININE 2.15 mg/dL (0.70-1.30); POTASSIUM 4.4 mmol/L (3.5-5.1); TOTAL PROTEIN 6.4 gm/dL (6.4-8.2)
[2022-07-13 06:30] LABS: HEMATOCRIT 37.5 % (42.0-52.0); MEAN CELL VOLUME 84.5 fl (80.0-94.0); MEAN CORPUSCULAR HGB 28.4 pg (27.0-31.0); MEAN CORPUSCULAR HGB CONC 33.6 g/dl (33.0-37.0); MEAN PLATELET VOLUME 10.7 fl (9.6-12.3); PLATELET COUNT AUTOMATED 190 10*3/uL (130-400); RED BLOOD COUNT 4.44 10*6/uL (4.50-5.90); RED CELL DISTRI WIDTH 14.6 % (0-14.5); WHITE BLOOD COUNT 11.4 10*3/uL (4.8-10.8)
[2022-07-13 06:46] LABS: MANUAL DIFF REFLEX YES
[2022-07-13 07:12] LABS: BURR CELLS FEW; PLATELET SUFFICIENCY NORMAL (NORMAL); TOTAL CELLS COUNTED 100 #CELLS; TOXIC GRANULATION SLIGHT
[2022-07-13 07:13] LABS: OVALOCYTES FEW
[2022-07-13 08:00] VITALS: BP 154/77
[2022-07-13 12:00] VITALS: BP 144/64
[2022-07-13 13:01] LABS: ARTERIAL BLOOD GAS PH 7.312 (7.35-7.45); ARTERIAL BLOOD GAS PO2 83.2 (80-90)
[2022-07-13 13:02] LABS: ABG BASE EXCESS -8.2 mmol/L (-2.0-2.0)
[2022-07-13 16:00] VITALS: BP 139/75
[2022-07-13 20:00] VITALS: BP 168/77
[2022-07-14] VITALS: BP 160/82
[2022-07-14 08:00] VITALS: BP 142/65
[2022-07-14 12:00] VITALS: BP 140/74
[2022-07-14 16:00] VITALS: BP 153/74
[2022-07-14 20:00] VITALS: BP 138/84
[2022-07-15] VITALS: BP 152/78; BP 152/8
[2022-07-15 08:00] VITALS: BP 127/77
[2022-07-15] MEDS ORDERED: MUCINEX ER600 MG PO (11:33)
[2022-07-15] MEDS ORDERED: PREDNISONE10 MG PO (11:33)
[2022-07-15] MEDS ORDERED: VIBRA-TAB100 MG PO (11:33)
[2022-07-15] MEDS ORDERED: SPIRIVA18 MCG PO (11:42)
== END 2022-07-15 13:20 | disposition home health service (06) | DRG 871 ==
LOC: ED 11:56 → EDHOLD 13:24 → 4E 13:24
PROVIDERS: Emergency Medicine; Internal Medicine Critical Care Medicine; Registered Nurse; ADMIT Internal Medicine; ATTEND Internal Medicine
DX: A41.9 Sepsis, unspecified organism (principal); J15.6 Pneumonia due to other Gram-negative bacteria; J96.01 Acute respiratory failure with hypoxia; N17.0 Acute kidney failure with tubular necrosis; Z68.42 Body mass index [BMI] 45.0-49.9, adult; Z20.822 Contact with and (suspected) exposure to COVID-19; R65.20 Severe sepsis without septic shock; E11.621 Type 2 diabetes mellitus with foot ulcer; L97.509 Non-pressure chronic ulcer of other part of unspecified foot with unspecified severity; G25.0 Essential tremor; E66.01 Morbid (severe) obesity due to excess calories; G47.33 Obstructive sleep apnea (adult) (pediatric); N18.30 Chronic kidney disease, stage 3 unspecified; E11.40 Type 2 diabetes mellitus with diabetic neuropathy, unspecified; E11.22 Type 2 diabetes mellitus with diabetic chronic kidney disease; E11.65 Type 2 diabetes mellitus with hyperglycemia; Z90.49 Acquired absence of other specified parts of digestive tract; Z87.891 Personal history of nicotine dependence; Z79.4 Long term (current) use of insulin

== ENCOUNTER 2022-07-30 21:09 | Emergency (ER) | payer OTHER ==
[~2022-07-30 21:09] MED LIST changes: +AMLODIPINE BESY10 MG PO; +ASPIRIN ADULT L81 M2 PO; +INSULIN GL100 UNIT/3 SQ; +OMEPRAZOLE40 MG PO; +SPIRIVA18 MCG PO; +VIBRA-TAB100 MG PO
[2022-07-30] MEDS ORDERED: CEPHALEXIN500 M1 PO (21:52)
== END 2022-07-30 23:00 | disposition home or self-care (01) ==
LOC: ED 21:09
DX: S91.311A Laceration without foreign body, right foot, initial encounter (principal); Z87.891 Personal history of nicotine dependence; Z90.49 Acquired absence of other specified parts of digestive tract; Z98.890 Other specified postprocedural states; Z79.899 Other long term (current) drug therapy; Z79.82 Long term (current) use of aspirin; W22.8XXA Striking against or struck by other objects, initial encounter; Y93.89 Activity, other specified; Y92.89 Other specified places as the place of occurrence of the external cause; Y99.8 Other external cause status

== ENCOUNTER 2022-09-20 15:05 | Emergency (ER) | payer OTHER, MEDICAID ==
[~2022-09-20] VITALS: Ht 172.7 cm; Wt 145.1 kg
[~2022-09-20 15:05] MED LIST changes: +CEPHALEXIN500 M1 PO; +PANTOPRAZOLE SO40 MG PO
[2022-09-20 16:31] LABS: BASO # 0.1 10*3/uL (0.0-0.1); BASO % 0.6 % (0.0-1.0); EOS # 0.4 10*3/uL (0.0-0.4); EOS % 4.5 % (1.0-4.0); HEMATOCRIT 36.3 % (42.0-52.0); LYMPH # 1.1 10*3/uL (1.3-4.4); LYMPH % 12.6 % (27.0-41.0); MEAN CELL VOLUME 85.4 fl (80.0-94.0); MEAN CORPUSCULAR HGB 28.5 pg (27.0-31.0); MEAN CORPUSCULAR HGB CONC 33.3 g/dl (33.0-37.0); MEAN PLATELET VOLUME 9.8 fl (9.6-12.3); MONO # 0.4 10*3/uL (0.1-1.0); MONO % 4.8 % (3.0-9.0); NEUT # 6.7 10*3/uL (2.3-7.9); NEUT % 77.5 % (47.0-73.0); PLATELET COUNT AUTOMATED 199 10*3/uL (130-400); RED BLOOD COUNT 4.25 10*6/uL (4.50-5.90); RED CELL DISTRI WIDTH 15.1 % (0-14.5); WHITE BLOOD COUNT 8.7 10*3/uL (4.8-10.8)
[2022-09-20 16:47] LABS: CREATININE 2.5 mg/dL (0.70-1.30); POTASSIUM 4.3 mmol/L (3.5-5.1); TOTAL PROTEIN 6.5 gm/dL (6.4-8.2)
[2022-09-20 16:52] LABS: ACT PARTIAL THROMBO TIME 29.3 SECONDS (20.0-32.1)
[2022-09-20] MEDS ORDERED: ZITHROMAX250 MG PO (17:48)
[2022-09-20] MEDS ORDERED: PREDNISONE50 MG PO (17:48)
== END 2022-09-20 18:15 | disposition home or self-care (01) ==
LOC: ED 15:05
PROVIDERS: Emergency Medicine
DX: J44.1 Chronic obstructive pulmonary disease with (acute) exacerbation (principal); Z79.899 Other long term (current) drug therapy; Z79.82 Long term (current) use of aspirin; Z79.4 Long term (current) use of insulin; Z90.49 Acquired absence of other specified parts of digestive tract; Z98.890 Other specified postprocedural states; Z87.891 Personal history of nicotine dependence

== ENCOUNTER 2022-09-26 16:52 | Inpatient (IN) | payer OTHER, MEDICAID ==
[~2022-09-26] VITALS: Ht 172.7 cm; Wt 160.7 kg
[~2022-09-26 16:52] MED LIST changes: -INSULIN GL100 UNIT/3 SQ; +INSULIN GL100 UNIT/5 SC; +PREDNISONE50 MG PO; +ZITHROMAX250 MG PO
[2022-09-26 16:59] VITALS: BP 107/87
[2022-09-26 17:53] LABS: BASO % 0.3 % (0.0-1.0); EOS # 0.2 10*3/uL (0.0-0.4); EOS % 1.5 % (1.0-4.0); HEMATOCRIT 37.9 % (42.0-52.0); LYMPH # 1.1 10*3/uL (1.3-4.4); MEAN CELL VOLUME 87.3 fl (80.0-94.0); MEAN CORPUSCULAR HGB CONC 33.2 g/dl (33.0-37.0); MEAN PLATELET VOLUME 10.3 fl (9.6-12.3); MONO # 0.3 10*3/uL (0.1-1.0); MONO % 2.2 % (3.0-9.0); NEUT # 10.2 10*3/uL (2.3-7.9); NEUT % 86.1 % (47.0-73.0); PLATELET COUNT AUTOMATED 244 10*3/uL (130-400); RED BLOOD COUNT 4.34 10*6/uL (4.50-5.90); RED CELL DISTRI WIDTH 14.9 % (0-14.5); WHITE BLOOD COUNT 11.8 10*3/uL (4.8-10.8)
[2022-09-26 18:10] LABS: CREATININE 2.28 mg/dL (0.70-1.30); POTASSIUM 4.4 mmol/L (3.5-5.1); TOTAL PROTEIN 6.3 gm/dL (6.4-8.2)
[2022-09-26 18:36] LABS: BILIRUBIN Negative (Negative); BLOOD Negative (Negative); CLARITY Clear (Clear); COLOR Yellow (Yellow); GLUCOSE 2+ (Negative); KETONE Negative (Negative); LEUKO ESTERASE Negative (Negative); NITRITE Negative (Negative); PH 5.5 (4.5-8.0); UROBILINOGEN 0.2 E.U./dl (0.0-1.0)
[2022-09-26 18:51] LABS: BACTERIA 1+
[2022-09-26 19:03] VITALS: BP 162/88
[2022-09-26] MEDS ORDERED: LIPITOR40 MG PO (19:50)
[2022-09-26 20:41] VITALS: BP 180/99
[2022-09-26 21:06] VITALS: BP 190/100
[2022-09-26] MEDS ORDERED: AMLODIPINE BESYL5 MG PO (21:09)
[2022-09-27] VITALS: BP 157/95
[2022-09-27 06:11] LABS: CREATININE 2.68 mg/dL (0.70-1.30); POTASSIUM 4.7 mmol/L (3.5-5.1); TOTAL PROTEIN 6.7 gm/dL (6.4-8.2)
[2022-09-27 06:20] LABS: HEMATOCRIT 39.3 % (42.0-52.0); MEAN CELL VOLUME 86.2 fl (80.0-94.0); MEAN CORPUSCULAR HGB 28.7 pg (27.0-31.0); MEAN CORPUSCULAR HGB CONC 33.3 g/dl (33.0-37.0); MEAN PLATELET VOLUME 10.7 fl (9.6-12.3); PLATELET COUNT AUTOMATED 260 10*3/uL (130-400); RED BLOOD COUNT 4.56 10*6/uL (4.50-5.90); RED CELL DISTRI WIDTH 14.6 % (0-14.5); WHITE BLOOD COUNT 10.6 10*3/uL (4.8-10.8)
[2022-09-27 06:21] LABS: MANUAL DIFF REFLEX YES
[2022-09-27 06:48] LABS: OVALOCYTES FEW; POLYCHROMASIA SLIGHT; TOTAL CELLS COUNTED 100 #CELLS; TOXIC GRANULATION SLIGHT
[2022-09-27 06:49] LABS: BURR CELLS FEW; PLATELET SUFFICIENCY NORMAL (NORMAL)
[2022-09-27 08:00] VITALS: BP 174/67
[2022-09-27 12:00] VITALS: BP 112/51
[2022-09-27 16:00] VITALS: BP 124/51
[2022-09-27 20:00] VITALS: BP 147/81
[2022-09-28] VITALS: BP 143/68
[2022-09-28 06:43] LABS: CREATININE 2.53 mg/dL (0.70-1.30); POTASSIUM 4.5 mmol/L (3.5-5.1)
[2022-09-28 06:45] LABS: BASO % 0.1 % (0.0-1.0); HEMATOCRIT 36.3 % (42.0-52.0); LYMPH # 1.2 10*3/uL (1.3-4.4); LYMPH % 6.4 % (27.0-41.0); MEAN CELL VOLUME 85.4 fl (80.0-94.0); MEAN CORPUSCULAR HGB 28.5 pg (27.0-31.0); MEAN CORPUSCULAR HGB CONC 33.3 g/dl (33.0-37.0); MEAN PLATELET VOLUME 10.6 fl (9.6-12.3); MONO # 0.7 10*3/uL (0.1-1.0); MONO % 3.7 % (3.0-9.0); NEUT # 16.6 10*3/uL (2.3-7.9); NEUT % 88.8 % (47.0-73.0); PLATELET COUNT AUTOMATED 307 10*3/uL (130-400); RED BLOOD COUNT 4.25 10*6/uL (4.50-5.90); RED CELL DISTRI WIDTH 14.5 % (0-14.5); WHITE BLOOD COUNT 18.7 10*3/uL (4.8-10.8)
[2022-09-28 08:00] VITALS: BP 130/82
[2022-09-28 12:00] VITALS: BP 140/86
[2022-09-28 16:00] VITALS: BP 152/79
[2022-09-28 20:00] VITALS: BP 156/79
[2022-09-29] VITALS: BP 153/75
[2022-09-29 06:44] LABS: HEMATOCRIT 36.5 % (42.0-52.0); MANUAL DIFF REFLEX YES; MEAN CELL VOLUME 86.3 fl (80.0-94.0); MEAN CORPUSCULAR HGB 28.8 pg (27.0-31.0); MEAN CORPUSCULAR HGB CONC 33.4 g/dl (33.0-37.0); MEAN PLATELET VOLUME 10.3 fl (9.6-12.3); PLATELET COUNT AUTOMATED 265 10*3/uL (130-400); RED BLOOD COUNT 4.23 10*6/uL (4.50-5.90); RED CELL DISTRI WIDTH 14.6 % (0-14.5); WHITE BLOOD COUNT 17.3 10*3/uL (4.8-10.8)
[2022-09-29 06:59] LABS: CREATININE 2.51 mg/dL (0.70-1.30); POTASSIUM 4.1 mmol/L (3.5-5.1)
[2022-09-29 07:21] LABS: ATYPICAL LYMPHS 1 % (0-0); POLYCHROMASIA SLIGHT; TOTAL CELLS COUNTED 100 #CELLS
[2022-09-29 07:22] LABS: OVALOCYTES FEW; PLATELET SUFFICIENCY NORMAL (NORMAL)
[2022-09-29 08:00] VITALS: BP 143/65
[2022-09-29] MEDS ORDERED: OMNICEF300 MG PO (11:12)
[2022-09-29] MEDS ORDERED: AVPAK AZITHROM250 M1 PO (11:12)
[2022-09-29] MEDS ORDERED: FUROSEMIDE40 MG PO ×3 (11:15→11:24)
[2022-09-29 12:00] VITALS: BP 152/61
== END 2022-09-29 12:40 | disposition home health service (06) | DRG 177 ==
LOC: ED 16:52 → EDHOLD 19:07 → 4E 19:07
PROVIDERS: Family Medicine; Internal Medicine; Physician Assistant; Registered Nurse; ADMIT Emergency Medicine; ATTEND Emergency Medicine
DX: J15.6 Pneumonia due to other Gram-negative bacteria (principal); E43 Unspecified severe protein-calorie malnutrition; I50.33 Acute on chronic diastolic (congestive) heart failure; J44.1 Chronic obstructive pulmonary disease with (acute) exacerbation; N18.4 Chronic kidney disease, stage 4 (severe); Z68.43 Body mass index [BMI] 50.0-59.9, adult; I13.0 Hypertensive heart and chronic kidney disease with heart failure and stage 1 through stage 4 chronic kidney disease, or unspecified chronic kidney disease; D64.9 Anemia, unspecified; D72.9 Disorder of white blood cells, unspecified; M17.12 Unilateral primary osteoarthritis, left knee; N18.30 Chronic kidney disease, stage 3 unspecified; G47.33 Obstructive sleep apnea (adult) (pediatric); I16.0 Hypertensive urgency; E66.01 Morbid (severe) obesity due to excess calories; E11.22 Type 2 diabetes mellitus with diabetic chronic kidney disease; E11.65 Type 2 diabetes mellitus with hyperglycemia; E87.8 Other disorders of electrolyte and fluid balance, not elsewhere classified; Z90.49 Acquired absence of other specified parts of digestive tract; Z87.891 Personal history of nicotine dependence; Z79.4 Long term (current) use of insulin

== ENCOUNTER → 2023-10-04 | Emergency (ER) | payer OTHER ==
[~2023-10-04] VITALS: Wt 145.1 kg
[~2023-10-04] MED LIST changes: +AVPAK AZITHROM250 M1 PO; +BUMETANIDE1 MG PO; +CEFAZOLIN1 G1 IV; +CIPROFLOXACIN750 MG PO; +DOXYCYCLINE HY100 M3 PO; +FISH OIL CONC1 EACH PO; +LASIX40 MG PO; +NEURONTIN300 MG PO; +OMNICEF300 MG PO; +PROVENTIL HFA6.7 GM INH; +VICTOZA 3-0.6 MG/0.1 SQ; +ZITHROMAX TRI-500 M1 PO
[2023-10-04 10:39] LABS: BASO # 0.1 10*3/uL (0.0-0.1); BASO % 0.5 % (0.0-1.0); EOS # 0.5 10*3/uL (0.0-0.4); EOS % 4.5 % (1.0-4.0); HEMATOCRIT 39.4 % (42.0-52.0); LYMPH # 2.3 10*3/uL (1.3-4.4); LYMPH % 21.4 % (27.0-41.0); MEAN CORPUSCULAR HGB 28.8 pg (27.0-31.0); MEAN CORPUSCULAR HGB CONC 34.3 g/dl (33.0-37.0); MEAN PLATELET VOLUME 9.6 fl (9.6-12.3); MONO # 0.7 10*3/uL (0.1-1.0); MONO % 6.2 % (3.0-9.0); NEUT # 7.1 10*3/uL (2.3-7.9); PLATELET COUNT AUTOMATED 251 10*3/uL (130-400); RED BLOOD COUNT 4.69 10*6/uL (4.50-5.90); RED CELL DISTRI WIDTH 14.6 % (0-14.5); WHITE BLOOD COUNT 10.5 10*3/uL (4.8-10.8)
[2023-10-04 11:01] LABS: ALKALINE PHOSPHATASE 70 U/L (46-116); BUN 38 mg/dl (9-23); CHLORIDE 110 mmol/L (98-107); POTASSIUM 4.1 mmol/L (3.4-5.1); SGPT/ALT 18 U/L (5-49); TOTAL PROTEIN 7.3 gm/dL (6.0-8.0)
== END ==
LOC: ED 09:49
PROVIDERS: Family Medicine
DX: E11.621 Type 2 diabetes mellitus with foot ulcer (principal); L97.529 Non-pressure chronic ulcer of other part of left foot with unspecified severity; I13.0 Hypertensive heart and chronic kidney disease with heart failure and stage 1 through stage 4 chronic kidney disease, or unspecified chronic kidney disease; I50.9 Heart failure, unspecified; J44.9 Chronic obstructive pulmonary disease, unspecified; Z87.442 Personal history of urinary calculi; E11.22 Type 2 diabetes mellitus with diabetic chronic kidney disease; N18.9 Chronic kidney disease, unspecified; Z90.49 Acquired absence of other specified parts of digestive tract; Z98.890 Other specified postprocedural states; Z87.891 Personal history of nicotine dependence

== ENCOUNTER 2023-10-14 21:57 | Emergency (ER) | payer OTHER ==
[~2023-10-14] VITALS: Ht 172.7 cm; Wt 136.1 kg
[2023-10-14 22:59] LABS: BASO # 0.1 10*3/uL (0.0-0.1); BASO % 0.8 % (0.0-1.0); EOS # 0.4 10*3/uL (0.0-0.4); EOS % 3.9 % (1.0-4.0); HEMATOCRIT 38.1 % (42.0-52.0); LYMPH # 1.8 10*3/uL (1.3-4.4); LYMPH % 18.8 % (27.0-41.0); MEAN CELL VOLUME 83.4 fl (80.0-94.0); MEAN CORPUSCULAR HGB 28.4 pg (27.0-31.0); MEAN CORPUSCULAR HGB CONC 34.1 g/dl (33.0-37.0); MEAN PLATELET VOLUME 9.6 fl (9.6-12.3); MONO # 0.6 10*3/uL (0.1-1.0); MONO % 5.8 % (3.0-9.0); NEUT # 6.7 10*3/uL (2.3-7.9); NEUT % 70.5 % (47.0-73.0); PLATELET COUNT AUTOMATED 214 10*3/uL (130-400); RED BLOOD COUNT 4.57 10*6/uL (4.50-5.90); RED CELL DISTRI WIDTH 14.5 % (0-14.5); WHITE BLOOD COUNT 9.6 10*3/uL (4.8-10.8)
[2023-10-14 23:21] LABS: POTASSIUM 4.1 mmol/L (3.4-5.1); TOTAL PROTEIN 6.8 gm/dL (6.0-8.0)
[2023-10-14 23:53] LABS: BILIRUBIN Negative (Negative); BLOOD 2+ (Negative); CLARITY Clear (Clear); COLOR Yellow (Yellow); GLUCOSE 1+ (Negative); KETONE Negative (Negative); NITRITE Negative (Negative); PH 5.5 (4.5-8.0)
[2023-10-15] LABS: LEUKO ESTERASE Trace (Negative)
[2023-10-15 00:01] LABS: BACTERIA 1+; MUCOUS 1+; WBC 16-20 wbc/hpf (0-5)
== END 2023-10-15 00:51 | disposition home or self-care (01) ==
LOC: ED 21:57
PROVIDERS: Nurse Practitioner Family
DX: A08.4 Viral intestinal infection, unspecified (principal); J44.9 Chronic obstructive pulmonary disease, unspecified; I13.0 Hypertensive heart and chronic kidney disease with heart failure and stage 1 through stage 4 chronic kidney disease, or unspecified chronic kidney disease; E11.22 Type 2 diabetes mellitus with diabetic chronic kidney disease; N18.9 Chronic kidney disease, unspecified; I50.9 Heart failure, unspecified; E11.65 Type 2 diabetes mellitus with hyperglycemia; Z87.442 Personal history of urinary calculi; D64.9 Anemia, unspecified; N18.30 Chronic kidney disease, stage 3 unspecified; Z98.890 Other specified postprocedural states; Z90.49 Acquired absence of other specified parts of digestive tract; Z87.891 Personal history of nicotine dependence; Z20.822 Contact with and (suspected) exposure to COVID-19

== ENCOUNTER 2024-01-11 22:59 | Inpatient (IN) | payer OTHER ==
[~2024-01-11] VITALS: Ht 172.7 cm; Wt 151.2 kg
[2024-01-11 23:20] VITALS: BP 175/87
[2024-01-11] MEDS ORDERED: Metoprolol Tartrate 5 MG/5 ML VIAL IV ONE (23:25)
[2024-01-11 23:58] LABS: HEMATOCRIT 39.8 % (42.0-52.0); MEAN CELL VOLUME 86.7 fl (80.0-94.0); MEAN CORPUSCULAR HGB 28.5 pg (27.0-31.0); MEAN CORPUSCULAR HGB CONC 32.9 g/dl (33.0-37.0); MEAN PLATELET VOLUME 9.8 fl (9.6-12.3); PLATELET COUNT AUTOMATED 212 10*3/uL (130-400); RED BLOOD COUNT 4.59 10*6/uL (4.50-5.90); RED CELL DISTRI WIDTH 14.8 % (0-14.5)
[2024-01-12 00:10] VITALS: BP 147/75
[2024-01-12 00:11] LABS: MANUAL DIFF REFLEX YES
[2024-01-12 00:22] LABS: BASOPHILS 1 % (0-1); PLATELET SUFFICIENCY NORMAL (NORMAL); TOTAL CELLS COUNTED 100 #CELLS
[2024-01-12 00:25] LABS: POTASSIUM 4.2 mmol/L (3.4-5.1)
[2024-01-12] MEDS ORDERED: Albuterol Sulf/Ipratropium 3 ML VIAL NEB ONE (00:35)
[2024-01-12] MEDS ORDERED: Vancomycin Hydrochloride 250 ML IV ONE (00:40)
[2024-01-12] MEDS ORDERED: BUMETANIDE 1 MG/4 ML VIAL IV ONE (00:40)
[2024-01-12] MEDS ORDERED: Piperacillin Sodium/Tazobact 50 ML IV ONE (00:40)
[2024-01-12] MEDS ORDERED: methylPREDNISolone sod succ 125 MG VIAL IV ONE (02:20)
[2024-01-12] MEDS ORDERED: Ondansetron Hydrochloride 4 MG/2 ML VIAL IV PRN (02:40)
[2024-01-12] MEDS ORDERED: Magnesium Hydroxide 30 ML UDC PO PRN (02:40)
[2024-01-12] MEDS ORDERED: Acetaminophen/Hydrocodone 5 MG/325 MG TABLET PO PRN (02:40)
[2024-01-12] MEDS ORDERED: TEMAZEPAM 15 MG CAP PO PRN (02:40)
[2024-01-12] MEDS ORDERED: BISACODYL 5 MG TAB PO PRN (02:40)
[2024-01-12] MEDS ORDERED: ACETAMINOPHEN 325 MG TAB PO PRN (02:40)
[2024-01-12] MEDS ORDERED: Albuterol Sulf/Ipratropium 3 ML VIAL NEB PRN (02:50)
[2024-01-12] MEDS ORDERED: DEXTROSE 10 % IN WATER 250 ML IV PRN (02:50)
[2024-01-12 04:11] LABS: BILIRUBIN Negative (Negative); BLOOD 1+ (Negative); CLARITY Clear (Clear); COLOR Yellow (Yellow); GLUCOSE 2+ (Negative); KETONE Negative (Negative); LEUKO ESTERASE Negative (Negative); NITRITE Negative (Negative); PH 5.5 (4.5-8.0); UROBILINOGEN 0.2 E.U./dl (0.0-1.0)
[2024-01-12 04:22] LABS: BACTERIA TRACE; WBC 0-2 wbc/hpf (0-5)
[2024-01-12 06:00] VITALS: BP 127/50
[2024-01-12 06:06] LABS: HEMATOCRIT 32.9 % (42.0-52.0); MEAN CELL VOLUME 85.9 fl (80.0-94.0); MEAN CORPUSCULAR HGB 28.7 pg (27.0-31.0); MEAN CORPUSCULAR HGB CONC 33.4 g/dl (33.0-37.0); MEAN PLATELET VOLUME 10.1 fl (9.6-12.3); PLATELET COUNT AUTOMATED 194 10*3/uL (130-400); RED BLOOD COUNT 3.83 10*6/uL (4.50-5.90); RED CELL DISTRI WIDTH 14.9 % (0-14.5); WHITE BLOOD COUNT 24.3 10*3/uL (4.8-10.8)
[2024-01-12 06:15] LABS: MANUAL DIFF REFLEX YES
[2024-01-12 06:23] LABS: POTASSIUM 4.2 mmol/L (3.4-5.1); TOTAL PROTEIN 6.2 gm/dL (6.0-8.0)
[2024-01-12] MEDS ORDERED: INSULIN LISPRO 1 UNIT/0.01 ML SQ SCH (07:30)
[2024-01-12] MEDS ORDERED: Piperacillin Sodium/Tazobact 2.25 GM in SODIUM CHLORIDE 0.9% 50 ML IV SCH (08:00)
[2024-01-12 08:02] LABS: PLATELET SUFFICIENCY NORMAL (NORMAL); TOTAL CELLS COUNTED 100 #CELLS
[2024-01-12 08:15] VITALS: BP 165/92; BP 165/93
[2024-01-12] MEDS ORDERED: GUAIFENESIN 600 MG TAB ER PO SCH (10:00)
[2024-01-12] MEDS ORDERED: methylPREDNISolone sod succ 40 MG VIAL IV SCH (10:00)
[2024-01-12] MEDS ORDERED: BUMETANIDE 1 MG/4 ML VIAL IV SCH (10:00)
[2024-01-12] MEDS ORDERED: Enoxaparin Sodium 30 MG/0.3 ML SYR SC SCH (10:00)
[2024-01-12 12:00] VITALS: BP 102/54
[2024-01-12] MEDS ORDERED: FUROSEMIDE40 MG PO (12:07)
[2024-01-12] MEDS ORDERED: BUMETANIDE1 MG PO (12:47)
[2024-01-12 16:00] VITALS: BP 157/84
[2024-01-12] MEDS ORDERED: VANCOMYCIN/WATER FOR INJ (PEG) 400 ML IV SCH (18:00)
[2024-01-12 20:00] VITALS: BP 165/85
[2024-01-12] MEDS ORDERED: Insulin Glargine, Recombinan 1 UNIT/0.01 ML SC SCH (22:00)
[2024-01-13] VITALS: BP 155/92
[2024-01-13 06:42] LABS: POTASSIUM 4.1 mmol/L (3.4-5.1)
[2024-01-13 06:47] LABS: BASO % 0.1 % (0.0-1.0); HEMATOCRIT 34.2 % (42.0-52.0); LYMPH # 1.2 10*3/uL (1.3-4.4); LYMPH % 5.8 % (27.0-41.0); MEAN CELL VOLUME 83.8 fl (80.0-94.0); MEAN CORPUSCULAR HGB 29.2 pg (27.0-31.0); MEAN CORPUSCULAR HGB CONC 34.8 g/dl (33.0-37.0); MEAN PLATELET VOLUME 10.1 fl (9.6-12.3); MONO # 1.2 10*3/uL (0.1-1.0); MONO % 5.6 % (3.0-9.0); NEUT # 18.4 10*3/uL (2.3-7.9); NEUT % 87.7 % (47.0-73.0); PLATELET COUNT AUTOMATED 204 10*3/uL (130-400); RED BLOOD COUNT 4.08 10*6/uL (4.50-5.90); RED CELL DISTRI WIDTH 14.7 % (0-14.5)
[2024-01-13 08:00] VITALS: BP 151/83
[2024-01-13] MEDS ORDERED: ATORVASTATIN CALCIUM 40 MG TABLET PO SCH (10:00)
[2024-01-13] MEDS ORDERED: GABAPENTIN 300 MG CAP PO SCH ×2 (10:00→22:00)
[2024-01-13 12:00] VITALS: BP 155/87
[2024-01-13 16:00] VITALS: BP 127/62
[2024-01-13 20:00] VITALS: BP 172/88
[2024-01-14] VITALS: BP 149/78
[2024-01-14 06:27] LABS: POTASSIUM 4.3 mmol/L (3.4-5.1)
[2024-01-14 06:30] LABS: BASO % 0.3 % (0.0-1.0); EOS # 0.2 10*3/uL (0.0-0.4); EOS % 1.4 % (1.0-4.0); HEMATOCRIT 35.4 % (42.0-52.0); LYMPH # 3.2 10*3/uL (1.3-4.4); LYMPH % 21.5 % (27.0-41.0); MEAN CORPUSCULAR HGB 28.6 pg (27.0-31.0); MEAN CORPUSCULAR HGB CONC 32.8 g/dl (33.0-37.0); MEAN PLATELET VOLUME 9.9 fl (9.6-12.3); MONO % 6.9 % (3.0-9.0); NEUT # 10.3 10*3/uL (2.3-7.9); NEUT % 68.8 % (47.0-73.0); PLATELET COUNT AUTOMATED 205 10*3/uL (130-400); RED BLOOD COUNT 4.06 10*6/uL (4.50-5.90); RED CELL DISTRI WIDTH 15.2 % (0-14.5); WHITE BLOOD COUNT 14.9 10*3/uL (4.8-10.8)
[2024-01-14 06:31] LABS: MEAN CELL VOLUME 87.2 fl (80.0-94.0)
[2024-01-14 08:00] VITALS: BP 136/96
[2024-01-14 12:00] VITALS: BP 175/95
[2024-01-14 16:00] VITALS: BP 154/73
[2024-01-14 20:00] VITALS: BP 145/77
[2024-01-15] VITALS: BP 159/68
[2024-01-15 05:58] LABS: POTASSIUM 4.3 mmol/L (3.4-5.1)
[2024-01-15 06:28] LABS: BASO # 0.1 10*3/uL (0.0-0.1); BASO % 0.5 % (0.0-1.0); EOS # 0.3 10*3/uL (0.0-0.4); EOS % 2.5 % (1.0-4.0); HEMATOCRIT 34.6 % (42.0-52.0); LYMPH # 3.4 10*3/uL (1.3-4.4); LYMPH % 27.1 % (27.0-41.0); MEAN CELL VOLUME 87.2 fl (80.0-94.0); MEAN CORPUSCULAR HGB 28.5 pg (27.0-31.0); MEAN CORPUSCULAR HGB CONC 32.7 g/dl (33.0-37.0); MEAN PLATELET VOLUME 10.3 fl (9.6-12.3); MONO % 7.6 % (3.0-9.0); NEUT # 7.7 10*3/uL (2.3-7.9); NEUT % 60.9 % (47.0-73.0); PLATELET COUNT AUTOMATED 202 10*3/uL (130-400); RED BLOOD COUNT 3.97 10*6/uL (4.50-5.90); RED CELL DISTRI WIDTH 15.2 % (0-14.5); WHITE BLOOD COUNT 12.7 10*3/uL (4.8-10.8)
[2024-01-15 08:00] VITALS: BP 153/84
[2024-01-15 12:00] VITALS: BP 158/93
[2024-01-15 16:00] VITALS: BP 160/97
[2024-01-15 17:30] VITALS: BP 162/80
[2024-01-15 20:00] VITALS: BP 156/74
[2024-01-15] MEDS ORDERED: VANCOMYCIN/WATER FOR INJ (PEG) 350 ML IV SCH (22:00)
[2024-01-16] VITALS: BP 169/86
[2024-01-16 06:15] LABS: POTASSIUM 4.2 mmol/L (3.4-5.1)
[2024-01-16 06:30] LABS: BASO # 0.1 10*3/uL (0.0-0.1); BASO % 0.6 % (0.0-1.0); EOS # 0.3 10*3/uL (0.0-0.4); EOS % 2.9 % (1.0-4.0); HEMATOCRIT 36.6 % (42.0-52.0); LYMPH # 2.8 10*3/uL (1.3-4.4); LYMPH % 27.6 % (27.0-41.0); MEAN CELL VOLUME 87.4 fl (80.0-94.0); MEAN CORPUSCULAR HGB 28.6 pg (27.0-31.0); MEAN CORPUSCULAR HGB CONC 32.8 g/dl (33.0-37.0); MONO # 0.6 10*3/uL (0.1-1.0); NEUT # 6.3 10*3/uL (2.3-7.9); NEUT % 61.4 % (47.0-73.0); PLATELET COUNT AUTOMATED 199 10*3/uL (130-400); RED BLOOD COUNT 4.19 10*6/uL (4.50-5.90); RED CELL DISTRI WIDTH 14.9 % (0-14.5); WHITE BLOOD COUNT 10.2 10*3/uL (4.8-10.8)
[2024-01-16 08:00] VITALS: BP 160/78
[2024-01-16 12:00] VITALS: BP 165/97
[2024-01-16 16:00] VITALS: BP 180/90
[2024-01-16 20:00] VITALS: BP 141/55
[2024-01-17] VITALS (8 sets, daily range): BP systolic 120–173; BP diastolic 54–98
[2024-01-17 06:36] LABS: POTASSIUM 4.1 mmol/L (3.4-5.1)
[2024-01-17 06:46] LABS: BASO # 0.1 10*3/uL (0.0-0.1); BASO % 0.4 % (0.0-1.0); EOS # 0.4 10*3/uL (0.0-0.4); EOS % 2.8 % (1.0-4.0); HEMATOCRIT 36.6 % (42.0-52.0); LYMPH # 3.2 10*3/uL (1.3-4.4); LYMPH % 23.7 % (27.0-41.0); MEAN CELL VOLUME 85.7 fl (80.0-94.0); MEAN CORPUSCULAR HGB 28.6 pg (27.0-31.0); MEAN CORPUSCULAR HGB CONC 33.3 g/dl (33.0-37.0); MEAN PLATELET VOLUME 9.8 fl (9.6-12.3); MONO # 0.8 10*3/uL (0.1-1.0); MONO % 5.9 % (3.0-9.0); NEUT # 8.8 10*3/uL (2.3-7.9); NEUT % 65.6 % (47.0-73.0); PLATELET COUNT AUTOMATED 210 10*3/uL (130-400); RED BLOOD COUNT 4.27 10*6/uL (4.50-5.90); RED CELL DISTRI WIDTH 14.9 % (0-14.5); WHITE BLOOD COUNT 13.3 10*3/uL (4.8-10.8)
[2024-01-17] MEDS ORDERED: SODIUM CHLORIDE 0.9% 1,000 ML IV ONE ×2 (14:45→14:51)
[2024-01-17] MEDS ORDERED: BUPIVACAINE 0.5% 0 ML IV ONE (15:47)
[2024-01-17] MEDS ORDERED: BUPIVACAINE 0.5% 10 ML VIAL ONE (15:48)
[2024-01-17] MEDS ORDERED: Midazolam Hydrochloride 2 MG/2 ML VIAL IV ONE (16:47)
[2024-01-17] MEDS ORDERED: PROPOFOL 200 MG/20 ML VIAL IV ONE (16:47)
[2024-01-18] VITALS: BP 177/97
[2024-01-18 01:44] VITALS: BP 158/88
[2024-01-18 06:33] LABS: BASO # 0.1 10*3/uL (0.0-0.1); BASO % 0.4 % (0.0-1.0); EOS # 0.4 10*3/uL (0.0-0.4); EOS % 2.7 % (1.0-4.0); HEMATOCRIT 34.4 % (42.0-52.0); LYMPH % 22.9 % (27.0-41.0); MEAN CELL VOLUME 88.7 fl (80.0-94.0); MEAN CORPUSCULAR HGB 28.9 pg (27.0-31.0); MEAN CORPUSCULAR HGB CONC 32.6 g/dl (33.0-37.0); MEAN PLATELET VOLUME 9.4 fl (9.6-12.3); MONO # 0.7 10*3/uL (0.1-1.0); MONO % 5.6 % (3.0-9.0); NEUT # 8.8 10*3/uL (2.3-7.9); NEUT % 67.1 % (47.0-73.0); PLATELET COUNT AUTOMATED 191 10*3/uL (130-400); RED BLOOD COUNT 3.88 10*6/uL (4.50-5.90); RED CELL DISTRI WIDTH 15.1 % (0-14.5); WHITE BLOOD COUNT 13.1 10*3/uL (4.8-10.8)
[2024-01-18 06:53] LABS: POTASSIUM 4.4 mmol/L (3.4-5.1)
[2024-01-18 08:00] VITALS: BP 169/86
[2024-01-18 12:00] VITALS: BP 167/70
[2024-01-18 16:00] VITALS: BP 154/86
[2024-01-18 20:00] VITALS: BP 152/79
[2024-01-18] MEDS ORDERED: METRONIDAZOLE500 M1 PO (23:38)
[2024-01-18] MEDS ORDERED: LEVOFLOXACIN750 M2 PO (23:38)
[2024-01-18] MEDS ORDERED: DALVANCE500 MG IV (23:38)
[2024-01-19] VITALS: BP 146/51
[2024-01-19 06:52] LABS: POTASSIUM 4.5 mmol/L (3.4-5.1)
[2024-01-19 08:00] VITALS: BP 153/46
[2024-01-19 12:00] VITALS: BP 144/52
[2024-01-19] MEDS ORDERED: LEVOFLOXACIN750 M2 PO (12:58)
[2024-01-19] MEDS ORDERED: METRONIDAZOLE500 M1 PO (12:58)
[2024-01-19] MEDS ORDERED: Piperacillin Sodium/Tazobact 2.25 GM in SODIUM CHLORIDE 0.9% 50 ML IV SCH (14:00)
[2024-01-19 16:00] VITALS: BP 158/68
[2024-01-19] MEDS ORDERED: Acetaminophen/Hydrocodone 5 MG/325 MG TABLET PO PRN (17:15)
[2024-01-19 20:00] VITALS: BP 160/79
[2024-01-19] MEDS ORDERED: TEMAZEPAM 15 MG CAP PO PRN (22:00)
[2024-01-20] VITALS: BP 148/64
[2024-01-20 06:10] LABS: BASO # 0.1 10*3/uL (0.0-0.1); BASO % 0.5 % (0.0-1.0); EOS # 0.4 10*3/uL (0.0-0.4); EOS % 3.2 % (1.0-4.0); HEMATOCRIT 34.9 % (42.0-52.0); LYMPH # 2.2 10*3/uL (1.3-4.4); LYMPH % 20.2 % (27.0-41.0); MEAN CELL VOLUME 87.9 fl (80.0-94.0); MEAN CORPUSCULAR HGB 29.2 pg (27.0-31.0); MEAN CORPUSCULAR HGB CONC 33.2 g/dl (33.0-37.0); MEAN PLATELET VOLUME 9.7 fl (9.6-12.3); MONO # 0.7 10*3/uL (0.1-1.0); MONO % 6.4 % (3.0-9.0); NEUT # 7.6 10*3/uL (2.3-7.9); NEUT % 68.3 % (47.0-73.0); PLATELET COUNT AUTOMATED 175 10*3/uL (130-400); RED BLOOD COUNT 3.97 10*6/uL (4.50-5.90); WHITE BLOOD COUNT 11.1 10*3/uL (4.8-10.8)
[2024-01-20 06:50] LABS: POTASSIUM 4.5 mmol/L (3.4-5.1)
[2024-01-20 08:00] VITALS: BP 139/72
[2024-01-20 16:00] VITALS: BP 164/76
[2024-01-20 20:00] VITALS: BP 199/94
[2024-01-20 20:10] VITALS: BP 152/82
[2024-01-21 00:30] VITALS: BP 155/86
[2024-01-21 05:35] LABS: POTASSIUM 4.7 mmol/L (3.4-5.1)
[2024-01-21 06:08] LABS: BASO % 0.5 % (0.0-1.0); EOS # 0.2 10*3/uL (0.0-0.4); EOS % 2.6 % (1.0-4.0); LYMPH # 2.1 10*3/uL (1.3-4.4); LYMPH % 23.6 % (27.0-41.0); MEAN CELL VOLUME 88.3 fl (80.0-94.0); MEAN CORPUSCULAR HGB 29.1 pg (27.0-31.0); MEAN CORPUSCULAR HGB CONC 32.9 g/dl (33.0-37.0); MEAN PLATELET VOLUME 9.9 fl (9.6-12.3); MONO # 0.6 10*3/uL (0.1-1.0); MONO % 7.2 % (3.0-9.0); NEUT # 5.7 10*3/uL (2.3-7.9); NEUT % 64.7 % (47.0-73.0); PLATELET COUNT AUTOMATED 165 10*3/uL (130-400); RED BLOOD COUNT 3.85 10*6/uL (4.50-5.90); RED CELL DISTRI WIDTH 15.1 % (0-14.5); WHITE BLOOD COUNT 8.8 10*3/uL (4.8-10.8)
[2024-01-21 08:00] VITALS: BP 187/98
[2024-01-21 12:00] VITALS: BP 176/85
[2024-01-21] MEDS ORDERED: GABAPENTIN 300 MG CAP PO SCH (14:00)
[2024-01-21 16:00] VITALS: BP 167/87
[2024-01-21 20:00] VITALS: BP 189/96
[2024-01-22] VITALS: BP 156/73
[2024-01-22 06:04] LABS: POTASSIUM 4.7 mmol/L (3.4-5.1)
[2024-01-22 06:19] LABS: BASO % 0.5 % (0.0-1.0); EOS # 0.2 10*3/uL (0.0-0.4); EOS % 2.5 % (1.0-4.0); HEMATOCRIT 35.2 % (42.0-52.0); LYMPH # 1.8 10*3/uL (1.3-4.4); LYMPH % 20.8 % (27.0-41.0); MEAN CELL VOLUME 88.7 fl (80.0-94.0); MEAN CORPUSCULAR HGB 28.7 pg (27.0-31.0); MEAN CORPUSCULAR HGB CONC 32.4 g/dl (33.0-37.0); MEAN PLATELET VOLUME 9.9 fl (9.6-12.3); MONO # 0.6 10*3/uL (0.1-1.0); MONO % 6.9 % (3.0-9.0); NEUT # 5.9 10*3/uL (2.3-7.9); PLATELET COUNT AUTOMATED 169 10*3/uL (130-400); RED BLOOD COUNT 3.97 10*6/uL (4.50-5.90); WHITE BLOOD COUNT 8.7 10*3/uL (4.8-10.8)
[2024-01-22 08:00] VITALS: BP 172/102
[2024-01-22 09:11] VITALS: BP 136/78
[2024-01-22 12:00] VITALS: BP 172/78
[2024-01-22] MEDS ORDERED: CARVEDILOL25 MG PO (12:56)
[2024-01-22] MEDS ORDERED: HYDROCODONE-AC1 EAC1 PO (12:56)
[2024-01-22] MEDS ORDERED: NEURONTIN300 MG PO (12:56)
[2024-01-22] MEDS ORDERED: AMLODIPINE BESYL5 MG PO (12:56)
== END 2024-01-22 15:23 | disposition home or self-care (01) | DRG 853 ==
LOC: ED 22:59 → 4E 01-12 02:33 → EDHOLD 01-12 02:33 → 4E 01-12 07:34
PROVIDERS: Internal Medicine; Registered Nurse; Student in an Organized Health Care Education/Training Program; ADMIT Internal Medicine; ATTEND Internal Medicine
PROC: 0QBR0ZX Excision of Left Toe Phalanx, Open Approach, Diagnostic (ICD-10-PCS; principal; 2024-01-17)
DX: A41.9 Sepsis, unspecified organism (principal); I50.33 Acute on chronic diastolic (congestive) heart failure; N17.0 Acute kidney failure with tubular necrosis; J44.1 Chronic obstructive pulmonary disease with (acute) exacerbation; I13.0 Hypertensive heart and chronic kidney disease with heart failure and stage 1 through stage 4 chronic kidney disease, or unspecified chronic kidney disease; L03.115 Cellulitis of right lower limb; N18.4 Chronic kidney disease, stage 4 (severe); M86.8X7 Other osteomyelitis, ankle and foot; Z68.43 Body mass index [BMI] 50.0-59.9, adult; M17.12 Unilateral primary osteoarthritis, left knee; E11.22 Type 2 diabetes mellitus with diabetic chronic kidney disease; E66.01 Morbid (severe) obesity due to excess calories; G47.33 Obstructive sleep apnea (adult) (pediatric); R65.20 Severe sepsis without septic shock; G25.0 Essential tremor; M91.10 Juvenile osteochondrosis of head of femur [Legg-Calve-Perthes], unspecified leg; E11.69 Type 2 diabetes mellitus with other specified complication; I87.8 Other specified disorders of veins; E11.51 Type 2 diabetes mellitus with diabetic peripheral angiopathy without gangrene; Z91.199 Patient's noncompliance with other medical treatment and regimen due to unspecified reason; Z90.49 Acquired absence of other specified parts of digestive tract; Z79.4 Long term (current) use of insulin

== ENCOUNTER 2024-02-12 07:00 | Emergency (ER) | payer OTHER ==
[~2024-02-12] VITALS: Ht 172.7 cm; Wt 149.7 kg
[~2024-02-12 07:00] MED LIST changes: +DALVANCE500 MG IV; +HYDROCODONE-AC1 EAC1 PO; +METRONIDAZOLE500 M1 PO
[2024-02-12 07:36] LABS: BASO # 0.1 10*3/uL (0.0-0.1); BASO % 0.7 % (0.0-1.0); EOS # 0.6 10*3/uL (0.0-0.4); EOS % 5.2 % (1.0-4.0); HEMATOCRIT 36.5 % (42.0-52.0); LYMPH # 2.3 10*3/uL (1.3-4.4); LYMPH % 21.6 % (27.0-41.0); MEAN CELL VOLUME 89.5 fl (80.0-94.0); MEAN CORPUSCULAR HGB 28.4 pg (27.0-31.0); MEAN CORPUSCULAR HGB CONC 31.8 g/dl (33.0-37.0); MEAN PLATELET VOLUME 9.5 fl (9.6-12.3); MONO # 0.9 10*3/uL (0.1-1.0); MONO % 8.1 % (3.0-9.0); NEUT # 6.7 10*3/uL (2.3-7.9); NEUT % 63.6 % (47.0-73.0); PLATELET COUNT AUTOMATED 210 10*3/uL (130-400); RED BLOOD COUNT 4.08 10*6/uL (4.50-5.90); RED CELL DISTRI WIDTH 14.6 % (0-14.5); WHITE BLOOD COUNT 10.5 10*3/uL (4.8-10.8)
[2024-02-12 07:55] LABS: POTASSIUM 4.5 mmol/L (3.4-5.1); TOTAL PROTEIN 6.7 gm/dL (6.0-8.0)
[2024-02-12] MEDS ORDERED: Albuterol Sulf/Ipratropium 3 ML VIAL NEB ONE ×2 (08:15→11:35)
[2024-02-12] MEDS ORDERED: methylPREDNISolone sod succ 125 MG VIAL IV ONE (08:15)
[2024-02-12] MEDS ORDERED: PREDNISONE20 M1 PO (12:08)
[2024-02-12] MEDS ORDERED: VIBRAMYCIN100 MG PO (12:08)
== END 2024-02-12 12:25 | disposition home or self-care (01) ==
LOC: ED 07:00
PROVIDERS: Internal Medicine
DX: J44.1 Chronic obstructive pulmonary disease with (acute) exacerbation (principal); Z20.822 Contact with and (suspected) exposure to COVID-19; J18.9 Pneumonia, unspecified organism; E11.22 Type 2 diabetes mellitus with diabetic chronic kidney disease; I13.0 Hypertensive heart and chronic kidney disease with heart failure and stage 1 through stage 4 chronic kidney disease, or unspecified chronic kidney disease; N18.9 Chronic kidney disease, unspecified; Z87.442 Personal history of urinary calculi; Z98.890 Other specified postprocedural states; Z90.49 Acquired absence of other specified parts of digestive tract; Z87.891 Personal history of nicotine dependence

== ENCOUNTER 2024-04-09 17:10 | Emergency (ER) | payer OTHER ==
[~2024-04-09] VITALS: Wt 149.7 kg
[~2024-04-09 17:10] MED LIST changes: +PREDNISONE20 M1 PO
[2024-04-09 20:04] LABS: BASO # 0.1 10*3/uL (0.0-0.1); BASO % 0.6 % (0.0-1.0); EOS # 0.4 10*3/uL (0.0-0.4); EOS % 3.1 % (1.0-4.0); HEMATOCRIT 40.9 % (42.0-52.0); LYMPH # 2.2 10*3/uL (1.3-4.4); LYMPH % 18.4 % (27.0-41.0); MEAN CELL VOLUME 84.3 fl (80.0-94.0); MEAN CORPUSCULAR HGB 29.5 pg (27.0-31.0); MEAN PLATELET VOLUME 9.7 fl (9.6-12.3); MONO # 0.7 10*3/uL (0.1-1.0); MONO % 5.6 % (3.0-9.0); NEUT # 8.7 10*3/uL (2.3-7.9); NEUT % 71.9 % (47.0-73.0); PLATELET COUNT AUTOMATED 245 10*3/uL (130-400); RED BLOOD COUNT 4.85 10*6/uL (4.50-5.90); RED CELL DISTRI WIDTH 14.6 % (0-14.5); WHITE BLOOD COUNT 12.1 10*3/uL (4.8-10.8)
[2024-04-09 20:17] LABS: ACT PARTIAL THROMBO TIME 30.5 SECONDS (20.0-32.1)
[2024-04-09 20:23] LABS: POTASSIUM 4.2 mmol/L (3.4-5.1); TOTAL PROTEIN 7.2 gm/dL (6.0-8.0)
[2024-04-09] MEDS ORDERED: SODIUM CHLORIDE 0.9% 1,000 ML IV ONE (20:50)
[2024-04-09] MEDS ORDERED: SEPTDS PO (21:47)
== END 2024-04-09 22:46 | disposition home or self-care (01) ==
LOC: ED 17:10
PROVIDERS: Internal Medicine
DX: S91.302A Unspecified open wound, left foot, initial encounter (principal); N17.9 Acute kidney failure, unspecified; E11.9 Type 2 diabetes mellitus without complications; Z79.899 Other long term (current) drug therapy; Z79.2 Long term (current) use of antibiotics; Z79.4 Long term (current) use of insulin; Z98.890 Other specified postprocedural states; Z90.49 Acquired absence of other specified parts of digestive tract; Z87.891 Personal history of nicotine dependence; X58.XXXA Exposure to other specified factors, initial encounter; Y93.89 Activity, other specified; Y92.89 Other specified places as the place of occurrence of the external cause; Y99.8 Other external cause status

== ENCOUNTER 2024-04-20 16:40 | Emergency (ER) | payer OTHER ==
[~2024-04-20] VITALS: Ht 172.7 cm; Wt 142.9 kg
[~2024-04-20 16:40] MED LIST changes: +SEPTDS PO
[2024-04-20] MEDS ORDERED: ACETAMINOPHEN 325 MG TAB PO ONE (17:40)
[2024-04-20] MEDS ORDERED: Lidocaine Hydrochloride 2 ML AMP SC ONE (17:40)
[2024-04-20] MEDS ORDERED: CEPHALEXIN500 M1 PO (18:31)
[2024-04-20] MEDS ORDERED: Bacitracin Zinc 14 GM TUBE T ONE (18:35)
== END 2024-04-20 18:58 | disposition home or self-care (01) ==
LOC: ED 16:40
DX: S60.351A Superficial foreign body of right thumb, initial encounter (principal); J44.9 Chronic obstructive pulmonary disease, unspecified; I50.9 Heart failure, unspecified; E11.22 Type 2 diabetes mellitus with diabetic chronic kidney disease; I13.0 Hypertensive heart and chronic kidney disease with heart failure and stage 1 through stage 4 chronic kidney disease, or unspecified chronic kidney disease; N18.9 Chronic kidney disease, unspecified; Z87.442 Personal history of urinary calculi; Z90.49 Acquired absence of other specified parts of digestive tract; Z98.890 Other specified postprocedural states; Z87.891 Personal history of nicotine dependence; Z79.4 Long term (current) use of insulin; W22.8XXA Striking against or struck by other objects, initial encounter; Y93.89 Activity, other specified; Y92.89 Other specified places as the place of occurrence of the external cause; Y99.8 Other external cause status

== ENCOUNTER 2024-05-04 12:12 | Inpatient (IN) | payer OTHER ==
[~2024-05-04] VITALS: Ht 172.7 cm; Wt 153.1 kg
[2024-05-04 14:15] VITALS: BP 159/89
[2024-05-04] MEDS ORDERED: LOSARTAN POTASS50 M1 PO (14:18)
[2024-05-04] MEDS ORDERED: Albuterol Sulfate 2.5 MG/3 ML VIAL NEB ONE (15:20)
[2024-05-04] MEDS ORDERED: MAGNESIUM SULFATE 50 ML IV ONE (15:25)
[2024-05-04] MEDS ORDERED: methylPREDNISolone sod succ 125 MG VIAL IV ONE (15:25)
[2024-05-04 15:33] LABS: BASO # 0.1 10*3/uL (0.0-0.1); BASO % 0.5 % (0.0-1.0); EOS # 0.2 10*3/uL (0.0-0.4); EOS % 1.3 % (1.0-4.0); HEMATOCRIT 39.7 % (42.0-52.0); LYMPH # 1.1 10*3/uL (1.3-4.4); LYMPH % 9.3 % (27.0-41.0); MEAN CELL VOLUME 87.6 fl (80.0-94.0); MEAN CORPUSCULAR HGB 28.5 pg (27.0-31.0); MEAN CORPUSCULAR HGB CONC 32.5 g/dl (33.0-37.0); MEAN PLATELET VOLUME 9.5 fl (9.6-12.3); MONO # 0.5 10*3/uL (0.1-1.0); MONO % 3.9 % (3.0-9.0); NEUT # 10.2 10*3/uL (2.3-7.9); NEUT % 84.6 % (47.0-73.0); PLATELET COUNT AUTOMATED 203 10*3/uL (130-400); RED BLOOD COUNT 4.53 10*6/uL (4.50-5.90); RED CELL DISTRI WIDTH 15.3 % (0-14.5); WHITE BLOOD COUNT 12.1 10*3/uL (4.8-10.8)
[2024-05-04 15:53] LABS: POTASSIUM 4.5 mmol/L (3.4-5.1); TOTAL PROTEIN 7.6 gm/dL (6.0-8.0)
[2024-05-04] MEDS ORDERED: Magnesium Hydroxide 30 ML UDC PO PRN (16:45)
[2024-05-04] MEDS ORDERED: ACETAMINOPHEN 650 MG SUPP R PRN (16:45)
[2024-05-04] MEDS ORDERED: Ondansetron Hydrochloride 4 MG/2 ML VIAL IV PRN (16:45)
[2024-05-04] MEDS ORDERED: ACETAMINOPHEN 325 MG TAB PO PRN (16:45)
[2024-05-04] MEDS ORDERED: BISACODYL 5 MG TAB PO PRN (16:45)
[2024-05-04] MEDS ORDERED: Acetaminophen/Hydrocodone 5 MG/325 MG TABLET PO PRN (16:45)
[2024-05-04] MEDS ORDERED: TEMAZEPAM 15 MG CAP PO PRN (16:45)
[2024-05-04 18:00] VITALS: BP 160/91
[2024-05-04] MEDS ORDERED: FUROSEMIDE 40 MG/4 ML VIAL IV SCH (18:00)
[2024-05-04 19:21] VITALS: BP 156/67
[2024-05-04] MEDS ORDERED: DEXTROSE 10 % IN WATER 250 ML IV PRN (23:45)
[2024-05-05 04:53] VITALS: BP 152/74
[2024-05-05 06:06] LABS: HEMATOCRIT 34.6 % (42.0-52.0); MEAN CELL VOLUME 84.6 fl (80.0-94.0); MEAN CORPUSCULAR HGB 29.1 pg (27.0-31.0); MEAN CORPUSCULAR HGB CONC 34.4 g/dl (33.0-37.0); MEAN PLATELET VOLUME 10.3 fl (9.6-12.3); PLATELET COUNT AUTOMATED 185 10*3/uL (130-400); RED BLOOD COUNT 4.09 10*6/uL (4.50-5.90); RED CELL DISTRI WIDTH 15.1 % (0-14.5); WHITE BLOOD COUNT 9.2 10*3/uL (4.8-10.8)
[2024-05-05 06:11] LABS: MANUAL DIFF REFLEX YES
[2024-05-05 06:28] LABS: ACT PARTIAL THROMBO TIME 31.7 SECONDS (20.0-32.1)
[2024-05-05 06:30] LABS: POTASSIUM 4.9 mmol/L (3.4-5.1); TOTAL PROTEIN 6.7 gm/dL (6.0-8.0)
[2024-05-05] MEDS ORDERED: INSULIN LISPRO 1 UNIT/0.01 ML SQ SCH (07:30)
[2024-05-05 07:39] LABS: PLATELET SUFFICIENCY NORMAL (NORMAL); TOTAL CELLS COUNTED 100 #CELLS
[2024-05-05] MEDS ORDERED: ASPIRIN 325 MG TAB PO SCH (10:00)
[2024-05-05] MEDS ORDERED: Insulin Glargine, Recombinan 1 UNIT/0.01 ML SC SCH (10:00)
[2024-05-05] MEDS ORDERED: Enoxaparin Sodium 30 MG/0.3 ML SYR SC SCH (10:00)
[2024-05-05] MEDS ORDERED: ATORVASTATIN CALCIUM 40 MG TABLET PO SCH (10:00)
[2024-05-05] MEDS ORDERED: Losartan Potassium 50 MG TAB PO SCH (10:00)
[2024-05-05 19:39] VITALS: BP 155/77
[2024-05-05 21:15] VITALS: BP 160/78
[2024-05-06] VITALS: BP 148/72
[2024-05-06 07:15] LABS: POTASSIUM 4.5 mmol/L (3.4-5.1)
[2024-05-06 08:00] VITALS: BP 171/97
[2024-05-06] MEDS ORDERED: amLODIPine besylate 5 MG TAB PO ONE (10:40)
[2024-05-06 12:00] VITALS: BP 168/80
[2024-05-06] MEDS ORDERED: HEPARIN SODIUM 5,000 UNIT/ML VIAL SC SCH (14:00)
[2024-05-06 16:00] VITALS: BP 151/75
[2024-05-06 20:10] VITALS: BP 150/92
[2024-05-07 00:09] VITALS: BP 146/76
[2024-05-07 06:24] LABS: POTASSIUM 4.2 mmol/L (3.4-5.1)
[2024-05-07] MEDS ORDERED: Technetium Tc 99M Tetrofosmi 0.23 MG KIT IJ SCH (08:05)
[2024-05-07 08:09] VITALS: BP 165/90
[2024-05-07] MEDS ORDERED: Regadenoson 0.4 MG/5 ML SYR IV ONE (08:46)
[2024-05-07] MEDS ORDERED: amLODIPine besylate 5 MG TAB PO SCH (10:00)
[2024-05-07 12:11] VITALS: BP 156/82
[2024-05-07 16:00] VITALS: BP 160/80
[2024-05-08] MEDS ORDERED: FUROSEMIDE 40 MG TAB PO SCH (10:00)
== END 2024-05-07 17:13 | disposition home or self-care (01) | DRG 280 ==
LOC: ED 12:12 → 4E 16:23 → EDHOLD 16:23 → 4E 05-05 20:46
PROVIDERS: Emergency Medicine; Internal Medicine; Student in an Organized Health Care Education/Training Program; ADMIT Internal Medicine; ATTEND Internal Medicine
PROC: 0HBNXZZ Excision of Left Foot Skin, External Approach (ICD-10-PCS; principal; 2024-05-06)
PROC: 4A02XM4 Measurement of Cardiac Total Activity, External Approach (ICD-10-PCS; 2024-05-07)
PROC: 3E073KZ Introduction of Other Diagnostic Substance into Coronary Artery, Percutaneous Approach (ICD-10-PCS; 2024-05-07)
DX: I13.0 Hypertensive heart and chronic kidney disease with heart failure and stage 1 through stage 4 chronic kidney disease, or unspecified chronic kidney disease (principal); I50.33 Acute on chronic diastolic (congestive) heart failure; I21.A1 Myocardial infarction type 2; N17.0 Acute kidney failure with tubular necrosis; N18.4 Chronic kidney disease, stage 4 (severe); Z68.43 Body mass index [BMI] 50.0-59.9, adult; Q04.8 Other specified congenital malformations of brain; J44.0 Chronic obstructive pulmonary disease with (acute) lower respiratory infection; E11.51 Type 2 diabetes mellitus with diabetic peripheral angiopathy without gangrene; E11.65 Type 2 diabetes mellitus with hyperglycemia; L89.890 Pressure ulcer of other site, unstageable; L89.896 Pressure-induced deep tissue damage of other site; E66.01 Morbid (severe) obesity due to excess calories; D64.9 Anemia, unspecified; E11.42 Type 2 diabetes mellitus with diabetic polyneuropathy; E55.9 Vitamin D deficiency, unspecified; G47.33 Obstructive sleep apnea (adult) (pediatric); Z79.4 Long term (current) use of insulin; Z87.891 Personal history of nicotine dependence; Z79.1 Long term (current) use of non-steroidal anti-inflammatories (NSAID); Z79.899 Other long term (current) drug therapy; Z90.49 Acquired absence of other specified parts of digestive tract; Z79.51 Long term (current) use of inhaled steroids

== ENCOUNTER 2024-08-12 05:39 | Inpatient (IN) | payer OTHER ==
[~2024-08-12] VITALS: Ht 172.7 cm; Wt 152.4 kg
[~2024-08-12 05:39] MED LIST changes: +LOSARTAN POTASS50 M1 PO
[2024-08-12 05:45] VITALS: BP 161/76
[2024-08-12 06:35] LABS: BASO # 0.1 10*3/uL (0.0-0.1); BASO % 0.5 % (0.0-1.0); EOS # 0.2 10*3/uL (0.0-0.4); EOS % 1.7 % (1.0-4.0); LYMPH # 0.9 10*3/uL (1.3-4.4); LYMPH % 8.5 % (27.0-41.0); MEAN CELL VOLUME 91.2 fl (80.0-94.0); MEAN CORPUSCULAR HGB 29.7 pg (27.0-31.0); MEAN CORPUSCULAR HGB CONC 32.6 g/dl (33.0-37.0); MEAN PLATELET VOLUME 9.8 fl (9.6-12.3); MONO # 0.5 10*3/uL (0.1-1.0); MONO % 4.8 % (3.0-9.0); NEUT # 9.1 10*3/uL (2.3-7.9); NEUT % 83.9 % (47.0-73.0); PLATELET COUNT AUTOMATED 192 10*3/uL (130-400); RED CELL DISTRI WIDTH 14.5 % (0-14.5); WHITE BLOOD COUNT 10.9 10*3/uL (4.8-10.8)
[2024-08-12 06:56] LABS: POTASSIUM 4.5 mmol/L (3.4-5.1); TOTAL PROTEIN 7.2 gm/dL (6.0-8.0)
[2024-08-12] MEDS ORDERED: BUMETANIDE 1 MG/4 ML VIAL IV ONE (07:20)
[2024-08-12 07:54] VITALS: BP 170/75
[2024-08-12] MEDS ORDERED: ACETAMINOPHEN 325 MG TAB PO PRN (08:45)
[2024-08-12] MEDS ORDERED: BISACODYL 5 MG TAB PO PRN (08:45)
[2024-08-12] MEDS ORDERED: Ondansetron Hydrochloride 4 MG/2 ML VIAL IV PRN (08:45)
[2024-08-12] MEDS ORDERED: DEXTROSE 10 % IN WATER 250 ML IV PRN (11:35)
[2024-08-12] MEDS ORDERED: HEPARIN SODIUM 5,000 UNIT/ML VIAL SC SCH (14:00)
[2024-08-12] MEDS ORDERED: INSULIN LISPRO 1 UNIT/0.01 ML SQ SCH (16:30)
[2024-08-12] MEDS ORDERED: FUROSEMIDE 40 MG/4 ML VIAL IV SCH (18:00)
[2024-08-12 20:00] VITALS: BP 104/88
[2024-08-12 22:00] VITALS: BP 173/84
[2024-08-13 07:00] LABS: BASO % 0.1 % (0.0-1.0); EOS % 0.2 % (1.0-4.0); HEMATOCRIT 31.2 % (42.0-52.0); LYMPH % 7.9 % (27.0-41.0); MEAN CELL VOLUME 89.9 fl (80.0-94.0); MEAN CORPUSCULAR HGB 29.7 pg (27.0-31.0); MONO # 0.9 10*3/uL (0.1-1.0); MONO % 6.7 % (3.0-9.0); NEUT % 84.4 % (47.0-73.0); PLATELET COUNT AUTOMATED 210 10*3/uL (130-400); RED BLOOD COUNT 3.47 10*6/uL (4.50-5.90); RED CELL DISTRI WIDTH 14.2 % (0-14.5)
[2024-08-13 07:24] LABS: POTASSIUM 4.5 mmol/L (3.4-5.1); TOTAL PROTEIN 7.3 gm/dL (6.0-8.0)
[2024-08-13 08:00] VITALS: BP 161/75
[2024-08-13] MEDS ORDERED: CARVEDILOL25 MG PO (08:44)
[2024-08-13] MEDS ORDERED: CARVEDILOL3.125 MG PO (08:46)
[2024-08-13] MEDS ORDERED: LANTUS SOL100 UNIT/1 SC (08:48)
[2024-08-13] MEDS ORDERED: APRESOLINE25 MG PO (08:54)
[2024-08-13] MEDS ORDERED: ROSUVASTATIN CA20 MG PO (08:55)
[2024-08-13] MEDS ORDERED: ATORVASTATIN CALCIUM 40 MG TABLET PO SCH (10:00)
[2024-08-13] MEDS ORDERED: amLODIPine besylate 10 MG TAB PO SCH (10:00)
[2024-08-13] MEDS ORDERED: CARVEDILOL 3.125 MG TAB PO SCH (10:00)
[2024-08-13 12:00] VITALS: BP 178/83
[2024-08-13] MEDS ORDERED: hydrALAZINE hydrochloride 25 MG TAB PO SCH (14:00)
[2024-08-13] MEDS ORDERED: COREG6.25 MG PO (14:38)
[2024-08-14] MEDS ORDERED: Insulin Glargine, Recombinan 1 UNIT/0.01 ML SC SCH (06:00)
== END 2024-08-13 17:11 | disposition home or self-care (01) | DRG 291 ==
LOC: ED 05:39 → 4E 07:23 → EDHOLD 07:23 → 4E 20:40
PROVIDERS: Emergency Medicine; ADMIT Internal Medicine; ATTEND Internal Medicine
DX: I13.0 Hypertensive heart and chronic kidney disease with heart failure and stage 1 through stage 4 chronic kidney disease, or unspecified chronic kidney disease (principal); I50.33 Acute on chronic diastolic (congestive) heart failure; N17.0 Acute kidney failure with tubular necrosis; N18.4 Chronic kidney disease, stage 4 (severe); Z68.43 Body mass index [BMI] 50.0-59.9, adult; E87.1 Hypo-osmolality and hyponatremia; E66.01 Morbid (severe) obesity due to excess calories; D72.828 Other elevated white blood cell count; D64.9 Anemia, unspecified; E11.22 Type 2 diabetes mellitus with diabetic chronic kidney disease; E11.65 Type 2 diabetes mellitus with hyperglycemia; J44.9 Chronic obstructive pulmonary disease, unspecified; G47.33 Obstructive sleep apnea (adult) (pediatric); E11.40 Type 2 diabetes mellitus with diabetic neuropathy, unspecified; E11.51 Type 2 diabetes mellitus with diabetic peripheral angiopathy without gangrene; F95.2 Tourette's disorder; Z87.891 Personal history of nicotine dependence

== ENCOUNTER 2024-08-20 02:19 | Emergency (ER) | payer MEDICARE, MEDICAID ==
[~2024-08-20] VITALS: Ht 177.8 cm; Wt 117.9 kg
[~2024-08-20 02:19] MED LIST changes: +CARVEDILOL3.125 MG PO; +COREG6.25 MG PO; +ROSUVASTATIN CA20 MG PO
[2024-08-20 03:31] LABS: BASO # 0.1 10*3/uL (0.0-0.1); BASO % 0.5 % (0.0-1.0); EOS # 0.4 10*3/uL (0.0-0.4); LYMPH # 1.8 10*3/uL (1.3-4.4); LYMPH % 17.7 % (27.0-41.0); MEAN CELL VOLUME 89.6 fl (80.0-94.0); MEAN CORPUSCULAR HGB 30.7 pg (27.0-31.0); MEAN CORPUSCULAR HGB CONC 34.3 g/dl (33.0-37.0); MEAN PLATELET VOLUME 9.6 fl (9.6-12.3); MONO # 0.8 10*3/uL (0.1-1.0); MONO % 8.1 % (3.0-9.0); NEUT # 6.9 10*3/uL (2.3-7.9); NEUT % 68.8 % (47.0-73.0); PLATELET COUNT AUTOMATED 165 10*3/uL (130-400); RED BLOOD COUNT 3.35 10*6/uL (4.50-5.90); RED CELL DISTRI WIDTH 14.2 % (0-14.5)
[2024-08-20 03:54] LABS: ALKALINE PHOSPHATASE 62 U/L (46-116); BUN 60 mg/dl (9-23); CHLORIDE 108 mmol/L (98-107); CPK 127 U/L (34-171); POTASSIUM 5.1 mmol/L (3.4-5.1); SGPT/ALT 14 U/L (5-49); TOTAL PROTEIN 6.5 gm/dL (6.0-8.0)
[2024-08-20 04:07] LABS: ETHYL ALCOHOL < 3.0 mg/dl (<3)
[2024-08-20 05:50] LABS: BILIRUBIN Negative (Negative); BLOOD 1+ (Negative); CLARITY Cloudy (Clear); COLOR Yellow (Yellow); GLUCOSE 2+ (Negative); KETONE Negative (Negative); LEUKO ESTERASE 2+ (Negative); NITRITE Positive (Negative); PH 5.5 (4.5-8.0); SPECIFIC GRAVITY 1.015 (1.001-1.030); UROBILINOGEN 0.2 E.U./dl (0.0-1.0)
[2024-08-20 05:55] LABS: WBC 41-50 wbc/hpf (0-5)
[2024-08-20 05:56] LABS: BACTERIA 2+
[2024-08-20 06:01] LABS: URINE AMPHETAMINES Negative (1000ng/ml); URINE BARBITURATES Negative (200ng/ml); URINE BENZODIAZEPINES Negative (200ng/ml); URINE CANNABINOIDS (THC) Negative (50ng/ml); URINE COCAINE Negative (300ng/ml); URINE METHADONE Negative (300ng/ml); URINE OPIATES Negative (300ng/ml); URINE PHENCYCLIDINE Negative (25ng/ml)
[2024-08-20] MEDS ORDERED: Lidocaine Hydrochloride 5 ML AMP IM ONE (06:40)
[2024-08-20] MEDS ORDERED: CIPRO500 MG PO (08:47)
== END 2024-08-20 08:52 | disposition home or self-care (01) ==
LOC: ED 02:19
PROVIDERS: Emergency Medicine
DX: F43.20 Adjustment disorder, unspecified (principal); I25.10 Atherosclerotic heart disease of native coronary artery without angina pectoris; E11.65 Type 2 diabetes mellitus with hyperglycemia; E87.1 Hypo-osmolality and hyponatremia; D63.1 Anemia in chronic kidney disease; E11.22 Type 2 diabetes mellitus with diabetic chronic kidney disease; I13.0 Hypertensive heart and chronic kidney disease with heart failure and stage 1 through stage 4 chronic kidney disease, or unspecified chronic kidney disease; N18.4 Chronic kidney disease, stage 4 (severe); I50.9 Heart failure, unspecified; J44.9 Chronic obstructive pulmonary disease, unspecified; E11.40 Type 2 diabetes mellitus with diabetic neuropathy, unspecified; Z98.890 Other specified postprocedural states; Z04.9 Encounter for examination and observation for unspecified reason; Z87.891 Personal history of nicotine dependence; Z79.899 Other long term (current) drug therapy